=== PATIENT | female | born 1955 | race Caucasian/White ===

== ENCOUNTER 2017-12-19 13:09 | Inpatient (IN) | payer MEDICAID, SELFPAY ==
[2017-12-19] VITALS (10 sets, daily range): BP systolic 107–135; BP diastolic 71–94; PULSE 86–112; RESP 15–18; TEMP 36.2–37; O2SAT 95–100; BMI 20.5; BMI 22.3
[2017-12-19 14:51] LABS: Absolute Lymphocyte Count 0.51 X10^3/ul (0.83-4.51); Absolute Neutrophil Count 7.6 X10^3/uL (2.0-7.7); Hematocrit 42.3 % (37-47); Hemoglobin 14.3 g/dl (12.0-15.0); Lymphocyte # 0.51 X10^3/ul (4.0); Lymphocyte % 5.9 % (19-41); Mean Corp Hgb Conc 33.8 g/gl (32-36); Mean Corpuscular Hgb 33.7 pg (27.0-32.0); Mean Corpuscular Volume 99.8 fL (81-99); Mean Platelet Vol. 10.1 fl (6.2-12.0); Monocyte# 0.47 X10^3/uL; Monocyte% 5.5 % (0-10); Neutrophil # 7.61 X10^3/uL (2.7-7.7); Neutrophil % 88.5 % (47-70); Platelet Count 115 K/mm3 (150-450); RBC Distribution Width CV 12.4 % (11.6-14.6); RBC Distribution Width SD 45.3 fl (35.1-43.9); Red Blood Count 4.24 M/mm3 (4.2-5.4); White Blood Count 8.6 K/mm3 (4.4-11.0)
[2017-12-19 14:54] LABS: Differential Indicated SCAN CRITERIA MET; POSITIVE COUNT NO; POSITIVE DIFFERENTIAL YES; POSITIVE MORPHOLOGY NO
[2017-12-19] MEDS: 0.9% Normal Saline 1,000 ML 125 ML IV (14:56)
[2017-12-19 14:58] LABS: Mucous, Urine 0 SEEN /hpf (<or=2+); Red Blood Cells-Urine 0 SEEN /hpf (0-5)
[2017-12-19 15:01] LABS: Color, Urine Yellow (Yellow); Glucose, Dipstick Normal (Normal); Ketone-Dipstick 5 mg/dl (Negative); Leukocyte Esterase-Dipstick 25 /ul (Negative); Nitrite-Dipstick Negative (Negative); Occult Blood-Urine Negative /ul (Negative); Protein-Dipstick 15 mg/dl (Negative); Urine Bilirubin Dipstick Negative (Negative); Urine Clarity Sl. Cloudy (Clear); Urine Urobilinogen 1 mg/dl (Normal)
[2017-12-19 15:03] LABS: Anion Gap 11 (5-15); BUN 15 mg/dL (7-18); BUN/Creat Ratio 17.5 RATIO (10-20); Calcium,Total 9.9 mg/dL (8.5-10.1); Chloride 98 mmol/L (98-107); Creatinine, Serum 0.86 mg/dL (0.55-1.02); EST Glomerular Filtration Rate 71 mL/min (>60); Est Glom Filt Rate - Afr Amer 86 mL/min (>60); Estimated Creatinine Clearance 53.64 ml/min; Glucose 207 mg/dL (74-106); Potassium 4.4 mmol/L (3.5-5.1); Sodium Level 133 mmol/L (136-145)
[2017-12-19 15:07] LABS: Bacteria RARE /hpf (None Seen); Squamous Epithelial Cells - UA 5-10 SEEN /hpf (5-10); White Blood Cells 0-5 SEEN /hpf (0-5)
[2017-12-19 15:09] LABS: Platelet Estimate SLT DEC (ADEQ)
[2017-12-19 15:16] LABS: Lactic Acid 1.4 mmol/L (0.4-2.0)
--- NOTE | 2017-12-19 16:53 | NURSING ---
DR LIV KIM
[2017-12-19] MEDS: Ondansetron 4 MG/2 ML Vial IV (16:55)
[2017-12-19] MEDS: Morphine 4 MG/ML Syringe IV (16:57)
--- NOTE | 2017-12-19 17:06 | ED.DCSUM_ITS ---
- ER Visit Summary Date of Service: 12/19/17 Chief Complaint: [Abdominal pain] History of Present Illness: The patient is a 62 F [presents the emergency department complaint of abdominal pain that started 2 days ago. Patient describes nausea and she vomited 3 or 4 times yesterday. Patient states her last bowel movement was about 3-1/2 days ago. Patient denies any fever. She denies any new medications. She denies any blood in her stool. Patient has had prior hysterectomy but no other abdominal surgeries. Patient does have a history of cirrhosis of the liver with ascites.] Physical Examination: [HEENT-PERRLA, EOMI. Cranial nerves II through XII grossly intact. TMs clear. Mucous membranes moist. No adenopathy. Cardiovascular-regular rate and rhythm without murmur or ectopy Lungs-clear to auscultation, chest wall stable without crepitus or subcu emphysema Abdomen-hypoactive bowel sounds. Patient has diffuse tenderness mostly to the suprapubic area and left lower quadrant. There is no rebound, rigidity, or perineal signs. Extremities-intact ?4, normal range of motion, normal pulses, atraumatic] Test Results: [CBC with differential obtained showed a normal white blood cell count of 8.6, hemoglobin 14, hematocrit 42, platelets 115. Chemistries were unremarkable. Lactate was normal at 1.4. Urinalysis was normal. CT scan of the abdomen and pelvis with IV and p.o. contrast was read as a cecal volvulus with high-grade obstruction.] Emergency Department Course and Treatment: [I discussed case with Dr. Wells who is the surgeon electrical continuity inspector who asked that we place an NG tube to low intermittent suction in order PT and INR. Patient will be seen by the surgeon in the ER and likely taken to the OR] Treatment Plan: [Admit admit] Disposition: [Admit] Impression: [Cecal volvulus with high-grade obstruction This note was generated with Server[employer] dictation software. It may contain incorrect words, spelling, and punctuation that were not noted in review of the chart prior to signing ED Disposition - Plan for ED Patient: Chief Complaint: Abd Pain Referrals: Trevor Morales MD [Primary Care Provider] -
--- NOTE | 2017-12-19 17:14 | NURSING ---
OB CECAL VOLVULUS WITH HIGH GRADE OBSTRUCTION MED SURG [facility]TTA
[2017-12-19 17:37] LABS: International Normalized Ratio 1.1; Prothrombin Time (Protime)PT. 14.5 SECONDS (11.7-14.9)
[2017-12-19 17:38] LABS: Partial Thromboplast Time 33.6 Seconds (24.1-36.2)
--- NOTE | 2017-12-19 17:42 | NURSING ---
DR PECK IN ER
[2017-12-19 17:59] LABS: AST(SGOT) 58 U/L (15-37); Alanine Aminotransfer ALT/SGPT 35 U/L (13-56); Albumin, Serum 3.9 g/dL (3.2-5.0); Alkaline Phosphatase 106 U/L (45-117); Bilirubin, Direct 0.57 mg/dL (0.00-0.30); Globulin 4.1 g/dL (2.2-4.2)
--- NOTE | 2017-12-19 18:32 | PCM.HP.STD ---
Problem List (1) Cecal volvulus Status: Acute History of Present Illness Date of Admission: 12/19/17 The patient is a 62 year old F who presented to the emergency room with abdominal pain and nausea and vomiting of 2 days duration. The patient reports that her abdominal pain is diffuse. She says since receiving morphine in the ER her pain has subsided. She said she has not had any abdominal surgeries except for hysterectomy. She has never had a bowel obstruction in the past or volvulus in the past. She does not have any fever or chills. She says she has not had any bowel movements or gas in the last 48 hours. Past Medical History Past Medical History (Chronic Problems): Chronic Problems Clavicular fracture (Chronic) Left wrist fracture (Chronic) Alcohol abuse (Chronic) Subarachnoid hemorrhage following injury (Chronic) Allergies No Known Allergies Allergy (Verified 12/19/17 13:12) Home Medications: Ambulatory Orders Medication Instructions Recorded Folic Acid 1 mg PO DAILY@0800 08/01/15 Multivitamins,Ther W-Minerals 1 tablet PO DAILYCM tablet 08/04/15 [Multivitamin With Minerals] Levothyroxine [Synthroid] 25 mcg PO DAILY #30 tablet 08/15/15 Lactulose [Chronulac] 30 gm PO BID 09/22/16 Vitamin B Complex 1 each PO DAILY 09/22/16 Surgical History: hysterectomy, tonsillectomy, - - . 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 Smoking Status: Never smoker - *Family History Maternal History Items: No pertinent history Paternal History Items: Heart Disease Review of Systems Constitutional: Denies: Chills, Fever Eyes: Denies: Drainage HEENT: Denies: Difficulty Swallowing Cardiovascular: Denies: Chest Pain Respiratory: Denies: Cough, Shortness of Breath Gastrointestinal: Reports: Abdominal Pain, Nausea, Vomiting Genitourinary: Denies: Incontinence Musculoskeletal: Denies: Joint Tenderness Skin: Denies: Dryness Neurological: Denies: Balance problems Psychiatric: Denies: Anxiety Hematologic/ Lymphatic: Denies: Anemia VTE Information - Inpt Only VTE Present on Admission: No Patient Problems: Active and Suspected Problems Cecal volvulus (Acute) - Physical Exam General: Alert, Oriented x3, Cooperative, No apparent distress HEENT: Atraumatic, PERRLA, EOMI, Normocephalic Oral: Moist Mucosa Neck: No JVD Lungs: Normal air movement Cardiovascular: Regular Rhythm, Tachycardic Abdomen: Soft, Distended, Tender Extremities: No clubbing Skin: No rashes Musculoskeletal: No Muscle Wasting Neurological: Cranial nerves II-XII grossly intact Psych/Mental Status: Normal Affect, Appropriate Vital Signs Temp Pulse Resp BP Pulse Ox 98.6 F 105 H 16 125/92 H 96 12/19/17 18:13 12/19/17 18:13 12/19/17 18:13 12/19/17 18:13 12/19/17 18:13 Oxygen Delivery Method Room Air Weight: 112 lb Body Mass Index (BMI) 20.5 Laboratory Tests Past 24 Hrs 12/19/17 12/19/17 12/19/17 14:40 14:40 14:40 WBC 8.6 RBC 4.24 Hgb 14.3 Hct 42.3 MCV 99.8 H MCH 33.7 H MCHC 33.8 RDW 12.4 RDW Differential 45.3 H Plt Count 115 L MPV 10.1 Immature Gran % (Auto) 0.100 Neut % (Auto) 88.5 H Lymph % (Auto) 5.9 L [place] % (Auto) 5.5 Eos % (Auto) 0.0 Baso % (Auto) 0.0 Absolute Neuts (auto) 7.6 Absolute Lymphs (auto) 0.51 L Total Counted Not Reportable Platelet Estimate SLT DEC PT INR APTT Sodium 133 L Potassium 4.4 Chloride 98 Carbon Dioxide 24.0 Anion Gap 11 BUN 15 Creatinine 0.86 Estim Creat Clear Calc 53.64 Est GFR (MDRD) Af Amer 86 Est GFR (MDRD) Non-Af 71 BUN/Creatinine Ratio 17.5 Glucose 207 H Lactic Acid 1.4 Calcium 9.9 Total Bilirubin Direct Bilirubin AST ALT Alkaline Phosphatase Total Protein Albumin Globulin Urine Color Urine Clarity Urine pH Ur Specific [place] Urine Protein Urine Glucose (UA) Urine Ketones Urine Occult Blood Urine Nitrite Urine Bilirubin Urine Urobilinogen Ur Leukocyte Esterase Urine RBC Urine WBC Ur Squamous Epith Cells Urine Bacteria Urine Mucus 12/19/17 12/19/17 12/19/17 14:40 14:40 14:45 WBC RBC Hgb Hct MCV MCH MCHC RDW RDW Differential Plt Count MPV Immature Gran % (Auto) Neut % (Auto) Lymph % (Auto) [place] % (Auto) Eos % (Auto) Baso % (Auto) Absolute Neuts (auto) Absolute Lymphs (auto) Total Counted Platelet Estimate PT 14.5 INR 1.1 APTT 33.6 Sodium Potassium Chloride Carbon Dioxide Anion Gap BUN Creatinine Estim Creat Clear Calc Est GFR (MDRD) Af Amer Est GFR (MDRD) Non-Af BUN/Creatinine Ratio Glucose Lactic Acid Calcium Total Bilirubin 2.20 H Direct Bilirubin 0.57 H AST 58 H ALT 35 Alkaline Phosphatase 106 Total Protein 8.0 Albumin 3.9 Globulin 4.1 Urine Color Yellow Urine Clarity Sl. Cloudy Urine pH 6.0 Ur Specific [place] 1.020 Urine Protein 15 H Urine Glucose (UA) Normal Urine Ketones 5 H Urine Occult Blood Negative Urine Nitrite Negative Urine Bilirubin Negative Urine Urobilinogen 1 H Ur Leukocyte Esterase 25 H Urine RBC 0 SEEN Urine WBC 0-5 SEEN Ur Squamous Epith Cells 5-10 SEEN Urine Bacteria RARE Urine Mucus 0 SEEN Clinical Impression(s) from Imaging Studies Abdomen/Pelvis CT 12/19/17 14:32 IMPRESSION: 1. Cecal volvulus with high-grade obstruction. No evidence of perforation. 2. Cholelithiasis. No evidence of acute cholecystitis. 3. Heterogeneous posterior segment of the liver without focal lesion. Question perfusion abnormality. Dr. Larsen discussed the critical findings with Dr. Jasso at 4:52 PM. N.B. : The above information has been verbally conveyed by Hazel Larsen MD to Sruthi Medrano, [facility] Physician, on 12/19/2017 16:53:45 (ET). Electronically Signed: Hazel Larsen MD at 16:53 EDT Tel , Service support , KUB X-Ray 12/19/17 17:30 IMPRESSION: 1. Nasogastric tube in the stomach. 2. Cecal volvulus with proximal bowel obstruction. Electronically Signed: Hazel Larsen MD at 18:00 EDT Tel , Service support , Assessment/Plan All Active Problems Cecal volvulus (Acute) Medical management (Acute) 62-year-old female with cecal volvulus and obstruction 1. The patient has obstipation of 48 hours and abdominal pain and distention. The CT scan confirms cecal volvulus with bowel obstruction. 2. I explained the recommendation of laparotomy with cecal resection and anastomosis. I explained the surgery in detail and the risks including but not limited to bleeding, infection, injury to other bowel, injury to other organs, wound infection, anastomotic leak. The patient understands all the risks and is willing to proceed with surgery. 3. The patient has a prior diagnosis of cirrhosis. Her liver enzymes are normal except for an elevated total bilirubin level. Her coagulation panel was normal. The patient has not required paracentesis in the last 2 years and has minimal ascites on CT scan. Rajendra Wells MD Pager: [facility] [address] [place] [address] [address] [place] [address] Office:
--- NOTE | 2017-12-19 19:00 | COL_PTH ---
PATIENT: RADHA FALLON LOC: MS3 U#:[id number] AGE/SX: 62/F ROOM: [facility] RE12/19/[address]: Dr. Rajendra Wells MD : 1955 BED: 1 DIS: 12/28/2017 SPEC #: [id number] RECD: 12/19/17 21:00 STATUS: FLO TAO #: [id number] KELLIE: 12/19/17 19:[address]: Rajendra Wells DEPT: SURGICAL PATHOLOGY RECD BY: Chloe Reis ENTERED: 12/22/17 08:44 SP TYPE: COLON OTHR DR: Dr. Trevor Morales MD Tissues: Colon, NOS Procedures: Surgery Specimen Level V HEADER OPERATION: Exploratory laparotomy, right hemicolectomy PRE-OP DIAGNOSIS: Cecal volvulus TISSUE SUBMITTED: Right colon MICROSCOPIC DIAGNOSIS Right colon, right hemicolectomy: Hemorrhagic infarction with ulceration and transmural acute inflammation and acute serositis. Focal benign lymphoid hyperplasia of small bowel. Margins of excision with no significant pathologic change. Appendix with no significant pathologic change. Eight out of eight lymph nodes with no significant pathologic change. AM:ana 12/24/17 COMMENT The findings are consistent with cecal volvulus and impending perforation. Clinical correlation is suggested. Case has been reviewed in consultation with Dr. Ewing who concurs with the above diagnosis. IDC:RUTH MICROSCOPIC DESCRIPTION Slides are reviewed. GROSS DESCRIPTION Received in fixative is one container labeled with the patient's name and designated right colon. The specimen consists of a right hemicolectomy specimen consisting of dilated cecum, a portion of partially dilated ascending colon and attached small intestine. The appendix measures 4 cm in length and up to 0.6 cm in diameter. Sections of the appendix reveal pinpoint lumen. The dilated cecum measures up to 15 cm in diameter. The cecum with ascending colon measures up to 30 cm in length. The portion of ascending colon measures 5 to 8 cm in diameter. The segment of small intestine measures 5 cm in length. Both resection margins are stapled. The serosal surface appears unremarkable. The attached tissue and mesentery measures up to 4 cm in length. Also present in the container is a segment of small intestine measuring 7.5 cm in length. Both resection margins are stapled. The smaller segment is opened and shows a small amount of fecal material. No mucosal lesion is identified. The segment of right hemicolectomy is open and shows the lumen contains fecal material. The mucosa shows focal area of ulceration and flattened mucosal fold. No mucosal lesion is identified. Sections will be submitted after overnight fixation. / RUTH:ana 12/22/17 Sections of pericolonic adipose tissue reveal multiple lymph nodes. The largest lymph node measures 1 cm in greatest dimension. Cooker Casing sections are submitted as follows: 1 ? detached segment of bowel, 2 ? appendix, 3 ? proximal and distal resection margin, 4 ? congested and hemorrhagic and ulcerated area, 5 ? tour sales representative sections of small and large intestine, 6 ? ileocecal valve, 7 ? multiple lymph nodes, 8 ? one bisected lymph node. / RUHT:ana 12/23/17 TC:2 CPT: 12079
--- NOTE | 2017-12-19 20:56 | PCM.OPRPT ---
Problem List (1) Cecal volvulus Status: Acute Report of Operation Date of Procedure: 12/19/17 Pre-Operative Diagnosis: Cecal volvulus Post-Operative Diagnosis: Same Surgery/Procedure Performed:: Exploratory laparoscopy with right hemicolectomy Specimen's removed: Cecum Description of Procedure: The patient was brought back to the operating room and general anesthesia was induced. A Dey catheter was placed and clear yellow urine was returned. The abdomen was prepped and draped in usual sterile fashion. Next an incision was made in the midline from the xiphoid to the umbilicus. It was sharply deepened to the fascia and the fascia was elevated and incised. The peritoneum was then elevated and incised and a finger was inserted into the abdomen and used to guard the colon as electrocautery was used to open the fascia and peritoneum inferiorly and superiorly. The incision had to be extended inferior to the umbilicus by a few centimeters. Next the very distended right colon was delivered from the abdomen. The colon was viable with very distended and there was a cecal volvulus. It appeared to involve the colon up until the distal ascending colon and the terminal ileum. An extra large wound protector was placed into the wound. An area just distal to the volvulus was elevated and a right angle clamp was used to make a small window in the mesentery just deep to the right colon. A 75 mm stapler was then placed across the colon and used to divide the ascending colon. Next the other side of the volvulus was located and the terminal ileum was taken down in the same fashion. Next the impact LigaSure was used to take the mesentery of the cecum just below the colon. The ileocecal vessel was located and tied off with an 0 silk stick tie. The specimen was then transferred to the back table and the mesentery was inspected for bleeding and was hemostatic. Next the small bowel was run proximally and appeared normal all the way to the ligament of Treitz. The colon was inspected and appeared normal as well. An area of the distal ascending colon was selected for anastomosis. The white line of Toldt was taken down this was mobilized. Next the staple line at the tenia was resected and one end of the stapler was placed into the colon. Next the staple line was taken down at the antimesenteric segment of the terminal small bowel and the other stapler segment was placed into the small bowel. The bowel segments were aligned so that the antimesenteric side of the small bowel met the tenia and was aligned. The distal segment of the stapler did not include any other bowel. The mesentery appeared smooth with no twisting of the bowel. The stapler was fired and removed. The inside of the bowel was inspected and the staple line appeared hemostatic with no bleeding. Next Matthieu clamps were placed across the enterotomy and a TL 60 stapler was used to close the enterotomy. There was some bleeding at the staple line and this was controlled with interrupted 3-0 silk sutures. There appeared to be good viability to the staple line with bleeding and no necrosis of tissue. The anastomosis was palpated with index and thumb and was widely patent. Next the mesenteric defect was closed with a running 3-0 Vicryl suture. Next the wound protector was removed from the abdomen and the abdomen was irrigated copiously with saline. The abdomen appeared hemostatic. The omentum was draped over the bowel. Next the staff all changed gloves and gowns and the abdomen was redraped over the old drape. The fascia was then grasped with Debora clamps and a large malleable was placed into the abdomen over the bowel. The fascia was reapproximated with 2 #1 PDS sutures starting at either end and meeting in the middle. Next the subcutaneous tissue was irrigated copiously. The skin was then closed with tigre. The incision was dressed with 4 x 4's and tape and the Dey will be left in to monitor urine output as well the NG tube. The specimen was removed intact without any perforation during the procedure. There was minimal spillage of any stool or bowel contents. - Admit VTE Documentation VTE Mechan Device Prophylaxis: SCD's
[2017-12-19] MEDS: 0.9% Normal Saline 1,000 ML 100 ML IV (23:22)
[2017-12-19] MEDS: Morphine 2 MG/ML Syringe IV (23:26)
[2017-12-19] MEDS: 0.9% NaCl Peripheral Flush Adult/Peds IV (23:26)
[2017-12-20] VITALS (9 sets, daily range): BP systolic 91–107; BP diastolic 53–74; PULSE 91–114; RESP 16–18; TEMP 36.7–37.2; O2SAT 88–97; BMI 22.3
[2017-12-20] MEDS: Morphine 2 MG/ML Syringe IV ×7 (03:22→22:19)
[2017-12-20 06:10] LABS: Absolute Lymphocyte Count 0.67 X10^3/ul (0.83-4.51); Absolute Neutrophil Count 5.3 X10^3/uL (2.0-7.7); Basophil# 0.01 X10^3/uL; Basophil% 0.2 % (0-1); Hematocrit 34.8 % (37-47); Lymphocyte # 0.67 X10^3/ul (4.0); Lymphocyte % 10.2 % (19-41); Mean Corp Hgb Conc 34.5 g/gl (32-36); Mean Corpuscular Hgb 35.2 pg (27.0-32.0); Mean Corpuscular Volume 102.1 fL (81-99); Mean Platelet Vol. 10.7 fl (6.2-12.0); Monocyte# 0.57 X10^3/uL; Monocyte% 8.6 % (0-10); Neutrophil # 5.34 X10^3/uL (2.7-7.7); Platelet Count 88 K/mm3 (150-450); RBC Distribution Width CV 12.4 % (11.6-14.6); RBC Distribution Width SD 45.1 fl (35.1-43.9); Red Blood Count 3.41 M/mm3 (4.2-5.4); White Blood Count 6.6 K/mm3 (4.4-11.0)
[2017-12-20 06:23] LABS: POSITIVE COUNT NO; POSITIVE DIFFERENTIAL NO; POSITIVE MORPHOLOGY NO
[2017-12-20] MEDS: 0.9% NaCl Peripheral Flush Adult/Peds IV ×5 (06:24→22:18)
[2017-12-20 06:37] LABS: Anion Gap 9 (5-15); BUN 7 mg/dL (7-18); BUN/Creat Ratio 11.3 RATIO (10-20); Calcium,Total 7.4 mg/dL (8.5-10.1); Chloride 106 mmol/L (98-107); Creatinine, Serum 0.62 mg/dL (0.55-1.02); EST Glomerular Filtration Rate 103 mL/min (>60); Est Glom Filt Rate - Afr Amer 125 mL/min (>60); Estimated Creatinine Clearance 74.41 ml/min; Glucose 126 mg/dL (74-106); Magnesium 1.7 mg/dL (1.6-2.6); Phosphorus 2.9 mg/dL (2.5-4.9); Potassium 3.7 mmol/L (3.5-5.1); Sodium Level 139 mmol/L (136-145)
--- NOTE | 2017-12-20 06:43 | NURSING ---
Attempted to mobilize pt. Assisted to edge of bed to dangle and pt c/o pain and dizziness. Morphine given recently. Assisted back to bed and positioned for comfort. No further needs voiced at this time. Call light in reach.
--- NOTE | 2017-12-20 07:21 | PCM.PN.SRG ---
Patient Problems: Active and Suspected Problems Cecal volvulus (Acute) Subjective: Patient doing well this morning and pain is well controlled. - Physical Exam General: Alert, Oriented x3, Cooperative, No apparent distress HEENT: Atraumatic, PERRLA, EOMI, Normocephalic Lungs: Normal air movement, No rhonchi Cardiovascular: Regular rate, Regular Rhythm Abdomen: Soft, Non-Distended, Tender - Appropriate mild tenderness, - - Dressings are dry Vital Signs Temp Pulse Resp BP Pulse Ox 98.3 F 98 16 101/61 94 12/20/17 06:18 12/20/17 06:18 12/20/17 06:18 12/20/17 06:18 12/20/17 06:18 Oxygen Flow Rate (L/min) 3 Oxygen Delivery Method Room Air Weight: 121 lb 14.65 oz Body Mass Index (BMI) 22.3 Intake and Output for Last 24 Hours 12/18/17 12/19/17 12/20/17 23:59 23:59 23:59 Intake Total 2600 / 2600 979 / 979 Output Total 150 / 250 400 / 400 Balance 2450 / 2350 579 / 579 Laboratory Tests Past 24 Hrs 12/20/17 12/20/17 05:30 05:30 WBC 6.6 RBC 3.41 L Hgb 12.0 Hct 34.8 L MCV 102.1 H MCH 35.2 H MCHC 34.5 RDW 12.4 RDW Differential 45.1 H Plt Count 88 L MPV 10.7 Immature Gran % (Auto) 0.000 Neut % (Auto) 81.0 H Lymph % (Auto) 10.2 L [place] % (Auto) 8.6 Eos % (Auto) 0.0 Baso % (Auto) 0.2 Absolute Neuts (auto) 5.3 Absolute Lymphs (auto) 0.67 L Total Counted Not Reportable Sodium 139 Potassium 3.7 Chloride 106 Carbon Dioxide 24.0 Anion Gap 9 BUN 7 Creatinine 0.62 Estim Creat Clear Calc 74.41 Est GFR (MDRD) Af Amer 125 Est GFR (MDRD) Non-Af 103 BUN/Creatinine Ratio 11.3 Glucose 126 H Calcium 7.4 L Phosphorus 2.9 Magnesium 1.7 Medical Necessity - Tobacco Use Smoking Status: Never smoker Assessment/Plan All Active Problems Cecal volvulus (Acute) Medical management (Acute) 62-year-old female status post right patel-colectomy for cecal volvulus 1. Patient's pain is well controlled. Her NG has had no output and is clear the tubing. I will remove her NG. Her blood pressure was in the 90s and she was a little tachycardic early this morning. I will order a fluid bolus. Urine is clear and the Dey tubing. I will remove her Dey and monitor strict I's and O's. Creatinine was normal. 2. Once patient begins to pass flatus she may start a clear liquid diet and advance as tolerated. When she is tolerating a diet she may be discharged home. 3. Hemoglobin stable. Lovenox starting tomorrow. 4. PPI/SCDs. Encourage ambulation and incentive spirometer. Rajendra Wells MD Pager: [facility] [address] [place] [address], [address] [place] [address] Office:
[2017-12-20] MEDS: 0.9% Normal Saline 1,000 ML 100 ML IV ×2 (09:01→17:49)
--- NOTE | 2017-12-20 09:10 | NURSING ---
Sat up at edge of bed for one minute. ASsisted pt walking to doorway and back to bed. Encouraged pt to sit up in chair but unable to. Medicated for pain. Dey out. Pt will call for assistance when has urge to void. She also is aware of need of strict I&O.
--- NOTE | 2017-12-20 11:08 | NURSING ---
Walked to bathroom and back to bed. Is willing to walk in smith in another hour.
[2017-12-21] VITALS (8 sets, daily range): BP systolic 98–125; BP diastolic 64–75; PULSE 99–112; RESP 16–18; TEMP 37.2–37.7; O2SAT 90–94
[2017-12-21] MEDS: Morphine 2 MG/ML Syringe IV ×7 (03:33→23:59)
[2017-12-21] MEDS: 0.9% Normal Saline 1,000 ML 100 ML IV ×3 (03:34→23:57)
--- NOTE | 2017-12-21 07:30 | PCM.PN.SRG ---
Patient Problems: Active and Suspected Problems Cecal volvulus (Acute) Subjective: Patient is doing well this morning. Pain is well-controlled on IV medication. She is not passing any flatus yet but she does feel rumbling. No nausea or vomiting. - Physical Exam General: Alert, Oriented x3, Cooperative Lungs: Normal air movement Cardiovascular: Regular rate, Regular Rhythm Abdomen: Soft, Non-Distended, Tender - Mild appropriate tenderness to palpation, - - Incision is clean dry and intact Vital Signs Temp Pulse Resp BP Pulse Ox 98.9 F 99 16 113/70 93 12/21/17 01:40 12/21/17 01:40 12/21/17 01:40 12/21/17 01:40 12/21/17 01:40 Oxygen Flow Rate (L/min) 2 Oxygen Delivery Method Room Air Weight: 121 lb 14.65 oz Body Mass Index (BMI) 22.3 Intake and Output for Last 24 Hours 12/19/17 12/20/17 12/21/17 23:59 23:59 23:59 Intake Total 2600 / 2600 2756 / 2756 1179 / 1179 Output Total 150 / 250 1050 / 1050 450 / 450 Balance 2450 / 2350 1706 / 1706 729 / 729 Medical Necessity - Tobacco Use Smoking Status: Never smoker Assessment/Plan All Active Problems Cecal volvulus (Acute) Medical management (Acute) 62-year-old female status post right hemicolectomy for cecal volvulus. POD 2 1. Awaiting bowel function. Will start clear liquids and advance as tolerated once patient is passing flatus. 2. IV fluids, n.p.o., SCDs, PPI, Lovenox. Rajendra Wells MD Pager: [facility] [address] [place] [address], [address] [place] [address] Office:
[2017-12-21] MEDS: 0.9% NaCl Peripheral Flush Adult/Peds IV ×4 (10:29→21:08)
[2017-12-21] MEDS: Enoxaparin 40 MG/0.4 ML Syringe SC (10:29)
[2017-12-22 00:02] VITALS: TEMP 37.1
[2017-12-22 03:20] VITALS: BP 125/85; PULSE 107; RESP 18; TEMP 36.8; O2SAT 93
[2017-12-22] MEDS: Morphine 2 MG/ML Syringe IV (03:21)
[2017-12-22] MEDS: 0.9% NaCl Peripheral Flush Adult/Peds IV ×5 (03:22→15:34)
[2017-12-22 06:52] LABS: Absolute Lymphocyte Count 0.83 X10^3/ul (0.83-4.51); Absolute Neutrophil Count 4.5 X10^3/uL (2.0-7.7); Basophil# 0.01 X10^3/uL; Basophil% 0.2 % (0-1); Eosinophil# 0.02 X10^3/uL; Eosinophils% 0.3 % (0-5); Hematocrit 35.5 % (37-47); Lymphocyte # 0.83 X10^3/ul (4.0); Lymphocyte % 13.9 % (19-41); Mean Corp Hgb Conc 33.8 g/gl (32-36); Mean Corpuscular Volume 103.5 fL (81-99); Mean Platelet Vol. 10.5 fl (6.2-12.0); Monocyte# 0.63 X10^3/uL; Monocyte% 10.5 % (0-10); Neutrophil # 4.49 X10^3/uL (2.7-7.7); Neutrophil % 74.9 % (47-70); Platelet Count 96 K/mm3 (150-450); RBC Distribution Width CV 12.7 % (11.6-14.6); RBC Distribution Width SD 46.7 fl (35.1-43.9); Red Blood Count 3.43 M/mm3 (4.2-5.4)
[2017-12-22 07:03] LABS: POSITIVE COUNT NO; POSITIVE DIFFERENTIAL NO; POSITIVE MORPHOLOGY NO
[2017-12-22 07:12] LABS: Anion Gap 16 (5-15); BUN 6 mg/dL (7-18); BUN/Creat Ratio 13.6 RATIO (10-20); Chloride 103 mmol/L (98-107); Creatinine, Serum 0.44 mg/dL (0.55-1.02); EST Glomerular Filtration Rate 154 mL/min (>60); Est Glom Filt Rate - Afr Amer 186 mL/min (>60); Estimated Creatinine Clearance 104.85 ml/min; Glucose 63 mg/dL (74-106); Potassium 3.1 mmol/L (3.5-5.1); Sodium Level 138 mmol/L (136-145)
--- NOTE | 2017-12-22 07:24 | PCM.WORK.EX ---
Work/School Excuse Work/School Excuse for:: Patient Please excuse this person from:: Work From: 12/19/17 through: 01/08/18
[2017-12-22] MEDS: Ketorolac 15 MG/ML Vial IV ×3 (07:48→21:30)
--- NOTE | 2017-12-22 08:08 | PCM.PN.SRG ---
Patient Problems: Active and Suspected Problems Cecal volvulus (Acute) Subjective: Patient is not having any nausea or vomiting. No flatus yet. - Physical Exam General: Alert HEENT: Atraumatic Lungs: Normal air movement Cardiovascular: Regular rate, Regular Rhythm Abdomen: Soft, Non-Distended, Tender - Appropriately tender to palpation, - - Incision clean dry and intact Vital Signs Temp Pulse Resp BP Pulse Ox 98.2 F 107 H 18 125/85 H 93 12/22/17 03:20 12/22/17 03:20 12/22/17 03:20 12/22/17 03:20 12/22/17 03:20 Oxygen Flow Rate (L/min) 2 Oxygen Delivery Method Room Air Weight: 121 lb 14.65 oz Body Mass Index (BMI) 22.3 Intake and Output for Last 24 Hours 12/20/17 12/21/17 12/22/17 23:59 23:59 23:59 Intake Total 2756 / 2756 2369 / 2369 1200 / 1200 Output Total 1050 / 1050 1205 / 1205 300 / 300 Balance 1706 / 1706 1164 / 1164 900 / 900 Laboratory Tests Past 24 Hrs 12/22/17 12/22/17 05:40 05:40 WBC 6.0 RBC 3.43 L Hgb 12.0 Hct 35.5 L MCV 103.5 H MCH 35.0 H MCHC 33.8 RDW 12.7 RDW Differential 46.7 H Plt Count 96 L MPV 10.5 Immature Gran % (Auto) 0.200 Neut % (Auto) 74.9 H Lymph % (Auto) 13.9 L [place] % (Auto) 10.5 H Eos % (Auto) 0.3 Baso % (Auto) 0.2 Absolute Neuts (auto) 4.5 Absolute Lymphs (auto) 0.83 Total Counted Not Reportable Sodium 138 Potassium 3.1 L Chloride 103 Carbon Dioxide 19.0 L Anion Gap 16 H BUN 6 L Creatinine 0.44 L Estim Creat Clear Calc 104.85 Est GFR (MDRD) Af Amer 186 Est GFR (MDRD) Non-Af 154 BUN/Creatinine Ratio 13.6 Glucose 63 L Calcium 8.0 L Medical Necessity - Tobacco Use Smoking Status: Never smoker Assessment/Plan All Active Problems Cecal volvulus (Acute) Medical management (Acute) 62-year-old female status post ileocecectomy for cecal volvulus, POD 3 1. Patient is not passing gas but she feels like she is close. She is not having any nausea or vomiting. I will try a clear liquid diet. 2. Hypokalemia-replaced 3. Add Toradol for pain control. Also add Colace. Rajendra Wells MD Pager: [facility] [address] [place] [address], [address] [place] [address] Office:
[2017-12-22] MEDS: Enoxaparin 40 MG/0.4 ML Syringe SC (09:06)
[2017-12-22] MEDS: Docusate Sodium 100 MG Capsule PO ×2 (09:06→21:30)
[2017-12-22 09:16] VITALS: BP 134/82; PULSE 106; RESP 18; TEMP 37.3; O2SAT 93
--- NOTE | 2017-12-22 10:25 | CASEMGMT ---
ANSELMO HAZEL Face to Face with patient for initial transition planning/care coordination assessment. RN CM introduced self and role at [facility]. Patient sitting up in bed, alert and oriented. Patient willing to participate in assessment and is able to answer all questions appropriately. Care providers, pharmacy, and demographics verified. See link attached. Patient wishes to discharge home, denies need for home health at this time. Patient states she has no further needs or concerns at this time. CM to follow for discharge planning needs that may arise. Disposition Plan: Patient to discharge home with family support and follow-up plans in place. Angelina TAYLOR, RN, CM
[2017-12-22 14:34] VITALS: BP 122/66; PULSE 107; RESP 18; TEMP 37.9; O2SAT 97
[2017-12-22 20:00] VITALS: BP 138/88; PULSE 104; RESP 16; TEMP 37.4; O2SAT 97
[2017-12-22] MEDS: oxyCODONE 5 MG Tablet PO (20:13)
[2017-12-23 02:00] VITALS: BP 136/89; PULSE 89; RESP 18; TEMP 37.3; O2SAT 96
[2017-12-23] MEDS: Ketorolac 15 MG/ML Vial IV ×2 (05:20→14:16)
[2017-12-23] MEDS: Levothyroxine 25 MCG TABLET PO (05:20)
[2017-12-23] MEDS: oxyCODONE 5 MG Tablet PO ×2 (05:20→20:39)
--- NOTE | 2017-12-23 06:50 | NURSING ---
Bladder scanned for >650. Dr. Wells notified. Order for straight cath obtained. Pt straight cath for 50cc of dark katarina urine. Dr. Wells notified, Give 500cc fluid bolus at this time.
[2017-12-23 07:46] VITALS: BP 134/82; PULSE 88; RESP 16; TEMP 36.8; O2SAT 98
--- NOTE | 2017-12-23 09:28 | PCM.PN.SRG ---
Patient Problems: Active and Suspected Problems Cecal volvulus (Acute) Subjective: Patient has low urine output overnight. Bladder scan showed 600 cc of fluid but on straight catheter only had 30 cc of concentrated urine. She did not tolerate much diet as she was not hungry. She is passing gas and had a small bowel movement. No nausea or vomiting. - Physical Exam General: Alert, Oriented x3, Cooperative Lungs: Normal air movement Cardiovascular: Regular rate, Regular Rhythm Abdomen: Soft, - - Incision is clean dry and intact with no drainage. Vital Signs Temp Pulse Resp BP Pulse Ox 98.2 F 88 16 134/82 H 98 12/23/17 07:46 12/23/17 07:46 12/23/17 07:46 12/23/17 07:46 12/23/17 07:46 Oxygen Flow Rate (L/min) 2 Oxygen Delivery Method Room Air Weight: 121 lb 14.65 oz Body Mass Index (BMI) 22.3 Intake and Output for Last 24 Hours 12/21/17 12/22/17 12/23/17 23:59 23:59 23:59 Intake Total 2369 / 2369 2369 / 2369 500 / 500 Output Total 1205 / 1205 700 / 700 210 / 210 Balance 1164 / 1164 1669 / 1669 290 / 290 Medical Necessity - Tobacco Use Smoking Status: Never smoker Assessment/Plan All Active Problems Cecal volvulus (Acute) Medical management (Acute) 62-year-old female status post right patel-colectomy for cecal volvulus, POD 4 1. Patient had a large amount of fluid on bladder scan but nothing on straight cath. This is suspicious for ascites. I will order an ultrasound of the abdomen. The patient is on Aldactone at home. Her vitals have been stable and she was making good urine so I will start this back up. 2. If the patient does have ascites I may ask for paracentesis by IR. Hold Lovenox today. 3. Diet as tolerated. I will add Ensure in case she is having ascites due to malnutrition. Rajendra Wells MD Pager: [facility] [address] [place] [address], [address] [place] [address] Office:
--- NOTE | 2017-12-23 11:13 | NURSING ---
Patient off until to U/S.
[2017-12-23] MEDS: Pantoprazole Sodium 40 MG Tablet PO (11:59)
[2017-12-23] MEDS: Spironolactone 50 MG Tablet 100 MG PO (11:59)
[2017-12-23 14:12] VITALS: BP 133/88; PULSE 88; RESP 18; TEMP 36.9; O2SAT 98
[2017-12-23] MEDS: Enoxaparin 40 MG/0.4 ML Syringe SC (15:26)
[2017-12-23] MEDS: Lactulose 20 GM/30 ML UDC 30 GM PO (17:05)
[2017-12-23 20:10] VITALS: BP 136/92; PULSE 87; RESP 16; TEMP 37.3; O2SAT 99
[2017-12-23] MEDS: Docusate Sodium 100 MG Capsule PO (20:39)
[2017-12-24] MEDS: Ondansetron 4 MG/2 ML Vial IV ×2 (00:29→08:45)
[2017-12-24 02:10] VITALS: BP 135/88; PULSE 86; RESP 16; TEMP 37.1; O2SAT 97
[2017-12-24] MEDS: oxyCODONE 5 MG Tablet PO ×2 (04:38→21:07)
[2017-12-24] MEDS: Levothyroxine 25 MCG TABLET PO (04:38)
--- NOTE | 2017-12-24 04:50 | NURSING ---
Midline incision dressing changed d/t moderate amount of serosanguineous drainage at the distal end.
[2017-12-24 06:20] LABS: Absolute Lymphocyte Count 0.69 X10^3/ul (0.83-4.51); Absolute Neutrophil Count 1.7 X10^3/uL (2.0-7.7); Basophil# 0.01 X10^3/uL; Basophil% 0.3 % (0-1); Eosinophil# 0.03 X10^3/uL; Eosinophils% 0.9 % (0-5); Hematocrit 33.6 % (37-47); Hemoglobin 11.6 g/dl (12.0-15.0); Lymphocyte # 0.69 X10^3/ul (4.0); Lymphocyte % 21.5 % (19-41); Mean Corp Hgb Conc 34.5 g/gl (32-36); Mean Corpuscular Hgb 34.1 pg (27.0-32.0); Mean Corpuscular Volume 98.8 fL (81-99); Mean Platelet Vol. 10.4 fl (6.2-12.0); Monocyte# 0.74 X10^3/uL; Monocyte% 23.1 % (0-10); Neutrophil # 1.73 X10^3/uL (2.7-7.7); Neutrophil % 53.9 % (47-70); Platelet Count 150 K/mm3 (150-450); RBC Distribution Width CV 12.3 % (11.6-14.6); RBC Distribution Width SD 42.7 fl (35.1-43.9); White Blood Count 3.2 K/mm3 (4.4-11.0)
[2017-12-24 06:29] LABS: POSITIVE COUNT NO; POSITIVE DIFFERENTIAL NO; POSITIVE MORPHOLOGY NO
[2017-12-24 06:39] LABS: ALB/GLOB Ratio 0.6 RATIO (0.9-2.4); AST(SGOT) 59 U/L (15-37); Alanine Aminotransfer ALT/SGPT 33 U/L (13-56); Albumin, Serum 2.3 g/dL (3.2-5.0); Alkaline Phosphatase 51 U/L (45-117); Anion Gap 11 (5-15); BUN 8 mg/dL (7-18); BUN/Creat Ratio 20.9 RATIO (10-20); Calcium,Total 8.4 mg/dL (8.5-10.1); Chloride 102 mmol/L (98-107); Creatinine, Serum 0.38 mg/dL (0.55-1.02); EST Glomerular Filtration Rate 181 mL/min (>60); Est Glom Filt Rate - Afr Amer 219 mL/min (>60); Globulin 3.6 g/dL (2.2-4.2); Glucose 105 mg/dL (74-106); Potassium 3.1 mmol/L (3.5-5.1); Protein, Total 5.9 g/dL (6.4-8.2); Sodium Level 136 mmol/L (136-145)
[2017-12-24] MEDS: 0.9% NaCl Peripheral Flush Adult/Peds IV ×3 (08:45→12:37)
[2017-12-24] MEDS: 0.9% Normal Saline 1,000 ML 75 ML IV (08:45)
--- NOTE | 2017-12-24 08:56 | PCM.PN.SRG ---
Patient Problems: Active and Suspected Problems Cecal volvulus (Acute) Subjective: Patient reports she is still passing flatus but she did have some vomiting overnight. She also had some fluid draining from her abdominal wound. - Physical Exam General: Alert, Oriented x3, Cooperative HEENT: LUIS EOMI Oral: Moist Mucosa Lungs: Normal air movement Cardiovascular: Regular rate, Regular Rhythm Abdomen: Soft, - - Patient is serous drainage from her inferior wound Vital Signs Temp Pulse Resp BP Pulse Ox 98.8 F 86 16 135/88 H 97 12/24/17 02:10 12/24/17 02:10 12/24/17 02:10 12/24/17 02:10 12/24/17 02:10 Oxygen Flow Rate (L/min) 2 Oxygen Delivery Method Room Air Weight: 121 lb 14.65 oz Body Mass Index (BMI) 22.3 Intake and Output for Last 24 Hours 12/22/17 12/23/17 12/24/17 23:59 23:59 23:59 Intake Total 2369 / 2369 2061 / 2061 450 / 450 Output Total 700 / 700 410 / 410 625 / 625 Balance 1669 / 1669 1651 / 1651 -175 / -175 Laboratory Tests Past 24 Hrs 12/24/17 12/24/17 05:10 05:10 WBC 3.2 L RBC 3.40 L Hgb 11.6 L Hct 33.6 L MCV 98.8 MCH 34.1 H MCHC 34.5 RDW 12.3 RDW Differential 42.7 Plt Count 150 MPV 10.4 Immature Gran % (Auto) 0.300 Neut % (Auto) 53.9 Lymph % (Auto) 21.5 [place] % (Auto) 23.1 H Eos % (Auto) 0.9 Baso % (Auto) 0.3 Absolute Neuts (auto) 1.7 L Absolute Lymphs (auto) 0.69 L Total Counted Not Reportable Sodium 136 Potassium 3.1 L Chloride 102 Carbon Dioxide 23.0 Anion Gap 11 BUN 8 Creatinine 0.38 L Estim Creat Clear Calc 121.40 Est GFR (MDRD) Af Amer 219 Est GFR (MDRD) Non-Af 181 BUN/Creatinine Ratio 20.9 H Glucose 105 Calcium 8.4 L Total Bilirubin 2.80 H AST 59 H ALT 33 Alkaline Phosphatase 51 Total Protein 5.9 L Albumin 2.3 L Globulin 3.6 Albumin/Globulin Ratio 0.6 L Medical Necessity - Tobacco Use Smoking Status: Never smoker Assessment/Plan All Active Problems Cecal volvulus (Acute) Medical management (Acute) 62-year-old female status post cecal resection 1. Patient had borderline urine output overnight. I will start her back on IV fluids. 2. Patient had vomiting overnight. I am getting a CT scan with oral and IV contrast. 3. Patient had some serous drainage from her wound which has been dry since surgery. I took the tigre out of the bottom 3 cm of her incision and opened the skin incision. There was a paredes of serous fluid that I palpated the lower fascia and it appeared intact. I will see in the CT scan if there is any dehiscence. 4. Hypokalemia-replace 5. If CT scan shows dehiscence I will take her back to the operating room for fascial closure and drain placement to control ascites. Patient has history of cirrhosis and I have started her back on her Spironolactone. Rajendra Wells MD Pager: [facility] [address] [place] [address], [address] [place] [address] Office:
[2017-12-24 09:17] VITALS: BP 141/91; PULSE 99; RESP 18; TEMP 37; O2SAT 98
[2017-12-24] MEDS: Spironolactone 50 MG Tablet 100 MG PO (09:19)
[2017-12-24] MEDS: Enoxaparin 40 MG/0.4 ML Syringe SC (11:44)
[2017-12-24] MEDS: Furosemide 40 MG/4 ML Vial IV (12:37)
[2017-12-24] MEDS: Pantoprazole Sodium 40 MG Tablet PO (12:46)
[2017-12-24 13:16] LABS: International Normalized Ratio 1.3; Prothrombin Time (Protime)PT. 15.9 SECONDS (11.7-14.9)
[2017-12-24 13:17] LABS: Partial Thromboplast Time 33.2 Seconds (24.1-36.2)
--- NOTE | 2017-12-24 13:24 | PCM.PN.BLA ---
Progress Note After opening the patient's abdominal wound I ordered a CT scan. The CT scan revealed ascites but no sign of evisceration or dehiscence. The CT also revealed a very distended small bowel and stomach. There was contrast in the ascending transverse and rectum along with gas. I believe the anastomosis is patent but the patient has developed an ileus. I will stop her IV fluid and give her a dose of diuretic and have a paracentesis performed. I will make the patient n.p.o. and if she develops any nausea she will have an NG tube placed for decompression. The patient vomited shortly after CT scan and emptied most of her stomach. She is having no nausea at this time. Rajendra Wells MD Pager: [facility] [address] [place] [address] [address] [place] [address] Office:
[2017-12-24 16:45] VITALS: BP 124/79; PULSE 99; RESP 16; TEMP 37.1; O2SAT 97
[2017-12-24 18:00] LABS: Anion Gap 14 (5-15); BUN 6 mg/dL (7-18); BUN/Creat Ratio 14.2 RATIO (10-20); Chloride 97 mmol/L (98-107); Creatinine, Serum 0.42 mg/dL (0.55-1.02); EST Glomerular Filtration Rate 160 mL/min (>60); Est Glom Filt Rate - Afr Amer 194 mL/min (>60); Estimated Creatinine Clearance 109.84 ml/min; Glucose 94 mg/dL (74-106); Potassium 3.1 mmol/L (3.5-5.1); Sodium Level 132 mmol/L (136-145)
[2017-12-24 20:32] VITALS: BP 129/84; PULSE 88; RESP 16; TEMP 36.7; O2SAT 98
[2017-12-24] MEDS: Lactulose 20 GM/30 ML UDC 30 GM PO (21:06)
[2017-12-24] MEDS: Furosemide 20 MG/2 ML VIAL IV (21:08)
[2017-12-25 02:54] VITALS: BP 110/75; PULSE 92; RESP 16; TEMP 36.7; O2SAT 95
[2017-12-25] MEDS: Levothyroxine 25 MCG TABLET PO (06:08)
[2017-12-25 06:20] LABS: Absolute Lymphocyte Count 1.12 X10^3/ul (0.83-4.51); Absolute Neutrophil Count 2.2 X10^3/uL (2.0-7.7); Basophil# 0.01 X10^3/uL; Basophil% 0.2 % (0-1); Eosinophil# 0.06 X10^3/uL; Eosinophils% 1.4 % (0-5); Hematocrit 34.1 % (37-47); Hemoglobin 11.7 g/dl (12.0-15.0); Lymphocyte # 1.12 X10^3/ul (4.0); Mean Corp Hgb Conc 34.3 g/gl (32-36); Mean Corpuscular Hgb 33.9 pg (27.0-32.0); Mean Corpuscular Volume 98.8 fL (81-99); Mean Platelet Vol. 10.6 fl (6.2-12.0); Monocyte# 0.92 X10^3/uL; Monocyte% 21.3 % (0-10); Neutrophil % 51.1 % (47-70); Platelet Count 165 K/mm3 (150-450); RBC Distribution Width CV 12.3 % (11.6-14.6); Red Blood Count 3.45 M/mm3 (4.2-5.4); White Blood Count 4.3 K/mm3 (4.4-11.0)
[2017-12-25 06:24] LABS: POSITIVE COUNT NO; POSITIVE DIFFERENTIAL NO; POSITIVE MORPHOLOGY NO
[2017-12-25 06:48] LABS: ALB/GLOB Ratio 0.7 RATIO (0.9-2.4); AST(SGOT) 55 U/L (15-37); Alanine Aminotransfer ALT/SGPT 33 U/L (13-56); Albumin, Serum 2.4 g/dL (3.2-5.0); Alkaline Phosphatase 65 U/L (45-117); Anion Gap 12 (5-15); BUN 8 mg/dL (7-18); BUN/Creat Ratio 19.8 RATIO (10-20); Calcium,Total 8.7 mg/dL (8.5-10.1); Chloride 98 mmol/L (98-107); EST Glomerular Filtration Rate 170 mL/min (>60); Est Glom Filt Rate - Afr Amer 205 mL/min (>60); Estimated Creatinine Clearance 115.33 ml/min; Globulin 3.6 g/dL (2.2-4.2); Glucose 94 mg/dL (74-106); Potassium 3.3 mmol/L (3.5-5.1); Sodium Level 135 mmol/L (136-145)
[2017-12-25 08:20] VITALS: BP 116/81; PULSE 94; RESP 16; TEMP 36.4; O2SAT 96
[2017-12-25] MEDS: 0.9% NaCl Peripheral Flush Adult/Peds IV ×2 (08:30→18:26)
[2017-12-25] MEDS: Docusate Sodium 100 MG Capsule PO (08:30)
[2017-12-25] MEDS: Lactulose 20 GM/30 ML UDC 30 GM PO (08:30)
[2017-12-25] MEDS: Furosemide 40 MG/4 ML Vial IV ×2 (08:30→18:26)
[2017-12-25] MEDS: Spironolactone 50 MG Tablet 100 MG PO (08:30)
[2017-12-25] MEDS: Pantoprazole Sodium 40 MG Tablet PO (08:32)
--- NOTE | 2017-12-25 09:10 | PCM.PN.SRG ---
Patient Problems: Active and Suspected Problems Cecal volvulus (Acute) Subjective: Patient reports she is still passing flatus. The patient had no nausea or vomiting overnight. - Physical Exam General: Alert, Oriented x3, Cooperative Neck: Supple Lungs: Normal air movement Cardiovascular: Regular rate, Regular Rhythm Abdomen: Soft, Non Tender, Distended Vital Signs Temp Pulse Resp BP Pulse Ox 98.0 F 92 16 110/75 95 12/25/17 02:54 12/25/17 02:54 12/25/17 02:54 12/25/17 02:54 12/25/17 02:54 Oxygen Flow Rate (L/min) 2 Oxygen Delivery Method Room Air Weight: 121 lb 14.65 oz Body Mass Index (BMI) 22.3 Intake and Output for Last 24 Hours 12/23/17 12/24/17 12/25/17 23:59 23:59 23:59 Intake Total 2061 / 2061 2400 / 2400 829 / 829 Output Total 410 / 410 3975 / 3975 1400 / 1400 Balance 1651 / 1651 -1575 / -1575 -571 / -571 Laboratory Tests Past 24 Hrs 12/24/17 12/24/17 12/25/17 12:40 16:47 05:05 WBC 4.3 L RBC 3.45 L Hgb 11.7 L Hct 34.1 L MCV 98.8 MCH 33.9 H MCHC 34.3 RDW 12.3 RDW Differential 43.0 Plt Count 165 MPV 10.6 Immature Gran % (Auto) 0.000 Neut % (Auto) 51.1 Lymph % (Auto) 26.0 [place] % (Auto) 21.3 H Eos % (Auto) 1.4 Baso % (Auto) 0.2 Absolute Neuts (auto) 2.2 Absolute Lymphs (auto) 1.12 Total Counted Not Reportable PT 15.9 H INR 1.3 APTT 33.2 Sodium 132 L Potassium 3.1 L Chloride 97 L Carbon Dioxide 21.0 Anion Gap 14 BUN 6 L Creatinine 0.42 L Estim Creat Clear Calc 109.84 Est GFR (MDRD) Af Amer 194 Est GFR (MDRD) Non-Af 160 BUN/Creatinine Ratio 14.2 Glucose 94 Calcium 9.0 Total Bilirubin AST ALT Alkaline Phosphatase Total Protein Albumin Globulin Albumin/Globulin Ratio 12/25/17 05:05 WBC RBC Hgb Hct MCV MCH MCHC RDW RDW Differential Plt Count MPV Immature Gran % (Auto) Neut % (Auto) Lymph % (Auto) [place] % (Auto) Eos % (Auto) Baso % (Auto) Absolute Neuts (auto) Absolute Lymphs (auto) Total Counted PT INR APTT Sodium 135 L Potassium 3.3 L Chloride 98 Carbon Dioxide 25.0 Anion Gap 12 BUN 8 Creatinine 0.40 L Estim Creat Clear Calc 115.33 Est GFR (MDRD) Af Amer 205 Est GFR (MDRD) Non-Af 170 BUN/Creatinine Ratio 19.8 Glucose 94 Calcium 8.7 Total Bilirubin 2.20 H AST 55 H ALT 33 Alkaline Phosphatase 65 Total Protein 6.0 L Albumin 2.4 L Globulin 3.6 Albumin/Globulin Ratio 0.7 L Medical Necessity - Tobacco Use Smoking Status: Never smoker Assessment/Plan All Active Problems Cecal volvulus (Acute) Medical management (Acute) 62-year-old female status post cecal resection 1. Postoperative ileus--patient has distention of small bowel stomach on CT scan and x-ray today. There is gas in the colon on both studies. I believe the patient is ileus of small bowel partially due to ascites. 2. Cirrhosis-I am diuresing the patient. I have stopped her IV fluids and she has been given Lasix yesterday and I will give another dose of Lasix today. I sent her down for paracentesis but there was not enough fluid to tap according to the radiologist I will try to decrease ascites by giving diuresis. 3. Hypokalemia-likely due to Lasix, replaced 4. Await bowel function. If patient gets nauseous she will have NG tube replaced. Patient's abdominal wound is still draining ascites and the packing is changed every time it is saturated. The hope is that this will decrease once the ascites decreases. 5. SCDs, Lovenox, PPI. Home meds have been resumed. Rajendra Wells MD Pager: [facility] [address] [place] [address], [address] [place] [address] Office:
[2017-12-25] MEDS: Enoxaparin 40 MG/0.4 ML Syringe SC (10:48)
[2017-12-25 15:00] VITALS: BP 120/78; PULSE 84; RESP 16; TEMP 36.8; O2SAT 99
[2017-12-25 20:56] VITALS: BP 117/77; PULSE 94; RESP 16; TEMP 36.9; O2SAT 98
[2017-12-25] MEDS: oxyCODONE 5 MG Tablet PO (21:05)
[2017-12-26 03:24] VITALS: BP 111/67; PULSE 88; RESP 14; TEMP 36.7; O2SAT 95
[2017-12-26] MEDS: Levothyroxine 25 MCG TABLET PO (06:45)
[2017-12-26 07:19] LABS: Absolute Neutrophil Count 2.2 X10^3/uL (2.0-7.7); Basophil# 0.02 X10^3/uL; Basophil% 0.5 % (0-1); Eosinophil# 0.07 X10^3/uL; Eosinophils% 1.6 % (0-5); Hematocrit 33.2 % (37-47); Hemoglobin 11.3 g/dl (12.0-15.0); Lymphocyte % 25.8 % (19-41); Mean Corpuscular Hgb 33.8 pg (27.0-32.0); Mean Corpuscular Volume 99.4 fL (81-99); Monocyte# 0.91 X10^3/uL; Monocyte% 21.4 % (0-10); Neutrophil # 2.15 X10^3/uL (2.7-7.7); Neutrophil % 50.5 % (47-70); Platelet Count 164 K/mm3 (150-450); RBC Distribution Width CV 12.6 % (11.6-14.6); RBC Distribution Width SD 44.2 fl (35.1-43.9); Red Blood Count 3.34 M/mm3 (4.2-5.4); White Blood Count 4.3 K/mm3 (4.4-11.0)
[2017-12-26 07:21] LABS: POSITIVE COUNT NO; POSITIVE DIFFERENTIAL NO; POSITIVE MORPHOLOGY NO
[2017-12-26 07:32] LABS: Anion Gap 13 (5-15); BUN 7 mg/dL (7-18); BUN/Creat Ratio 13.4 RATIO (10-20); Calcium,Total 8.2 mg/dL (8.5-10.1); Chloride 98 mmol/L (98-107); Creatinine, Serum 0.52 mg/dL (0.55-1.02); EST Glomerular Filtration Rate 126 mL/min (>60); Est Glom Filt Rate - Afr Amer 152 mL/min (>60); Estimated Creatinine Clearance 88.72 ml/min; Glucose 76 mg/dL (74-106); Potassium 3.2 mmol/L (3.5-5.1); Sodium Level 133 mmol/L (136-145)
[2017-12-26 08:16] VITALS: BP 104/66; PULSE 96; RESP 16; TEMP 36.4; O2SAT 97
[2017-12-26] MEDS: Spironolactone 50 MG Tablet 100 MG PO (08:21)
[2017-12-26] MEDS: Lactulose 20 GM/30 ML UDC 30 GM PO (08:22)
[2017-12-26] MEDS: 0.9% NaCl Peripheral Flush Adult/Peds IV ×2 (08:23→11:35)
--- NOTE | 2017-12-26 08:40 | PCM.PN.SRG ---
Patient Problems: Active and Suspected Problems Cecal volvulus (Acute) Subjective: Patient has been having flatus and diarrhea, denies nausea, KUB improved but still has dilated small bowel with gas in the colon as well, she is still having her dressing need to be changed twice last night - Physical Exam General: Alert, Oriented x3, Cooperative, No apparent distress Lungs: Normal air movement Cardiovascular: Regular rate Abdomen: Soft, Non Tender, Non-Distended, - - Inferior portion the incision is open- good granulation tissue, minimal drainage on dressing. No guarding rebound Extremities: No clubbing, No cyanosis, No edema Vital Signs Temp Pulse Resp BP Pulse Ox 97.5 F L 96 16 104/66 97 12/26/17 08:16 12/26/17 08:16 12/26/17 08:16 12/26/17 08:16 12/26/17 08:16 Oxygen Flow Rate (L/min) 2 Oxygen Delivery Method Room Air Weight: 121 lb 14.65 oz Body Mass Index (BMI) 22.3 Intake and Output for Last 24 Hours 12/24/17 12/25/17 12/26/17 23:59 23:59 23:59 Intake Total 2400 / 2400 1729 / 1729 200 / 200 Output Total 3975 / 3975 3550 / 3550 2300 / 2300 Balance -1575 / -1575 -1821 / -1821 -2100 / -2100 Laboratory Tests Past 24 Hrs 12/26/17 12/26/17 06:20 06:20 WBC 4.3 L RBC 3.34 L Hgb 11.3 L Hct 33.2 L MCV 99.4 H MCH 33.8 H MCHC 34.0 RDW 12.6 RDW Differential 44.2 H Plt Count 164 MPV 10.0 Immature Gran % (Auto) 0.200 Neut % (Auto) 50.5 Lymph % (Auto) 25.8 [place] % (Auto) 21.4 H Eos % (Auto) 1.6 Baso % (Auto) 0.5 Absolute Neuts (auto) 2.2 Absolute Lymphs (auto) 1.10 Total Counted Not Reportable Sodium 133 L Potassium 3.2 L Chloride 98 Carbon Dioxide 22.0 Anion Gap 13 BUN 7 Creatinine 0.52 L Estim Creat Clear Calc 88.72 Est GFR (MDRD) Af Amer 152 Est GFR (MDRD) Non-Af 126 BUN/Creatinine Ratio 13.4 Glucose 76 Calcium 8.2 L Medical Necessity - Tobacco Use Smoking Status: Never smoker Assessment/Plan All Active Problems Cecal volvulus (Acute) Medical management (Acute) 62-year-old female status post cecal resection 1. Postoperative ileus--KUB is improved this morning however there is still a lot of gas in both the small bowel and colon will continue sips and chips today 2. Cirrhosis-continue to diuresis with Lasix 40 mg IV ?1 this morning after she has gotten a couple doses of her KCl. 3. Hypokalemia-likely due to Lasix, replacing this morning and will recheck 4 hours after 40 mEq has been administered 4. Patient has been having gas and diarrhea however the small bowel: Still have quite a bit of gas will await less distention before starting more of a diet and sips and chips. 5. SCDs, Lovenox, PPI. Home meds have been resumed. Maritza Fontanez M.D. Pager: [phone] [facility] [address] [place] [address], [address] [place] [address] Office: [phone]
[2017-12-26 09:48] LABS: Magnesium 1.7 mg/dL (1.6-2.6)
[2017-12-26] MEDS: Pantoprazole Sodium 40 MG Tablet PO (10:21)
[2017-12-26] MEDS: Enoxaparin 40 MG/0.4 ML Syringe SC (10:21)
[2017-12-26] MEDS: Furosemide 40 MG/4 ML Vial IV (11:35)
--- NOTE | 2017-12-26 14:40 | NURSING ---
1430 spoke with lab regarding krider infusing completion.- due to order already entered
[2017-12-26 15:52] VITALS: BP 113/73; PULSE 101; RESP 18; TEMP 36.8; O2SAT 95
[2017-12-26 19:18] LABS: Potassium 3.3 mmol/L (3.5-5.1)
[2017-12-26 21:00] VITALS: BP 112/74; PULSE 97; RESP 16; TEMP 36.7; O2SAT 98
[2017-12-26] MEDS: Docusate Sodium 100 MG Capsule PO (21:05)
[2017-12-26] MEDS: oxyCODONE 5 MG Tablet PO (21:05)
[2017-12-27 03:00] VITALS: BP 101/65; PULSE 94; RESP 16; TEMP 36.8; O2SAT 100
[2017-12-27] MEDS: Levothyroxine 25 MCG TABLET PO (05:38)
[2017-12-27 06:43] LABS: Anion Gap 8 (5-15); BUN 6 mg/dL (7-18); BUN/Creat Ratio 11.2 RATIO (10-20); Chloride 96 mmol/L (98-107); Creatinine, Serum 0.53 mg/dL (0.55-1.02); EST Glomerular Filtration Rate 123 mL/min (>60); Est Glom Filt Rate - Afr Amer 149 mL/min (>60); Estimated Creatinine Clearance 87.04 ml/min; Glucose 100 mg/dL (74-106); Potassium 3.5 mmol/L (3.5-5.1); Sodium Level 132 mmol/L (136-145)
--- NOTE | 2017-12-27 08:40 | PCM.PN.SRG ---
Patient Problems: Active and Suspected Problems Cecal volvulus (Acute) Subjective: Patient has no complaints states she feels hungry has been passing gas and having small bowel movement last night, dressing was changed at 4 PM and 4 AM and at 8 AM with only mild to moderate amount on the 4 x 4 - Physical Exam General: Alert, Oriented x3, Cooperative, No apparent distress Abdomen: Soft, Non Tender - No peritoneal signs, Non-Distended Extremities: No clubbing, No cyanosis, No edema Vital Signs Temp Pulse Resp BP Pulse Ox 98.2 F 94 16 101/65 100 12/27/17 03:00 12/27/17 03:00 12/27/17 03:00 12/27/17 03:00 12/27/17 03:00 Oxygen Flow Rate (L/min) 2 Oxygen Delivery Method Room Air Weight: 121 lb 14.65 oz Body Mass Index (BMI) 22.3 Intake and Output for Last 24 Hours 12/25/17 12/26/17 12/27/17 23:59 23:59 23:59 Intake Total 1729 / 1729 785 / 785 240 / 240 Output Total 3550 / 3550 2500 / 2500 700 / 700 Balance -1821 / -1821 -1715 / -1715 -460 / -460 Laboratory Tests Past 24 Hrs 12/26/17 12/26/17 12/27/17 06:20 18:35 05:30 Sodium 132 L Potassium 3.3 L 3.5 Chloride 96 L Carbon Dioxide 28.0 Anion Gap 8 BUN 6 L Creatinine 0.53 L Estim Creat Clear Calc 87.04 Est GFR (MDRD) Af Amer 149 Est GFR (MDRD) Non-Af 123 BUN/Creatinine Ratio 11.2 Glucose 100 Calcium 8.0 L Magnesium 1.7 Medical Necessity - Tobacco Use Smoking Status: Never smoker Assessment/Plan All Active Problems Cecal volvulus (Acute) Medical management (Acute) 62-year-old female status post cecal resection 1. Postoperative ileus--KUB still showed some dilated small bowel around along with gas in the colon this morning however there is still a lot of gas in both the small bowel and colon will continue sips and chips today-including sips of the Ensure clear 2. Cirrhosis-continue to diuresis with Lasix 40 mg IV ?1 this morning, days 3.5 but will plan on giving additional due to giving Lasix 3. Hypokalemia-within normal limits 4. Patient has been having gas and diarrhea however the small bowel: Still have quite a bit of gas will await less distention before starting more of a diet and sips and chips. 5. SCDs, Lovenox, PPI. Home meds have been resumed. Maritza Fontanez M.D. Pager: [phone] [facility] [address] [place] [address], [facility], [address] [place] [address] Office: [phone]
[2017-12-27 09:09] VITALS: BP 94/58; PULSE 91; RESP 18; TEMP 36.9; O2SAT 98
[2017-12-27] MEDS: Docusate Sodium 100 MG Capsule PO ×2 (09:20→21:08)
[2017-12-27] MEDS: Furosemide 40 MG/4 ML Vial IV (09:20)
[2017-12-27] MEDS: 0.9% NaCl Peripheral Flush Adult/Peds IV (09:20)
[2017-12-27] MEDS: Spironolactone 50 MG Tablet 100 MG PO (09:20)
[2017-12-27] MEDS: Lactulose 20 GM/30 ML UDC 30 GM PO ×2 (09:20→21:07)
[2017-12-27] MEDS: Pantoprazole Sodium 40 MG Tablet PO (09:20)
[2017-12-27] MEDS: Enoxaparin 40 MG/0.4 ML Syringe SC (09:21)
[2017-12-27] MEDS: 0.9% NaCl IVPB Med Flush (250 mL) 15 ML IV ×2 (09:22→11:32)
[2017-12-27 15:30] VITALS: BP 107/57; PULSE 97; RESP 18; TEMP 37.4; O2SAT 96
[2017-12-27 20:20] VITALS: BP 109/71; PULSE 95; RESP 16; TEMP 37.1; O2SAT 98
[2017-12-27] MEDS: oxyCODONE 5 MG Tablet PO (21:08)
[2017-12-28 06:42] LABS: Anion Gap 11 (5-15); BUN 5 mg/dL (7-18); BUN/Creat Ratio 9.4 RATIO (10-20); Calcium,Total 8.2 mg/dL (8.5-10.1); Chloride 98 mmol/L (98-107); Creatinine, Serum 0.53 mg/dL (0.55-1.02); EST Glomerular Filtration Rate 124 mL/min (>60); Est Glom Filt Rate - Afr Amer 150 mL/min (>60); Estimated Creatinine Clearance 87.04 ml/min; Glucose 97 mg/dL (74-106); Potassium 2.9 mmol/L (3.5-5.1); Sodium Level 134 mmol/L (136-145)
[2017-12-28] MEDS: Levothyroxine 25 MCG TABLET PO (06:56)
[2017-12-28 09:00] VITALS: BP 95/61; PULSE 92; RESP 18; TEMP 36.8; O2SAT 100
[2017-12-28] MEDS: Spironolactone 50 MG Tablet 100 MG PO (09:22)
[2017-12-28] MEDS: Docusate Sodium 100 MG Capsule PO (09:23)
[2017-12-28] MEDS: Pantoprazole Sodium 40 MG Tablet PO (09:24)
[2017-12-28] MEDS: Enoxaparin 40 MG/0.4 ML Syringe SC (09:24)
--- NOTE | 2017-12-28 09:34 | PCM.PN.SRG ---
Patient Problems: Active and Suspected Problems Cecal volvulus (Acute) Subjective: The patient says she was having copious flatus and multiple bowel movements yesterday. She has no abdominal pain and she has been tolerating clear liquid diet with no nausea vomiting. The drainage from her abdominal wound has decreased greatly. - Physical Exam General: Alert, Oriented x3, Cooperative Lungs: Normal air movement Cardiovascular: Regular rate, Regular Rhythm Abdomen: Soft, Non Tender, Non-Distended Vital Signs Temp Pulse Resp BP Pulse Ox 98.7 F 95 16 109/71 98 12/27/17 20:20 12/27/17 20:20 12/27/17 20:20 12/27/17 20:20 12/27/17 20:20 Oxygen Flow Rate (L/min) 2 Oxygen Delivery Method Room Air Weight: 121 lb 14.65 oz Body Mass Index (BMI) 22.3 Intake and Output for Last 24 Hours 12/26/17 12/27/17 12/28/17 23:59 23:59 23:59 Intake Total 785 / 785 1250 / 1250 Output Total 2500 / 2500 1700 / 1700 Balance -1715 / -1715 -450 / -450 Laboratory Tests Past 24 Hrs 12/28/17 05:56 Sodium 134 L Potassium 2.9 L Chloride 98 Carbon Dioxide 25.0 Anion Gap 11 BUN 5 L Creatinine 0.53 L Estim Creat Clear Calc 87.04 Est GFR (MDRD) Af Amer 150 Est GFR (MDRD) Non-Af 124 BUN/Creatinine Ratio 9.4 L Glucose 97 Calcium 8.2 L Medical Necessity - Tobacco Use Smoking Status: Never smoker Assessment/Plan All Active Problems Cecal volvulus (Acute) Medical management (Acute) 62-year-old female status post ileocolic resection 1. The patient's postoperative course has been complicated by ascites from her cirrhosis as well as a postoperative ileus. The patient is having copious flatus as well as bowel movements. I will advance her to a transitional diet and if she tolerates that she can be discharged home. 2. Patient has been aggressively diuresed over the last few days and her wound has stopped draining. I plan to perform delayed closure later this afternoon as long as the drainage stays minimal off Lasix. Continue spironolactone. Patient was hypokalemic and this will be replaced p.o. Rajendra Wells MD Pager: [facility] [address] [place] [address], [address] [place] [address] Office:
--- NOTE | 2017-12-28 09:56 | CASEMGMT ---
Social Work Note Pt is listed as self-pay. SW placed a call to [facility] and spoke with Crystal. Crystal states that pt was seen by [facility] for self-pay status and pt filled out Medicaid application and [facility] submitted application to [employer] and pt filled out [employer] application. Angelina Ocasio SUMMER COUNSELOR, MATTRESS RENOVATOR
--- NOTE | 2017-12-28 15:57 | PN_ITS ---
Progress Note The patient reports she has been doing well all day. She is having multiple episodes of flatus with bowel movement. She is tolerating a normal diet with no nausea or vomiting. I prepped her abdominal wound with Betadine and injected the wound with lidocaine and closed it with 3 interrupted 4-0 nylon sutures. This was loosely closed in order to drain if necessary. I also removed every other staple from her incision. The patient would like to go home and she is having no abdominal pain. I warned her of the possibility of ileus returning. I explained that if any problems occur that she should call or return to the emergency room. I will see her for follow-up in 1 week. Rajendra Wells MD Pager: [facility] [address] [place] [address], [address] [place] [address] Office:
--- NOTE | 2017-12-28 15:59 | DCINST_ITS ---
Discharge Diet: Light diet - advance as tolerated May shower in (days): 1 Lifting Restrictions: 10 pounds for 4 weeks Call your doctor if your incision/area has: Continuous Slow Oozing, Sudden Increased Bleeding, Increased Pain/ Swelling, Increased Redness, Foul Smelling Discharge, Swelling at the incision site Call your doctor if you observe: Fever of 101 or Higher Suture Line Care: Avoid Pulling/Pushing, Avoid Pinching/Bending Change Dressing in (Days):: 1 - change dressing daily and as needed Allergies/Adverse Reactions: Allergies No Known Allergies Allergy (Verified 12/19/17 13:12) Medications to take at Discharge Folic Acid 1 mg PO DAILY@0800 08/01/15 Multivitamins,Ther W-Minerals [Multivitamin With Minerals] 1 tablet PO DAILYCM tablet 08/04/15 Levothyroxine [Synthroid] 25 mcg PO DAILY #30 tablet 08/15/15 Lactulose [Chronulac] 30 gm PO BID 09/22/16 Vitamin B Complex 1 each PO DAILY 09/22/16 Spironolactone [Aldactone] 100 mg PO DAILY 12/19/17 Ensure Enlive 120 ml PO 4X/DAY liquid 12/28/17 Oxycodone [Oxyir] 5 - 10 mg PO Q6H PRN PRN 7 Days #20 tablet 12/28/17 The following prescriptions were given: Oxycodone [Oxyir] 5 - 10 mg PO Q6H PRN PRN 7 Days #20 tablet PRN Reason: Severe Pain (6-01/27) Primary Care Physician: Trevor Morales MD [Primary Care Provider] - Test Results: Test results from this visit will be discussed in further detail at your follow- up appointment, if applicable. Please Follow Up With: Rajendra Wells MD When: Please call to schedule 1 week follow up appointment. [phone]
--- NOTE | 2017-12-29 16:11 | CASEMGMT ---
RN CM Discharge Follow-up Phone Call: CARITO: Anh Strata: 3 Call Date: 12/29/17 Discharge Date: 12/28/17 Time of Call: 1610 Duration: 1 min Admitting Diagnosis: Cecal Volvulus RN ILIR attempted to complete follow-up phone call after recent hospitalization. No answer, voice message left with return contact information.
--- NOTE | 2017-12-31 09:04 | DS.PCM_ITS ---
Discharge Date and Diagnosis Date of Admission: 12/19/17 Date of Discharge: 12/28/17 - Primary Discharge Diagnosis Cecal volvulus Cirrhosis of the liver Postoperative ileus Hypokalemia - Secondary Discharge Diagnosis Chronic Problems Clavicular fracture (Chronic) Left wrist fracture (Chronic) Alcohol abuse (Chronic) Subarachnoid hemorrhage following injury (Chronic) Hospital Course and Treatment Imaging Results: Clinical Impression(s) from Imaging Studies Abdomen/Pelvis CT 12/19/17 14:32 IMPRESSION: 1. Cecal volvulus with high-grade obstruction. No evidence of perforation. 2. Cholelithiasis. No evidence of acute cholecystitis. 3. Heterogeneous posterior segment of the liver without focal lesion. Question perfusion abnormality. Dr. Larsen discussed the critical findings with Dr. Jasso at 4:52 PM. N.B. : The above information has been verbally conveyed by Hazel Larsen MD to Sruthi Medrano, [facility] Physician, on 12/19/2017 16:53:45 (ET). Electronically Signed: Hazel Larsen MD at 16:53 EDT Tel , Service support , KUB X-Ray 12/19/17 17:30 IMPRESSION: 1. Nasogastric tube in the stomach. 2. Cecal volvulus with proximal bowel obstruction. Electronically Signed: Hazel Larsen MD at 18:00 EDT Tel , Service support , Abdomen Ultrasound 12/23/17 09:25 IMPRESSION: Small amount of fluid seen in the lower quadrants. Not enough fluid for paracentesis. Electronically Signed: Irineo Baptiste MD at 13:07 EDT Tel [phone], Service support , Abdomen/Pelvis CT 12/24/17 08:19 IMPRESSION: Dilated stomach. Dilatated small bowel loops down to the anastomotic site of the right hemicolectomy. Ascites. Electronically Signed: Irineo Baptiste MD at 11:31 EDT Tel [phone], Service support , Abdomen Ultrasound 12/24/17 12:18 IMPRESSION: Not enough fluid present for a safe paracentesis. Electronically Signed: Irineo Baptiste MD at 7:53 EDT Tel [phone], Service support , KUB X-Ray 12/25/17 05:15 IMPRESSION: 1. Gas-filled distended stomach. 2. Dilated loops of the small intestine with a nondistended colon again demonstrated consistent with mildly improved small bowel obstruction. Electronically Signed: Bulmaro Mon MD at 15:18 EDT Tel , Service support , KUB X-Ray 12/26/17 06:35 IMPRESSION: Gaseous distention of the bowel with gas in the rectum again demonstrated, minimally increased since the yesterday's exam, suggestive of an adynamic ileus. Electronically Signed: Bulmaro Mon MD at 19:57 EDT Tel , Service support , KUB X-Ray 12/27/17 05:50 IMPRESSION: As above Electronically Signed: Eduardo Vasquez DO at 8:43 EDT Tel , Service support , Operations: colectomy Procedures: None Summary of Care Provided: The patient is a 62 year old F presented to the emergency room and CT scan showed an its of cecal volvulus. The patient was emergently taken for exploratory laparotomy and right hemicolectomy. The patient's postoperative course was complicated by her cirrhosis with development of ascites and postoperative ileus. After several days of diuresis the patient was restarted on a diet and tolerated this diet well. The patient's wound had to be opened at the inferior portion due to draining of ascites. By the end of her hospitalization the wound drainage had decreased and the wound was reclosed. Patient was discharged home in stable condition on a soft diet in order to follow-up in 1 week for staple removal. Discharge Diet: Light diet - advance as tolerated May shower in (days): 1 Call your doctor if your incision/area has: Continuous Slow Oozing, Sudden Increased Bleeding, Increased Pain/ Swelling, Increased Redness, Foul Smelling Discharge, Swelling at the incision site Call your doctor if you observe: Fever of 101 or Higher Suture Line Care: Avoid Pulling/Pushing, Avoid Pinching/Bending Change Dressing in (Days):: 1 - change dressing daily and as needed Home Medications: Medications to take at Discharge Folic Acid 1 mg PO DAILY@0800 08/01/15 Multivitamins,Ther W-Minerals [Multivitamin With Minerals] 1 tablet PO DAILYCM tablet 08/04/15 Levothyroxine [Synthroid] 25 mcg PO DAILY #30 tablet 08/15/15 Lactulose [Chronulac] 30 gm PO BID 09/22/16 Vitamin B Complex 1 each PO DAILY 09/22/16 Spironolactone [Aldactone] 100 mg PO DAILY 12/19/17 Ensure Enlive 120 ml PO 4X/DAY liquid 12/28/17 Oxycodone [Oxyir] 5 - 10 mg PO Q6H PRN PRN 7 Days #20 tablet 12/28/17 Following Prescrptions Were Given to Patient: Oxycodone [Oxyir] 5 - 10 mg PO Q6H PRN PRN 7 Days #20 tablet PRN Reason: Severe Pain (-01/27) Primary Care Physician: Trevor Morales MD [Primary Care Provider] - Please Follow Up With: Rajendra Wells MD When: Please call to schedule 1 week follow up appointment. [phone] Medical Necessity - Tobacco Use Smoking Status: Never smoker Meaningful Use Info Meaningful Use Diagnoses (Choose all that apply): None applicable
== END 2017-12-28 17:25 | disposition home or self-care (01) | DRG 330 ==
LOC: ED 14:48 → SDC 17:46 → AC 17:47 → MS3 21:33 → SDC 21:33
PROVIDERS: Surgery; Admitting Provider Surgery; Emergency Provider Emergency Medicine; Family Provider Family Medicine; PCP Family Medicine; Visit Provider Surgery
PROC: 0DTF0ZZ Resection of Right Large Intestine, Open Approach (ICD-10-PCS; CPT 49000; principal; 2017-12-19 19:00)
DX: K56.2 Volvulus (principal); R18.8 Other ascites; K91.89 Other postprocedural complications and disorders of digestive system; K74.60 Unspecified cirrhosis of liver; K56.7 Ileus, unspecified; E87.6 Hypokalemia
CPT/HCPCS: 36415; 74018; 74177; 76705; 80048; 80053; 80076; 81001; 83605; 83735; 84100; 84132; 85025; 85610; 85730; 88307; 97802; 99284; J7030; J7040; J7050; Q9967; A4216; J1940; J2405

== ENCOUNTER 2018-08-09 17:35 | Observation (INO) | payer MEDICAID, SELFPAY ==
[2018-08-09 17:36] VITALS: BP 139/90; PULSE 104; RESP 16; TEMP 36.7; O2SAT 97; BMI 20.5
--- NOTE | 2018-08-09 18:25 | CT_ITS ---
STUDY: CT ABDOMEN AND PELVIS WITH CONTRAST REASON FOR EXAM: Female, 63 years old. RADIATION DOSAGE (If Supplied By Facility): CTDIvol = ( 8.61 ) mGy, DLP = ( 332.96 ) mGycm TECHNIQUE: Transaxial images were obtained from the dome of the diaphragm to the symphysis pubis without oral contrast. 100 IV/Oral Isovue 300 was administered. Sagittal and coronal images were reconstructed. Individualized dose optimization techniques were used for this CT. COMPARISON: CT abdomen and pelvis 12/24/2017. FINDINGS: The visualized lung bases are unremarkable. The visualized portions of the heart are within normal limits. There is minimal fluid adjacent to the right lobe of the liver significantly improved when compared to prior exam. There is mild nodularity of the surface of the liver. There are multiple gallstones. Normal spleen. There is focal 4 x 8 mm hypodensity within the body of the pancreas. There is stable mild stranding in the mesentery Normal bilateral adrenal glands. Normal right kidney. Normal left kidney. Normal visualized stomach. Normal small intestine. There is surgical staple line adjacent to the cecum. There is mild stranding in the fat likely postsurgical. Normal abdominal aorta. Normal inferior vena cava. Normal retroperitoneum. Normal urinary bladder. Normal abdominal wall. There is mild compression deformity of T11 likely degenerative. There is no change from prior. CT/Abdomen/Pelvis WITH Contrast IMPRESSION: Minimal perihepatic fluid significantly improved when compared to prior exam Mild nodularity to the surface of the right lobe of the liver liver likely hepatic cirrhosis, less likely postsurgical or traumatic Cholelithiasis Previous surgery with surgical staple line adjacent to the cecum 4 x 8 mm focal hypodensity within the body of the pancreas likely focal dilation of the pancreatic duct less likely a cystic lesion. Multiphase MRI abdomen with and without contrast MRCP would be recommended to further evaluate Electronically Signed: Royce Fermin, at 20:50 EDT Tel , Service support ,
--- NOTE | 2018-08-09 18:27 | ED.DCSUM_ITS ---
- ER Visit Summary Date of Service: 08/09/18 Chief Complaint: Abdominal pain History of Present Illness: The patient is a 63 F waxing and waning generalized abdominal pain for 5 days. Nausea without vomiting. History of alcoholic cirrhosis, currently not drinking. History of cecal volvulus back in December reports similar symptoms. Last bowel movement 5 days ago. Does complain of dysuria. Reports does have some flatus however decreased. Pain is currently mild out of 4. No fever, chills, sweats. Physical Examination: General: Alert and oriented ?3, no acute distress HEENT: Normocephalic, atraumatic. Moist mucosa membranes Neck: supple, nontender. Cardiovascular: Regular rate 104 and rhythm, no murmurs Respiratory: Normal breath sounds, symmetric, no distress Abdomen: Soft, nontender, nondistended, no guarding or rebound, positive bowel sounds in all 4 quadrants. Extremities: Nontender, no edema, pulses intact ?4 Neuro: no focal neurological deficits. Test Results: White count 4.3 hemoglobin 13.5. Potassium 3.9. Sodium 129. Creatinine 1.78. Lipase 192. Total bili 2.2. Alk phos 180, ALT 101, AST 211. Urine with leukocytes. CT abdomen pelvis with oral and IV contrast per radiology 4 x 8 mm hypodensity pancreas concerning for dilated focal pancreatic duct, cholelithiasis noted. Emergency Department Course and Treatment:Patient nonsurgical abdomen, bowel sounds were present. History of cecal volvulus in December. Workup initiated. Labs slight transaminitis, CT scan notes focal dilation concerning for pancreatic duct dilatation cholelithiasis. I spoke with Dr. Fontanez, we did e valuate in the ED. She evaluate the imaging, reports could not see clearly herself. Reports surgically there would be no intervention at this time. She requests admission to medicine service for the MRCP. Patient given Zofran and fluids declined any medicines. On reevaluation her symptoms were improved. I with abnormal CT and transaminitis, I do feel she would benefit from the image study as an inpatient. I spoke with Dr. Mcmahon who agrees to admit. Treatment Plan: [] Disposition: Admission Impression: 1. Abdominal pain 2. Transaminitis 3. Abnormal CT This note was generated with Palmap dictation software. It may contain incorrect words, spelling, and punctuation that were not noted in review of the chart hank or to signing ED Disposition - Plan for ED Patient: Disposition: Acute Care Hospital [facility] Diagnosis: Abdominal pain, Transaminitis, Abnormal CT of the abdomen Referrals: Trevor Morales MD [Primary Care Provider] -
[2018-08-09] MEDS: Ondansetron 4 MG/2 ML Vial IV (18:44)
[2018-08-09] MEDS: 0.9% Normal Saline 1,000 ML 125 ML IV (18:44)
[2018-08-09 18:51] LABS: Absolute Lymphocyte Count 1.12 X10^3/ul (0.83-4.51); Absolute Neutrophil Count 2.7 X10^3/uL (2.0-7.7); Basophil# 0.02 X10^3/uL; Basophil% 0.5 % (0-1); Eosinophil# 0.03 X10^3/uL; Eosinophils% 0.7 % (0-5); Hematocrit 38.7 % (37-47); Hemoglobin 13.5 g/dl (12.0-15.0); Lymphocyte # 1.12 X10^3/ul (4.0); Mean Corp Hgb Conc 34.9 g/gl (32-36); Mean Corpuscular Hgb 33.5 pg (27.0-32.0); Monocyte# 0.43 X10^3/uL; Neutrophil % 62.6 % (47-70); POSITIVE COUNT NO; POSITIVE DIFFERENTIAL NO; POSITIVE MORPHOLOGY NO; Platelet Count 91 K/mm3 (150-450); RBC Distribution Width CV 12.6 % (11.6-14.6); RBC Distribution Width SD 43.5 fl (35.1-43.9); Red Blood Count 4.03 M/mm3 (4.2-5.4); White Blood Count 4.3 K/mm3 (4.4-11.0)
[2018-08-09 19:07] LABS: AST(SGOT) 211 U/L (15-37); Alanine Aminotransfer ALT/SGPT 101 U/L (13-56); Albumin, Serum 4.6 g/dL (3.2-5.0); Alkaline Phosphatase 180 U/L (45-117); Anion Gap 10 (5-15); BUN 10 mg/dL (7-18); BUN/Creat Ratio 13.5 RATIO (10-20); Calcium,Total 9.8 mg/dL (8.5-10.1); Chloride 94 mmol/L (98-107); Creatinine, Serum 0.74 mg/dL (0.55-1.02); EST Glomerular Filtration Rate 84 mL/min (>60); Est Glom Filt Rate - Afr Amer 101 mL/min (>60); Estimated Creatinine Clearance 61.54 ml/min; Globulin 4.4 g/dL (2.2-4.2); Glucose 90 mg/dL (74-106); Lipase 192 U/L (73-393); Potassium 3.9 mmol/L (3.5-5.1); Sodium Level 129 mmol/L (136-145)
[2018-08-09 19:41] LABS: Bacteria 0 SEEN /hpf (None Seen); Mucous, Urine 0 SEEN /hpf (<or=2+); Red Blood Cells-Urine 0 SEEN /hpf (0-5)
[2018-08-09 19:44] LABS: Color, Urine Yellow (Yellow); Glucose, Dipstick Normal (Normal); Ketone-Dipstick Negative (Negative); Leukocyte Esterase-Dipstick 100 /ul (Negative); Nitrite-Dipstick Negative (Negative); Occult Blood-Urine Negative /ul (Negative); Protein-Dipstick Negative (Negative); Specific Gravity, Urine 1.005 (1.002-1.030); Urine Bilirubin Dipstick Negative (Negative); Urine Clarity Clear (Clear); Urine Urobilinogen 1 mg/dl (Normal); Urine pH 6.5 (5.0 - 8.0)
[2018-08-09 20:56] LABS: Squamous Epithelial Cells - UA 0-5 SEEN /hpf (5-10); White Blood Cells 5-10 SEEN /hpf (0-5)
[2018-08-09 21:15] VITALS: BP 146/91; PULSE 107; RESP 16; O2SAT 99
--- NOTE | 2018-08-09 22:16 | PCM.CONS.GEN ---
Reason for Consult Date of Consultation: 08/09/18 History of Present Illness: The patient is a 63 year old F presented to the ER due to epigastric or lower abdominal pain for the last for 5 days which would come and go and last for about an hour and be away from an hour. Patient states she has been able to eat normally but she has had some nausea and did try to throw up however only had air. Patient has not had a bowel movement for the last 4-5 days. She normally goes a couple times a day. Patient also has a past medical history of her cirrhosis and is on lactulose and she has been taking this. Patient last followed up with GI Dr. Beard over a year ago as he does not take her insurance any longer she has not seen a GI doctor for her liver recently. Patient has CT abdomen pelvis which questions whether there is focal dilation of the pancreatic duct or a pancreatic cyst. Recommended an MRCP. Patient's liver functions are elevated total bili is 2.2 alk phos and ALT are in the low 100s. Past Medical History Past Medical History (Chronic Problems): Chronic Problems (Last Updated 08/09/18 @ 22:58 by Maye Mcmahon MD) History of partial colectomy (Chronic) 12/19/17 Hx of hysterectomy (Chronic) 2004 Cecal volvulus (Chronic) Clavicular fracture (Chronic) Left wrist fracture (Chronic) Alcohol abuse (Chronic) Subarachnoid hemorrhage following injury (Chronic) Medical History: Medical History (Last Updated 08/09/18 @ 22:58 by Maye Mcmahon MD) Hx of hysterectomy (Chronic) Z90.710 2005 Cecal volvulus (Chronic) K56.2 Clavicular fracture (Chronic) S42.009A Left wrist fracture (Chronic) S62.102A Alcohol abuse (Chronic) F10.10 Subarachnoid hemorrhage following injury (Chronic) Allergies No Known Allergies Allergy (Verified 01/04/18 10:30) Home Medications: Ambulatory Orders Medication Instructions Recorded RX: Folic Acid 1 mg PO DAILY@0800 08/01/15 RX: Lactulose [Chronulac] 30 gm PO BID 09/22/16 RX: Vitamin B Complex 1 ea PO DAILY 09/22/16 RX: Spironolactone [Aldactone] 100 mg PO DAILY 12/19/17 Pantoprazole Sodium [Protonix] 40 mg PO DAILY 08/10/18 RX: Levothyroxine [Synthroid] 25 mcg PO DAILY 08/10/18 RX: Multivitamins,Ther W-Minerals 1 tablet PO DAILYCM 08/10/18 [Multivitamin With Minerals] Surgical History: Surgical History (Last Updated 08/09/18 @ 22:58 by Maye Mcmahon MD) History of partial colectomy (Chronic) Z90.49 12/19/17 Surgical History: hysterectomy, tonsillectomy, - - . Psychiatric History: Depression BEHAVIOR SPECIALIST History: No pertinent BEHAVIOR SPECIALIST history Smoking Status: Never smoker - *Family History Maternal History Items: No pertinent history Paternal History Items: Heart Disease Review of Systems Constitutional: Denies: Anorexia, Fever Eyes: Denies: Blurred vision HEENT: Denies: Difficulty Swallowing Cardiovascular: Denies: Chest Pain Respiratory: Denies: Cough Gastrointestinal: Reports: Abdominal Pain, Constipation. Denies: Vomiting Genitourinary: Denies: Dysuria Musculoskeletal: Denies: Joint Tenderness Skin: Denies: Rash Neurological: Denies: Confusion Psychiatric: Denies: Depression Hematologic/ Lymphatic: Denies: Easy Bleeding Patient Problems: Active and Suspected Problems (Last Updated 08/09/18 @ 22:58 by Maye Mcmahon MD) Abdominal pain (Acute) Transaminitis (Acute) Abnormal CT of the abdomen (Acute) - Physical Exam General: Alert, Oriented x3, Cooperative, No apparent distress HEENT: Atraumatic Lungs: Normal air movement Cardiovascular: Regular rate Abdomen: Soft, Non Tender, Non-Distended, - - Incision well-healed, no peritoneal signs Extremities: No clubbing, No cyanosis, No edema Vital Signs Temp Pulse Resp BP Pulse Ox 98.1 F 107 H 16 146/91 H 99 08/09/18 17:36 08/09/18 21:15 08/09/18 21:15 08/09/18 21:15 08/09/18 21:15 Oxygen Delivery Method Room Air Weight: 112 lb Body Mass Index (BMI) 20.5 Laboratory Tests Past 24 Hrs 08/09/18 08/09/18 08/09/18 18:37 18:37 19:35 WBC 4.3 L RBC 4.03 L Hgb 13.5 Hct 38.7 MCV 96.0 MCH 33.5 H MCHC 34.9 RDW 12.6 RDW Differential 43.5 Plt Count 91 L MPV 10.0 Immature Gran % (Auto) 0.200 Neut % (Auto) 62.6 Lymph % (Auto) 26.0 [place] % (Auto) 10.0 Eos % (Auto) 0.7 Baso % (Auto) 0.5 Absolute Neuts (auto) 2.7 Absolute Lymphs (auto) 1.12 Total Counted Not Reportable Sodium 129 L Potassium 3.9 Chloride 94 L Carbon Dioxide 25.0 Anion Gap 10 BUN 10 Creatinine 0.74 Estim Creat Clear Calc 61.54 Est GFR (MDRD) Af Amer 101 Est GFR (MDRD) Non-Af 84 BUN/Creatinine Ratio 13.5 Glucose 90 Calcium 9.8 Total Bilirubin 2.20 H AST 211 H ALT 101 H Alkaline Phosphatase 180 H Total Protein 9.0 H Albumin 4.6 Globulin 4.4 H Albumin/Globulin Ratio 1.0 Lipase 192 Urine Color Yellow Urine Clarity Clear Urine pH 6.5 Ur Specific [place] 1.005 Urine Protein Negative Urine Glucose (UA) Normal Urine Ketones Negative Urine Occult Blood Negative Urine Nitrite Negative Urine Bilirubin Negative Urine Urobilinogen 1 H Ur Leukocyte Esterase 100 H Urine RBC 0 SEEN Urine WBC 5-10 SEEN Ur Squamous Epith Cells 0-5 SEEN Urine Bacteria 0 SEEN Urine Mucus 0 SEEN Assessment/Plan All Active Problems (Last Updated 08/09/18 @ 22:58 by Maye Mcmahon MD) Abdominal pain (Acute) Transaminitis (Acute) Abnormal CT of the abdomen (Acute) 63-year-old female with intermittent abdominal pain, constipation, history of cirrhosis, CT showing up possible pancreatic duct dilation versus cyst 1. No acute surgical issues. Patient's abdominal pain could be from her cirrhosis or from constipation recommend bowel regimen including lactulose. Discussed with patient that she could get the MRCP to better look at the pancreas; however I doubt this would be the cause of her abdominal pain but if there was dilation of the duct and it were to be from possible gallstone she would need to be transferred for an ERCP however I think her liver functions are likely due to her history of cirrhosis and not gallstones. Patient does need to find a GI doctor for follow-up for her cirrhosis Maritza Fontanez M.D. Pager: [phone] [facility] [address] [place] [address], [facility], [address] [place] [id number] Office: [phone] . Code Visit Inpatient E&M: 26493 Init Hosp L2
--- NOTE | 2018-08-09 22:20 | CON.PCM_ITS ---
Reason for Consult Date of Consultation: 08/09/18 History of Present Illness: The patient is a 63 year old F presented to the ER due to epigastric or lower abdominal pain for the last for 5 days which would come and go and last for about an hour and be away from an hour. Patient states she has been able to eat normally but she has had some nausea and did try to throw up however only had air. Patient has not had a bowel movement for the last 4-5 days. She normally goes a couple times a day. Patient also has a past medical history of her cirrhosis and is on lactulose and she has been taking this. Patient last followed up with GI Dr. Beard over a year ago as he does not take her insurance any longer she has not seen a GI doctor for her liver recently. Patient has CT abdomen pelvis which questions whether there is focal dilation of the pancreatic duct or a pancreatic cyst. Recommended an MRCP. Patient's liver functions are elevated total bili is 2.2 alk phos and ALT are in the low 100s. Past Medical History Past Medical History (Chronic Problems): Chronic Problems (Last Updated 08/09/18 @ 22:58 by Maye Mcmahon MD) History of partial colectomy (Chronic) 12/19/17 Hx of hysterectomy (Chronic) 2004 Cecal volvulus (Chronic) Clavicular fracture (Chronic) Left wrist fracture (Chronic) Alcohol abuse (Chronic) Subarachnoid hemorrhage following injury (Chronic) Medical History: Medical History (Last Updated 08/09/18 @ 22:58 by Maye Mcmahon MD) Hx of hysterectomy (Chronic) Z90.710 2005 Cecal volvulus (Chronic) K56.2 Clavicular fracture (Chronic) S42.009A Left wrist fracture (Chronic) S62.102A Alcohol abuse (Chronic) F10.10 Subarachnoid hemorrhage following injury (Chronic) Allergies No Known Allergies Allergy (Verified 01/04/18 10:30) Home Medications: Ambulatory Orders Medication Instructions Recorded RX: Folic Acid 1 mg PO DAILY@0800 08/01/15 RX: Lactulose [Chronulac] 30 gm PO BID 09/22/16 RX: Vitamin B Complex 1 ea PO DAILY 09/22/16 RX: Spironolactone [Aldactone] 100 mg PO DAILY 12/19/17 Pantoprazole Sodium [Protonix] 40 mg PO DAILY 08/10/18 RX: Levothyroxine [Synthroid] 25 mcg PO DAILY 08/10/18 RX: Multivitamins,Ther W-Minerals 1 tablet PO DAILYCM 08/10/18 [Multivitamin With Minerals] Surgical History: Surgical History (Last Updated 08/09/18 @ 22:58 by Maye Mcmahon MD) History of partial colectomy (Chronic) Z90.49 12/19/17 Surgical History: hysterectomy, tonsillectomy, - - . Psychiatric History: Depression HORSE SHOW JUDGE History: No pertinent HORSE SHOW JUDGE history Smoking Status: Never smoker - *Family History Maternal History Items: No pertinent history Paternal History Items: Heart Disease Review of Systems Constitutional: Denies: Anorexia, Fever Eyes: Denies: Blurred vision HEENT: Denies: Difficulty Swallowing Cardiovascular: Denies: Chest Pain Respiratory: Denies: Cough Gastrointestinal: Reports: Abdominal Pain, Constipation. Denies: Vomiting Genitourinary: Denies: Dysuria Musculoskeletal: Denies: Joint Tenderness Skin: Denies: Rash Neurological: Denies: Confusion Psychiatric: Denies: Depression Hematologic/ Lymphatic: Denies: Easy Bleeding Patient Problems: Active and Suspected Problems (Last Updated 08/09/18 @ 22:58 by Maye Mcmahon MD) Abdominal pain (Acute) Transaminitis (Acute) Abnormal CT of the abdomen (Acute) - Physical Exam General: Alert, Oriented x3, Cooperative, No apparent distress HEENT: Atraumatic Lungs: Normal air movement Cardiovascular: Regular rate Abdomen: Soft, Non Tender, Non-Distended, - - Incision well-healed, no peritoneal signs Extremities: No clubbing, No cyanosis, No edema Vital Signs Temp Pulse Resp BP Pulse Ox 98.1 F 107 H 16 146/91 H 99 08/09/18 17:36 08/09/18 21:15 08/09/18 21:15 08/09/18 21:15 08/09/18 21:15 Oxygen Delivery Method Room Air Weight: 112 lb Body Mass Index (BMI) 20.5 Laboratory Tests Past 24 Hrs 08/09/18 08/09/18 08/09/18 18:37 18:37 19:35 WBC 4.3 L RBC 4.03 L Hgb 13.5 Hct 38.7 MCV 96.0 MCH 33.5 H MCHC 34.9 RDW 12.6 RDW Differential 43.5 Plt Count 91 L MPV 10.0 Immature Gran % (Auto) 0.200 Neut % (Auto) 62.6 Lymph % (Auto) 26.0 [place] % (Auto) 10.0 Eos % (Auto) 0.7 Baso % (Auto) 0.5 Absolute Neuts (auto) 2.7 Absolute Lymphs (auto) 1.12 Total Counted Not Reportable Sodium 129 L Potassium 3.9 Chloride 94 L Carbon Dioxide 25.0 Anion Gap 10 BUN 10 Creatinine 0.74 Estim Creat Clear Calc 61.54 Est GFR (MDRD) Af Amer 101 Est GFR (MDRD) Non-Af 84 BUN/Creatinine Ratio 13.5 Glucose 90 Calcium 9.8 Total Bilirubin 2.20 H AST 211 H ALT 101 H Alkaline Phosphatase 180 H Total Protein 9.0 H Albumin 4.6 Globulin 4.4 H Albumin/Globulin Ratio 1.0 Lipase 192 Urine Color Yellow Urine Clarity Clear Urine pH 6.5 Ur Specific [place] 1.005 Urine Protein Negative Urine Glucose (UA) Normal Urine Ketones Negative Urine Occult Blood Negative Urine Nitrite Negative Urine Bilirubin Negative Urine Urobilinogen 1 H Ur Leukocyte Esterase 100 H Urine RBC 0 SEEN Urine WBC 5-10 SEEN Ur Squamous Epith Cells 0-5 SEEN Urine Bacteria 0 SEEN Urine Mucus 0 SEEN Assessment/Plan All Active Problems (Last Updated 08/09/18 @ 22:58 by Maye Mcmahon MD) Abdominal pain (Acute) Transaminitis (Acute) Abnormal CT of the abdomen (Acute) 63-year-old female with intermittent abdominal pain, constipation, history of cirrhosis, CT showing up possible pancreatic duct dilation versus cyst 1. No acute surgical issues. Patient's abdominal pain could be from her cirrhosis or from constipation recommend bowel regimen including lactulose. Discussed with patient that she could get the MRCP to better look at the pancreas; however I doubt this would be the cause of her abdominal pain but if there was dilation of the duct and it were to be from possible gallstone she would need to be transferred for an ERCP however I think her liver functions are likely due to her history of cirrhosis and not gallstones. Patient does need to find a GI doctor for follow-up for her cirrhosis Maritza Fontanez M.D. Pager: [phone] [facility] [address] [place] [address], [facility], [address] [place] [id number] Office: [phone] . Code Visit Inpatient E&M: 65006 Init Hosp L2
--- NOTE | 2018-08-09 23:04 | PCM.HP.STD ---
Problem List (1) History of partial colectomy Status: Chronic Comment: 12/19/17 (2) Cecal volvulus Status: Chronic (3) Alcohol abuse Status: Chronic (4) Subarachnoid hemorrhage following injury Status: Chronic Qualifiers: Encounter type: sequela Loss of consciousness presence/duration: without LOC Qualified Code(s): S06.6X0S - Traumatic subarachnoid hemorrhage without loss of consciousness, sequela History of Present Illness Date of Admission: 08/09/18 Chief Complaint: Abdominal pain. The patient is a 63 year old F with past medical history as mentioned above presented to the emergency room because of abdominal pain. Her symptoms started on 5 days ago with abdominal pain, just above the umbilicus as well as epigastric in location, dull aching pain, 8 out of 10 in severity, nonradiating, intermittent, associated with mild nausea without vomiting and without aggravating or relieving factors. She denied fever or chills. She denied constipation or diarrhea. She denies urinary symptoms. In the emergency department, she was afebrile, blood pressure and heart rate were stable and she was maintaining pulse ox on room air. Routine blood work was remarkable for mild leukopenia, thrombocytopenia, sodium of 129. LFT revealed total bilirubin of 2.2, AST of 211 and ALT of 101, alk phos was 180. Serum lipase was normal. She had a CT scan abdomen and pelvis with contrast revealed cirrhotic liver, focal hypodensity within the body of the pancreas likely focal dilatation of the pancreatic duct and less likely a cystic lesion. She is being admitted for abdominal pain with questionable focal hypodensity of the body of the pancreas could be due to stone or mass. Past Medical History Past Medical History (Chronic Problems): Chronic Problems (Last Updated 08/09/18 @ 22:58 by Maye Mcmahon MD) History of partial colectomy (Chronic) 12/19/17 Hx of hysterectomy (Chronic) 2005 Cecal volvulus (Chronic) Clavicular fracture (Chronic) Left wrist fracture (Chronic) Alcohol abuse (Chronic) Subarachnoid hemorrhage following injury (Chronic) Medical History: Medical History (Last Updated 08/09/18 @ 22:58 by Maye Mcmaohn MD) Hx of hysterectomy (Chronic) Z90.710 2005 Cecal volvulus (Chronic) K56.2 Clavicular fracture (Chronic) S42.009A Left wrist fracture (Chronic) S62.102A Alcohol abuse (Chronic) F10.10 Subarachnoid hemorrhage following injury (Chronic) Allergies No Known Allergies Allergy (Verified 01/04/18 10:30) Home Medications: Ambulatory Orders Medication Instructions Recorded Folic Acid 1 mg PO DAILY@0800 08/01/15 Multivitamins,Ther W-Minerals 1 tab PO DAILYCM tab 08/04/15 [Multivitamin With Minerals] Levothyroxine [Synthroid] 25 mcg PO DAILY #30 tab 08/15/15 Lactulose [Chronulac] 30 gm PO BID 09/22/16 Vitamin B Complex 1 ea PO DAILY 09/22/16 Spironolactone [Aldactone] 100 mg PO DAILY 12/19/17 Surgical History: Surgical History (Last Updated 08/09/18 @ 22:58 by Maye Mcmahon MD) History of partial colectomy (Chronic) Z90.49 12/19/17 Surgical History: hysterectomy, tonsillectomy, - - . 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 Lives: With Family Smoking Status: Never smoker Alcohol: None Drugs: None - *Family History Maternal History Items: No pertinent history Paternal History Items: Heart Disease Review of Systems Constitutional: Denies: Anorexia, Chills, Fever, Weakness Eyes: Denies: Blurred vision, Double vision, Drainage, Redness HEENT: Denies: Difficulty Hearing, Ear Pain, Eye Pain, Nasal bleeding, Sore Throat Cardiovascular: Denies: Chest Pain, Chest Tightness, Heaviness, Light Headedness, Palpitations, Syncope Respiratory: Denies: Cough, Pleuritic Pain, Shortness of Breath, Sputum production, Wheezing Gastrointestinal: Reports: Abdominal Pain, Nausea. Denies: Constipation, Diarrhea, Vomiting Genitourinary: Denies: Dysuria, Frequency, Hematuria Musculoskeletal: Denies: Arm Pain, Back Pain, Foot Pain Skin: Denies: Dryness, Rash Neurological: Denies: Balance problems, Double vision, Change in Speech, Slurred speech, Confusion, Focal weakness, Headaches, Incoordination Psychiatric: Denies: Anxiety, Depression VTE Information - Inpt Only VTE Present on Admission: No VTE Mechan Device Prophylaxis: None VTE Pharm Prophylaxis ordered?: No Patient Problems: Active and Suspected Problems (Last Updated 08/09/18 @ 22:58 by Maye Mcmahon MD) Abdominal pain (Acute) Transaminitis (Acute) Abnormal CT of the abdomen (Acute) - Physical Exam General: Alert, Oriented x3, Cooperative, No apparent distress HEENT: Atraumatic, PERRLA, EOMI, Normocephalic Oral: Moist Mucosa, No Gingival or Mucosal Lesions/ Ulcerations Neck: Supple, No JVD, Negative Carotid Bruits, Trachea Midline, Thyroid Normal Size and Texture Lungs: Clear to auscultation, No rhonchi, No wheeze, No rales, Diminished Cardiovascular: Regular rate, Regular Rhythm, Normal S1, Normal S2, PMI Normal Abdomen: Bowel Sounds Present, Soft, Non Tender, Non-Distended, No Hepato-splenomegaly Extremities: No clubbing, No cyanosis, No edema Skin: No rashes, No breakdown Lymphatic: No Cervical, Supraclavicular, or Inguinal Adenopathy Neurological: Cranial nerves II-XII grossly intact, Motor Exam 5/5 strength throughout Psych/Mental Status: Normal Affect, Appropriate, Alert and oriented to time, place, person, mood and affect Vital Signs Temp Pulse Resp BP Pulse Ox 98.1 F 107 H 16 146/91 H 99 08/09/18 17:36 08/09/18 21:15 08/09/18 21:15 08/09/18 21:15 08/09/18 21:15 Oxygen Delivery Method Room Air Weight: 112 lb Body Mass Index (BMI) 20.5 Laboratory Tests Past 24 Hrs 08/09/18 08/09/18 08/09/18 18:37 18:37 19:35 WBC 4.3 L RBC 4.03 L Hgb 13.5 Hct 38.7 MCV 96.0 MCH 33.5 H MCHC 34.9 RDW 12.6 RDW Differential 43.5 Plt Count 91 L MPV 10.0 Immature Gran % (Auto) 0.200 Neut % (Auto) 62.6 Lymph % (Auto) 26.0 [place] % (Auto) 10.0 Eos % (Auto) 0.7 Baso % (Auto) 0.5 Absolute Neuts (auto) 2.7 Absolute Lymphs (auto) 1.12 Total Counted Not Reportable Sodium 129 L Potassium 3.9 Chloride 94 L Carbon Dioxide 25.0 Anion Gap 10 BUN 10 Creatinine 0.74 Estim Creat Clear Calc 61.54 Est GFR (MDRD) Af Amer 101 Est GFR (MDRD) Non-Af 84 BUN/Creatinine Ratio 13.5 Glucose 90 Calcium 9.8 Total Bilirubin 2.20 H AST 211 H ALT 101 H Alkaline Phosphatase 180 H Total Protein 9.0 H Albumin 4.6 Globulin 4.4 H Albumin/Globulin Ratio 1.0 Lipase 192 Urine Color Yellow Urine Clarity Clear Urine pH 6.5 Ur Specific [place] 1.005 Urine Protein Negative Urine Glucose (UA) Normal Urine Ketones Negative Urine Occult Blood Negative Urine Nitrite Negative Urine Bilirubin Negative Urine Urobilinogen 1 H Ur Leukocyte Esterase 100 H Urine RBC 0 SEEN Urine WBC 5-10 SEEN Ur Squamous Epith Cells 0-5 SEEN Urine Bacteria 0 SEEN Urine Mucus 0 SEEN Clinical Impression(s) from Imaging Studies Abdomen/Pelvis CT 08/09/18 18:25 IMPRESSION: Minimal perihepatic fluid significantly improved when compared to prior exam Mild nodularity to the surface of the right lobe of the liver liver likely hepatic cirrhosis, less likely postsurgical or traumatic Cholelithiasis Previous surgery with surgical staple line adjacent to the cecum 4 x 8 mm focal hypodensity within the body of the pancreas likely focal dilation of the pancreatic duct less likely a cystic lesion. Multiphase MRI abdomen with and without contrast MRCP would be recommended to further evaluate Electronically Signed: Royce Zander, at 20:50 EDT Tel , Service support , Assessment/Plan All Active Problems (Last Updated 08/09/18 @ 22:58 by Maye Mcmahon MD) Abdominal pain (Acute) Transaminitis (Acute) Abnormal CT of the abdomen (Acute) This is a 63 years old female patient presented to the emergency room because of abdominal pain, found to have focal hypodensity within the body of the pancreas likely due to focal dilatation of the pancreatic duct, pancreatic mass cannot be ruled out and she is being admitted for evaluation. #1 abdominal pain/focal hypodensity of the body of the pancreas: CT scan abdomen revealed gallstones and focal hypodensity of the body of the pancreas, could be focal dilatation versus pancreatic mass. LFT is currently elevated because of history of alcoholic liver cirrhosis. Her vital signs are stable. Lipase was normal. Plan: Admit to [facility] for observation, cardiac monitoring, keep on clear liquids, IV fluids, IV morphine as needed, IV antiemetics as needed, repeat CBC and CMP tomorrow morning, MRCP tomorrow morning. If the MRCP came back positive for choledocholithiasis, patient may need to be transferred to tertiary care center for ERCP. #2 alcoholic liver cirrhosis: Clinically stable, she has chronic leukopenia and thrombocytopenia as well as mild hyponatremia which is attributed to chronic liver disease. Total bilirubin and transaminases are chronically elevated. Both ALT and AST are slightly elevated more than baseline. Plan for MRCP, continue folic acid, continue lactulose and Aldactone. #3 hypothyroidism: Stable, continue levothyroxine. #4 history of cecal volvulus: Status post right hemicolectomy back in December,. Stable, no evidence of bowel obstruction or virus on the CAT scan. #5 history of subarachnoid hemorrhage: Stable, no acute issues. #6 DVT prophylaxis: No chemical prophylaxis because of thrombocytopenia. This note was generated with [employer] dictation software. It may contain incorrect words, spelling, and punctuation that were not noted in checking the note before signing. Code Visit OBSV E&M: 25165 Initial observation care L3
--- NOTE | 2018-08-09 23:08 | HP.PCM_ITS ---
Problem List (1) History of partial colectomy Status: Chronic Comment: 12/19/17 (2) Cecal volvulus Status: Chronic (3) Alcohol abuse Status: Chronic (4) Subarachnoid hemorrhage following injury Status: Chronic Qualifiers: Encounter type: sequela Loss of consciousness presence/duration: without LOC Qualified Code(s): S06.6X0S - Traumatic subarachnoid hemorrhage without loss of consciousness, sequela History of Present Illness Date of Admission: 08/09/18 Chief Complaint: Abdominal pain. The patient is a 63 year old F with past medical history as mentioned above presented to the emergency room because of abdominal pain. Her symptoms started on 5 days ago with abdominal pain, just above the umbilicus as well as epigastric in location, dull aching pain, 8 out of 10 in severity, nonradiating, intermittent, associated with mild nausea without vomiting and without aggravating or relieving factors. She denied fever or chills. She denied constipation or diarrhea. She denies urinary symptoms. In the emergency department, she was afebrile, blood pressure and heart rate were stable and she was maintaining pulse ox on room air. Routine blood work was remarkable for mild leukopenia, thrombocytopenia, sodium of 129. LFT revealed total bilirubin of 2.2, AST of 211 and ALT of 101, alk phos was 180. Serum lipase was normal. She had a CT scan abdomen and pelvis with contrast revealed cirrhotic liver, foc al hypodensity within the body of the pancreas likely focal dilatation of the pancreatic duct and less likely a cystic lesion. She is being admitted for abdominal pain with questionable focal hypodensity of the body of the pancreas could be due to stone or mass. Past Medical History Past Medical History (Chronic Problems): Chronic Problems (Last Updated 08/09/18 @ 22:58 by Maye Mcmahon MD) History of partial colectomy (Chronic) 12/19/17 Hx of hysterectomy (Chronic) 2005 Cecal volvulus (Chronic) Clavicular fracture (Chronic) Left wrist fracture (Chronic) Alcohol abuse (Chronic) Subarachnoid hemorrhage following injury (Chronic) Medical History: Medical History (Last Updated 08/09/18 @ 22:58 by Maye Mcmahon MD) Hx of hysterectomy (Chronic) Z90.710 2005 Cecal volvulus (Chronic) K56.2 Clavicular fracture (Chronic) S42.009A Left wrist fracture (Chronic) S62.102A Alcohol abuse (Chronic) F10.10 Subarachnoid hemorrhage following injury (Chronic) Allergies No Known Allergies Allergy (Verified 01/04/18 10:30) Home Medications: Ambulatory Orders Medication Instructions Recorded Folic Acid 1 mg PO DAILY@0800 08/01/15 Multivitamins,Ther W-Minerals 1 tab PO DAILYCM tab 08/04/15 [Multivitamin With Minerals] Levothyroxine [Synthroid] 25 mcg PO DAILY #30 tab 08/15/15 Lactulose [Chronulac] 30 gm PO BID 09/22/16 Vitamin B Complex 1 ea PO DAILY 09/22/16 Spironolactone [Aldactone] 100 mg PO DAILY 12/19/17 Surgical History: Surgical History (Last Updated 08/09/18 @ 22:58 by Maye Mcmahon MD) History of partial colectomy (Chronic) Z90.49 12/19/17 Surgical History: hysterectomy, tonsillectomy, - - . 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 Lives: With Family Smoking Status: Never smoker Alcohol: None Drugs: None - *Family History Maternal History Items: No pertinent history Paternal History Items: Heart Disease Review of Systems Constitutional: Denies: Anorexia, Chills, Fever, Weakness Eyes: Denies: Blurred vision, Double vision, Drainage, Redness HEENT: Denies: Difficulty Hearing, Ear Pain, Eye Pain, Nasal bleeding, Sore Throat Cardiovascular: Denies: Chest Pain, Chest Tightness, Heaviness, Light Headedness, Palpitations, Syncope Respiratory: Denies: Cough, Pleuritic Pain, Shortness of Breath, Sputum production, Wheezing Gastrointestinal: Reports: Abdominal Pain, Nausea. Denies: Constipation, Diarrhea, Vomiting Genitourinary: Denies: Dysuria, Frequency, Hematuria Musculoskeletal: Denies: Arm Pain, Back Pain, Foot Pain Skin: Denies: Dryness, Rash Neurological: Denies: Balance problems, Double vision, Change in Speech, Slurred speech, Confusion, Focal weakness, Headaches, Incoordination Psychiatric: Denies: Anxiety, Depression VTE Information - Inpt Only VTE Present on Admission: No VTE Mechan Device Prophylaxis: None VTE Pharm Prophylaxis ordered?: No Patient Problems: Active and Suspected Problems (Last Updated 08/09/18 @ 22:58 by Maye Mcmahon MD) Abdominal pain (Acute) Transaminitis (Acute) Abnormal CT of the abdomen (Acute) - Physical Exam General: Alert, Oriented x3, Cooperative, No apparent distress HEENT: Atraumatic, PERRLA, EOMI, Normocephalic Oral: Moist Mucosa, No Gingival or Mucosal Lesions/ Ulcerations Neck: Supple, No JVD, Negative Carotid Bruits, Trachea Midline, Thyroid Normal Size and Texture Lungs: Clear to auscultation, No rhonchi, No wheeze, No rales, Diminished Cardiovascular: Regular rate, Regular Rhythm, Normal S1, Normal S2, PMI Normal Abdomen: Bowel Sounds Present, Soft, Non Tender, Non-Distended, No Hepato- splenomegaly Extremities: No clubbing, No cyanosis, No edema Skin: No rashes, No breakdown Lymphatic: No Cervical, Supraclavicular, or Inguinal Adenopathy Neurological: Cranial nerves II-XII grossly intact, Motor Exam 5/5 strength throughout Psych/Mental Status: Normal Affect, Appropriate, Alert and oriented to time, place, person, mood and affect Vital Signs Temp Pulse Resp BP Pulse Ox 98.1 F 107 H 16 146/91 H 99 08/09/18 17:36 08/09/18 21:15 08/09/18 21:15 08/09/18 21:15 08/09/18 21:15 Oxygen Delivery Method Room Air Weight: 112 lb Body Mass Index (BMI) 20.5 Laboratory Tests Past 24 Hrs 08/09/18 08/09/18 08/09/18 18:37 18:37 19:35 WBC 4.3 L RBC 4.03 L Hgb 13.5 Hct 38.7 MCV 96.0 MCH 33.5 H MCHC 34.9 RDW 12.6 RDW Differential 43.5 Plt Count 91 L MPV 10.0 Immature Gran % (Auto) 0.200 Neut % (Auto) 62.6 Lymph % (Auto) 26.0 [place] % (Auto) 10.0 Eos % (Auto) 0.7 Baso % (Auto) 0.5 Absolute Neuts (auto) 2.7 Absolute Lymphs (auto) 1.12 Total Counted Not Reportable Sodium 129 L Potassium 3.9 Chloride 94 L Carbon Dioxide 25.0 Anion Gap 10 BUN 10 Creatinine 0.74 Estim Creat Clear Calc 61.54 Est GFR (MDRD) Af Amer 101 Est GFR (MDRD) Non-Af 84 BUN/Creatinine Ratio 13.5 Glucose 90 Calcium 9.8 Total Bilirubin 2.20 H AST 211 H ALT 101 H Alkaline Phosphatase 180 H Total Protein 9.0 H Albumin 4.6 Globulin 4.4 H Albumin/Globulin Ratio 1.0 Lipase 192 Urine Color Yellow Urine Clarity Clear Urine pH 6.5 Ur Specific [place] 1.005 Urine Protein Negative Urine Glucose (UA) Normal Urine Ketones Negative Urine Occult Blood Negative Urine Nitrite Negative Urine Bilirubin Negative Urine Urobilinogen 1 H Ur Leukocyte Esterase 100 H Urine RBC 0 SEEN Urine WBC 5-10 SEEN Ur Squamous Epith Cells 0-5 SEEN Urine Bacteria 0 SEEN Urine Mucus 0 SEEN Clinical Impression(s) from Imaging Studies Abdomen/Pelvis CT 08/09/18 18:25 IMPRESSION: Minimal perihepatic fluid significantly improved when compared to prior exam Mild nodularity to the surface of the right lobe of the liver liver likely hepatic cirrhosis, less likely postsurgical or traumatic Cholelithiasis Previous surgery with surgical staple line adjacent to the cecum 4 x 8 mm focal hypodensity within the body of the pancreas likely focal dilation of the pancreatic duct less likely a cystic lesion. Multiphase MRI abdomen with and without contrast MRCP would be recommended to further evaluate Electronically Signed: Royce Zander, at 20:50 EDT Tel , Service support , Assessment/Plan All Active Problems (Last Updated 08/09/18 @ 22:58 by Maye Mcmahon MD) Abdominal pain (Acute) Transaminitis (Acute) Abnormal CT of the abdomen (Acute) This is a 63 years old female patient presented to the emergency room because of abdominal pain, found to have focal hypodensity within the body of the pancreas likely due to focal dilatation of the pancreatic duct, pancreatic mass cannot be ruled out and she is being admitted for evaluation. #1 abdominal pain/focal hypodensity of the body of the pancreas: CT scan abdomen revealed gallstones and focal hypodensity of the body of the pancreas, could be focal dilatation versus pancreatic mass. LFT is currently elevated because of history of alcoholic liver cirrhosis. Her vital signs are stable. Lipase was normal. Plan: Admit to [facility] for observation, cardiac monitoring, keep on clear liquids, IV fluids, IV morphine as needed, IV antiemetics as needed, repeat CBC and CMP tomorrow morning, MRCP tomorrow morning. If the MRCP came back positive for choledocholithiasis, patient may need to be transferred to tertiary care center for ERCP. #2 alcoholic liver cirrhosis: Clinically stable, she has chronic leukopenia and thrombocytopenia as well as mild hyponatremia which is attributed to chronic liver disease. Total bilirubin and transaminases are chronically elevated. Both ALT and AST are slightly elevated more than baseline. Plan for MRCP, continue folic acid, continue lactulose and Aldactone. #3 hypothyroidism: Stable, continue levothyroxine. #4 history of cecal volvulus: Status post right hemicolectomy back in December,. Stable, no evidence of bowel obstruction or virus on the CAT scan. #5 history of subarachnoid hemorrhage: Stable, no acute issues. #6 DVT prophylaxis: No chemical prophylaxis because of thrombocytopenia. This note was generated with [employer] dictation software. It may contain incorrect words, spelling, and punctuation that were not noted in checking the note before signing. Code Visit OBSV E&M: 78543 Initial observation care L3
[2018-08-10] VITALS (8 sets, daily range): BP systolic 109–133; BP diastolic 65–82; PULSE 72–95; RESP 15–18; TEMP 36.8–37.1; O2SAT 97–100; BMI 20.5; BMI 20.6
--- NOTE | 2018-08-10 01:20 | MRI_ITS ---
STUDY: MR CHOLANGIOPANCREATOGRAPHY (MRCP) REASON FOR EXAM: Female, 63 years old. Abdominal pain and cirrhosis TECHNIQUE: Standard MRCP technique was utilized. COMPARISON: None. FINDINGS: Liver: The liver contour is nodular and the liver is enlarged measuring 17.3 cm sagittal dimension. The right hepatic lobe, segment 7 is particularly heterogeneous demonstrating at least one focal lesion measuring 1.2 x 0.9 cm which is only mildly hyperintense on T2 sequences, this is indeterminate. No intrahepatic biliary ductal dilatation. There is mild perihepatic and perisplenic ascites. Gall Bladder: There are multiple layering stones in the gallbladder. Cystic duct: Normal with no demonstrated fixed filling defect. Intrahepatic ducts: Normal visualized intrahepatic ducts with no demonstrated fixed filling defect, dilation or stricture. Common hepatic duct: Normal with no demonstrated fixed filling defect, dilation or stricture. Common bile duct: Normal with no demonstrated fixed filling defect, dilation or stricture. Pancreatic duct: Normal with no demonstrated fixed filling defect, dilation or stricture. A previously described subcentimeter focal lesion in the body of the pancreas is nonvisualized on this noncontrast study. Other: The spleen is mildly enlarged measuring 12.9 cm in maximum dimension. MRI/MRCP Abdomen without Contrast IMPRESSION: 1. No intrahepatic or extrahepatic biliary ductal dilatation. Multiple layering stones in the gallbladder. 2. Hepatosplenomegaly. Liver contour is nodular in keeping with known cirrhosis and there is marked parenchymal heterogeneity in the right hepatic lobe segment 7 with at least one focal, indeterminate lesion. MRI abdomen with and without IV contrast is recommended for further characterization. 3. A previously described subcentimeter focal lesion in the body of the pancreas is nonvisualized on this noncontrast study. This can also be evaluated on MRI abdomen with IV contrast. 4. Mild ascites. Electronically Signed: Marilyn Thurston, at 11:01 EDT Tel , Service support ,
[2018-08-10] MEDS: 0.9% Normal Saline 1,000 ML 75 ML IV (01:41)
[2018-08-10] MEDS: Levothyroxine 25 MCG TABLET PO (05:53)
[2018-08-10 06:38] LABS: Absolute Lymphocyte Count 1.23 X10^3/ul (0.83-4.51); Basophil# 0.03 X10^3/uL; Basophil% 0.8 % (0-1); Eosinophil# 0.06 X10^3/uL; Eosinophils% 1.6 % (0-5); Hematocrit 34.8 % (37-47); Lymphocyte # 1.23 X10^3/ul (4.0); Lymphocyte % 32.2 % (19-41); Mean Corp Hgb Conc 34.5 g/gl (32-36); Mean Corpuscular Hgb 33.3 pg (27.0-32.0); Mean Corpuscular Volume 96.7 fL (81-99); Mean Platelet Vol. 10.4 fl (6.2-12.0); Monocyte# 0.54 X10^3/uL; Monocyte% 14.1 % (0-10); Neutrophil # 1.95 X10^3/uL (2.7-7.7); Platelet Count 71 K/mm3 (150-450); RBC Distribution Width CV 12.5 % (11.6-14.6); RBC Distribution Width SD 44.2 fl (35.1-43.9); White Blood Count 3.8 K/mm3 (4.4-11.0)
[2018-08-10 06:39] LABS: POSITIVE COUNT NO; POSITIVE DIFFERENTIAL NO; POSITIVE MORPHOLOGY NO
[2018-08-10 06:57] LABS: AST(SGOT) 148 U/L (15-37); Alanine Aminotransfer ALT/SGPT 78 U/L (13-56); Albumin, Serum 3.6 g/dL (3.2-5.0); Alkaline Phosphatase 141 U/L (45-117); Anion Gap 9 (5-15); BUN 10 mg/dL (7-18); BUN/Creat Ratio 15.4 RATIO (10-20); Calcium,Total 8.8 mg/dL (8.5-10.1); Chloride 100 mmol/L (98-107); Creatinine, Serum 0.65 mg/dL (0.55-1.02); EST Glomerular Filtration Rate 98 mL/min (>60); Est Glom Filt Rate - Afr Amer 119 mL/min (>60); Estimated Creatinine Clearance 70.07 ml/min; Globulin 3.5 g/dL (2.2-4.2); Glucose 73 mg/dL (74-106); Potassium 3.5 mmol/L (3.5-5.1); Protein, Total 7.1 g/dL (6.4-8.2); Sodium Level 133 mmol/L (136-145)
--- NOTE | 2018-08-10 07:31 | NURSING ---
message left on MRI voicemail, inquiring about time of MRCP for today, requested call back for time.
[2018-08-10] MEDS: 0.9% NaCl Peripheral Flush Adult/Peds IV ×2 (07:45→11:37)
--- NOTE | 2018-08-10 11:11 | MRI_ITS ---
STUDY: MRI ABDOMEN WITH AND WITHOUT CONTRAST REASON FOR EXAM: Female, 63 years old. Evaluate hepatic lesion. TECHNIQUE: Standardized fat and water weighted pulse sequences were obtained in all 3 orthogonal planes post contrast administration. 10 IV Dotarem was administered for the contrast portion of the examination. COMPARISON: MRCP and recent CT abdomen and pelvis. FINDINGS: The visualized lung bases are unremarkable. The visualized portions of the heart are within normal limits. The liver contour is nodular and the liver is enlarged measuring 17.3 cm sagittal dimension. The right hepatic lobe, segment 7 is particularly heterogeneous and contains a 1.2 x 0.9 cm lesion which is mildly hyperintense on T2 and demonstrates peripheral, centripetal filling on postcontrast imaging. There is a small, nonenhancing hepatic cyst adjacent to the portal vein. No intrahepatic biliary ductal dilatation. There is mild perihepatic and perisplenic ascites. Multiple layering stones in the gallbladder. Normal extrahepatic biliary system. There is mild splenomegaly. Normal pancreas. No enhancing pancreatic mass. Normal bilateral adrenal glands. Normal right kidney. Normal left kidney. Normal visualized stomach. Normal visualized small intestine. Normal visualized colon. Normal abdominal aorta. Normal inferior vena cava. Normal retroperitoneum. Normal abdominal wall. Normal osseous structures. MRI/MRI Abd WITH and W/O Contrast IMPRESSION: 1.2 x 0.9 cm right hepatic lobe lesion demonstrates centripetal filling on postcontrast imaging, most consistent with hemangioma. Short-term follow-up is recommended due to known cirrhosis. No enhancing pancreatic mass. No pancreatic duct dilatation. Mild splenomegaly. Cholelithiasis. Electronically Signed: Marilyn Thurston, at 15:25 EDT Tel , Service support ,
[2018-08-10] MEDS: Ensure Clear 120 ML Liquid PO (13:48)
[2018-08-10] MEDS: Spironolactone 50 MG Tablet 100 MG PO (13:48)
[2018-08-10] MEDS: Lactulose 20 GM/30 ML UDC 30 GM PO (13:49)
[2018-08-10] MEDS: Folic Acid 1 MG Tablet PO (13:49)
--- NOTE | 2018-08-10 16:06 | DCINST_ITS ---
- Discharge Diagnoses Current Active Problems: Current Active and Chronic Problems (Last Updated 08/09/18 @ 22:58 by Maye Mcmahon MD) Abdominal pain (Acute) Transaminitis (Acute) Abnormal CT of the abdomen (Acute) You will use the following diet at home:: Regular Discharge Activity: Return to Normal Activity Allergies/Adverse Reactions: Allergies No Known Allergies Allergy (Verified 01/04/18 10:30) Medications to take at Discharge Folic Acid 1 mg PO DAILY@0800 08/01/15 Lactulose [Chronulac] 30 gm PO BID 09/22/16 Vitamin B Complex 1 ea PO DAILY 09/22/16 Spironolactone [Aldactone] 100 mg PO DAILY 12/19/17 Levothyroxine [Synthroid] 25 mcg PO DAILY 08/10/18 Multivitamins,Ther W-Minerals [Multivitamin With Minerals] 1 tablet PO DAILYCM 08/10/18 Pantoprazole Sodium [Protonix] 40 mg PO DAILY 08/10/18 Primary Care Physician: Trevor Morales MD [Primary Care Provider] - Please follow up with your Primary Care Physician in: in 5-7 days Test Results: Test results from this visit will be discussed in further detail at your follow- up appointment, if applicable. Please Follow Up With: Rajendra Wells MD When: call for appointment
--- NOTE | 2018-08-10 16:07 | PCM.DC.SUM ---
Discharge Date and Diagnosis - Problem List Patient Problems: Active and Suspected Problems (Last Updated 08/09/18 @ 22:58 by Maye Mcmahon MD) Abdominal pain (Acute) Transaminitis (Acute) Abnormal CT of the abdomen (Acute) Date of Admission: 08/09/18 Date of Discharge: 08/10/18 - Primary Discharge Diagnosis Active and Suspected Problems (Last Updated 08/09/18 @ 22:58 by Maye Mcmahon MD) Abdominal pain (Acute) Transaminitis (Acute) Abnormal CT of the abdomen (Acute) - Secondary Discharge Diagnosis Chronic Problems (Last Updated 08/09/18 @ 22:58 by Maye Mcmahon MD) History of partial colectomy (Chronic) 12/19/17 Hx of hysterectomy (Chronic) 2004 Cecal volvulus (Chronic) Clavicular fracture (Chronic) Left wrist fracture (Chronic) Alcohol abuse (Chronic) Subarachnoid hemorrhage following injury (Chronic) Hospital Course and Treatment Imaging Results: Clinical Impression(s) from Imaging Studies Abdomen/Pelvis CT 08/09/18 18:25 IMPRESSION: Minimal perihepatic fluid significantly improved when compared to prior exam Mild nodularity to the surface of the right lobe of the liver liver likely hepatic cirrhosis, less likely postsurgical or traumatic Cholelithiasis Previous surgery with surgical staple line adjacent to the cecum 4 x 8 mm focal hypodensity within the body of the pancreas likely focal dilation of the pancreatic duct less likely a cystic lesion. Multiphase MRI abdomen with and without contrast MRCP would be recommended to further evaluate Electronically Signed: Royce Zander, at 20:50 EDT Tel , Service support , MRCP 08/10/18 01:20 IMPRESSION: 1. No intrahepatic or extrahepatic biliary ductal dilatation. Multiple layering stones in the gallbladder. 2. Hepatosplenomegaly. Liver contour is nodular in keeping with known cirrhosis and there is marked parenchymal heterogeneity in the right hepatic lobe segment 7 with at least one focal, indeterminate lesion. MRI abdomen with and without IV contrast is recommended for further characterization. 3. A previously described subcentimeter focal lesion in the body of the pancreas is nonvisualized on this noncontrast study. This can also be evaluated on MRI abdomen with IV contrast. 4. Mild ascites. Electronically Signed: Marilyn Thurston, at 11:01 EDT Tel , Service support , Abdomen MRI 08/10/18 11:11 IMPRESSION: 1.2 x 0.9 cm right hepatic lobe lesion demonstrates centripetal filling on postcontrast imaging, most consistent with hemangioma. Short-term follow-up is recommended due to known cirrhosis. No enhancing pancreatic mass. No pancreatic duct dilatation. Mild splenomegaly. Cholelithiasis. Electronically Signed: Marilyn Thurston, at 15:25 EDT Tel , Service support , Operations: None Summary of Care Provided: The patient is a 63 year old F admitted with abdominal pain 1. Abdominal pain suspected to be secondary to suspected biliary colic. Patient was admitted to a monitored bed. Initial CT of the abdomen revealed gallstones. Patient underwent subsequent evaluation with MRCP as well as MRI of the abdomen. Result demonstrated no intrahepatic or extrahepatic biliary ductal dilatation. Multiple layering stones in the gallbladder. MRI of the abdomen did not demonstrate any pancreatic lesion. With patient symptoms having resolved patient was discharged home instructed to follow-up with primary care physician for subsequent care. Patient was also instructed to follow-up with Dr. Wells his surgeon regarding her gallstones. Patient was informed about the questionable hemangioma found in the liver and instructed to follow-up with PCP for repeat imaging studies in 6-month 2. 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 Leukopenia secondary to #2 4. Thrombocytopenia secondary to #2 5. Hypothyroidism-patient is on levothyroxine home dose continued 6. History of cecal volvulus: Status post right hemicolectomy back in December,. 7. History of subarachnoid hemorrhage Patient Problems: Active and Suspected Problems (Last Updated 08/09/18 @ 22:58 by Maye Mcmahon MD) Abdominal pain (Acute) Transaminitis (Acute) Abnormal CT of the abdomen (Acute) - Physical Exam General: Alert HEENT: Atraumatic Neck: Supple Lungs: Clear to auscultation Neurological: Neuro grossly intact Psych/Mental Status: Normal Affect Vital Signs Temp Pulse Resp BP Pulse Ox 98.8 F 89 18 109/65 99 08/10/18 15:25 08/10/18 15:25 08/10/18 15:25 08/10/18 15:25 08/10/18 15:25 Oxygen Delivery Method Room Air Weight: 51 kg Body Mass Index (BMI) 20.5 Intake and Output for Last 24 Hours 08/08/18 08/09/18 08/10/18 23:59 23:59 23:59 Intake Total 961 / 961 Balance 961 / 961 Laboratory Tests Past 24 Hrs 08/09/18 08/09/18 08/09/18 18:37 18:37 19:35 WBC 4.3 L RBC 4.03 L Hgb 13.5 Hct 38.7 MCV 96.0 MCH 33.5 H MCHC 34.9 RDW 12.6 RDW Differential 43.5 Plt Count 91 L MPV 10.0 Immature Gran % (Auto) 0.200 Neut % (Auto) 62.6 Lymph % (Auto) 26.0 [place] % (Auto) 10.0 Eos % (Auto) 0.7 Baso % (Auto) 0.5 Absolute Neuts (auto) 2.7 Absolute Lymphs (auto) 1.12 Total Counted Not Reportable Sodium 129 L Potassium 3.9 Chloride 94 L Carbon Dioxide 25.0 Anion Gap 10 BUN 10 Creatinine 0.74 Estim Creat Clear Calc 61.54 Est GFR (MDRD) Af Amer 101 Est GFR (MDRD) Non-Af 84 BUN/Creatinine Ratio 13.5 Glucose 90 Calcium 9.8 Total Bilirubin 2.20 H AST 211 H ALT 101 H Alkaline Phosphatase 180 H Total Protein 9.0 H Albumin 4.6 Globulin 4.4 H Albumin/Globulin Ratio 1.0 Lipase 192 Urine Color Yellow Urine Clarity Clear Urine pH 6.5 Ur Specific [place] 1.005 Urine Protein Negative Urine Glucose (UA) Normal Urine Ketones Negative Urine Occult Blood Negative Urine Nitrite Negative Urine Bilirubin Negative Urine Urobilinogen 1 H Ur Leukocyte Esterase 100 H Urine RBC 0 SEEN Urine WBC 5-10 SEEN Ur Squamous Epith Cells 0-5 SEEN Urine Bacteria 0 SEEN Urine Mucus 0 SEEN 08/10/18 08/10/18 05:20 05:20 WBC 3.8 L RBC 3.60 L Hgb 12.0 Hct 34.8 L MCV 96.7 MCH 33.3 H MCHC 34.5 RDW 12.5 RDW Differential 44.2 H Plt Count 71 L MPV 10.4 Immature Gran % (Auto) 0.300 Neut % (Auto) 51.0 Lymph % (Auto) 32.2 [place] % (Auto) 14.1 H Eos % (Auto) 1.6 Baso % (Auto) 0.8 Absolute Neuts (auto) 2.0 Absolute Lymphs (auto) 1.23 Total Counted Not Reportable Sodium 133 L Potassium 3.5 Chloride 100 Carbon Dioxide 24.0 Anion Gap 9 BUN 10 Creatinine 0.65 Estim Creat Clear Calc 70.07 Est GFR (MDRD) Af Amer 119 Est GFR (MDRD) Non-Af 98 BUN/Creatinine Ratio 15.4 Glucose 73 L Calcium 8.8 Total Bilirubin 2.70 H AST 148 H ALT 78 H Alkaline Phosphatase 141 H Total Protein 7.1 Albumin 3.6 Globulin 3.5 Albumin/Globulin Ratio 1.0 Lipase Urine Color Urine Clarity Urine pH Ur Specific [place] Urine Protein Urine Glucose (UA) Urine Ketones Urine Occult Blood Urine Nitrite Urine Bilirubin Urine Urobilinogen Ur Leukocyte Esterase Urine RBC Urine WBC Ur Squamous Epith Cells Urine Bacteria Urine Mucus Discharge Activity: Return to Normal Activity Home Medications: Medications to take at Discharge Folic Acid 1 mg PO DAILY@0800 08/01/15 Lactulose [Chronulac] 30 gm PO BID 09/22/16 Vitamin B Complex 1 ea PO DAILY 09/22/16 Spironolactone [Aldactone] 100 mg PO DAILY 12/19/17 Levothyroxine [Synthroid] 25 mcg PO DAILY 08/10/18 Multivitamins,Ther W-Minerals [Multivitamin With Minerals] 1 tablet PO DAILYCM 08/10/18 Pantoprazole Sodium [Protonix] 40 mg PO DAILY 08/10/18 Primary Care Physician: Trevor Morales MD [Primary Care Provider] - Please follow up with your Primary Care Physician in: in 5-7 days Please Follow Up With: Rajendra Wells MD When: call for appointment Disposition: Home Minutes spent on discharge:: 35 Patient Condition:: Stable Medical Necessity - Tobacco Use Smoking Status: Never smoker Meaningful Use Info Meaningful Use Diagnoses (Choose all that apply): None applicable Code Visit OBSV E&M: 12790 Observation care discharge
== END 2018-08-10 16:45 | disposition home or self-care (01) ==
LOC: ED 23:02 → MS3 23:40
PROVIDERS: Admitting Provider Hospitalist; Emergency Provider Emergency Medicine; Family Provider Family Medicine; PCP Family Medicine; Visit Provider Internal Medicine
DX: R10.84 Generalized abdominal pain (principal); R74.0 Nonspecific elevation of levels of transaminase and lactic acid dehydrogenase [LDH]; R30.0 Dysuria; K56.2 Volvulus; F32.9 Major depressive disorder, single episode, unspecified; Z79.899 Other long term (current) drug therapy; K70.30 Alcoholic cirrhosis of liver without ascites; E03.9 Hypothyroidism, unspecified; E87.1 Hypo-osmolality and hyponatremia; D69.6 Thrombocytopenia, unspecified; D72.819 Decreased white blood cell count, unspecified
CPT/HCPCS: 36415; 74177; 74181; 74183; 80053; 81001; 83690; 85025; 87077; 87086; 87088; 87186; 96361; 96374; 97802; 99218; 99282; 99284; A9575; J7030; Q9967; A4216; G0378; J2405

== ENCOUNTER → 2018-08-19 15:08 | Outpatient (CLI) | payer MEDICAID, SELFPAY ==
[2018-08-19 14:47] VITALS: BMI 20.5
[2018-08-19 15:32] LABS: Absolute Lymphocyte Count 2.28 X10^3/ul (0.83-4.51); Absolute Neutrophil Count 3.7 X10^3/uL (2.0-7.7); Basophil# 0.06 X10^3/uL; Basophil% 0.9 % (0-1); Eosinophil# 0.07 X10^3/uL; Hematocrit 39.3 % (37-47); Hemoglobin 13.6 g/dl (12.0-15.0); Lymphocyte # 2.28 X10^3/ul (4.0); Mean Corp Hgb Conc 34.6 g/gl (32-36); Mean Corpuscular Hgb 33.4 pg (27.0-32.0); Mean Corpuscular Volume 96.6 fL (81-99); Monocyte# 0.61 X10^3/uL; Monocyte% 9.1 % (0-10); Neutrophil # 3.67 X10^3/uL (2.7-7.7); Neutrophil % 54.7 % (47-70); Platelet Count 158 K/mm3 (150-450); RBC Distribution Width CV 12.8 % (11.6-14.6); RBC Distribution Width SD 43.7 fl (35.1-43.9); Red Blood Count 4.07 M/mm3 (4.2-5.4); White Blood Count 6.7 K/mm3 (4.4-11.0)
[2018-08-19 15:35] LABS: POSITIVE COUNT NO; POSITIVE DIFFERENTIAL NO; POSITIVE MORPHOLOGY NO
[2018-08-19 15:46] LABS: International Normalized Ratio 1.1; Prothrombin Time (Protime)PT. 13.8 SECONDS (11.7-14.9)
[2018-08-19 15:50] LABS: AST(SGOT) 130 U/L (15-37); Alanine Aminotransfer ALT/SGPT 75 U/L (13-56); Albumin, Serum 4.2 g/dL (3.2-5.0); Alkaline Phosphatase 163 U/L (45-117); Anion Gap 9 (5-15); BUN 5 mg/dL (7-18); BUN/Creat Ratio 6.8 RATIO (10-20); Calcium,Total 9.3 mg/dL (8.5-10.1); Chloride 101 mmol/L (98-107); Creatinine, Serum 0.74 mg/dL (0.55-1.02); EST Glomerular Filtration Rate 84 mL/min (>60); Est Glom Filt Rate - Afr Amer 102 mL/min (>60); Glucose 110 mg/dL (74-106); Potassium 3.9 mmol/L (3.5-5.1); Protein, Total 8.2 g/dL (6.4-8.2); Sodium Level 133 mmol/L (136-145)
== END ==
PROVIDERS: Family Provider Family Medicine; PCP Family Medicine; Visit Provider Surgery
DX: K74.60 Unspecified cirrhosis of liver (principal)
CPT/HCPCS: 36415; 80053; 85025; 85610

== ENCOUNTER 2019-04-24 09:05 | Inpatient (IN) | payer SELFPAY ==
[2018-08-19 14:47] VITALS: BMI 20.5
[2019-04-24] VITALS (7 sets, daily range): BP systolic 88–121; BP diastolic 60–87; PULSE 88–112; RESP 15–18; TEMP 36.6–37.4; O2SAT 96–100; BMI 20.1; BMI 20.4
[2019-04-24] MEDS: 0.9% Normal Saline 1,000 ML 999 ML IV (09:20)
--- NOTE | 2019-04-24 09:21 | US_ITS ---
STUDY: ABDOMINAL ULTRASOUND - RIGHT UPPER QUADRANT REASON FOR VISIT: Female, 63 years old pain , nausea TECHNIQUE: Ultrasound evaluation of the right upper quadrant was performed with real-time and static pitt-scale imaging. TECHNICAL QUALITY: Limited. Examination limited by bowel gas. COMPARISON: None. FINDINGS: Liver: The liver measures 17.8 cm. There is increased echogenicity consistent with fatty infiltration. The bile ducts are within normal limits. There is hepatic color flow. The direction of portal flow is hepatopetal. There is no demonstrated mass lesion. Gallbladder: Normal distended gallbladder. The gallbladder wall measures 3.5 mm. There is a positive sonographic Cobb''s sign. There is pericholecystic fluid. There are multiple echogenic structures within the gallbladder, consistent with multiple gallstones. Common Bile Duct (C.B.D.): The common bile duct measures 5.5 mm. Pancreas: There is nonvisualization of the pancreas. Right Kidney: Normal size of the right kidney. The right kidney measures 11.7 x 4.2 x 4.4 cm. Normal renal cortex. The right cortex measures 1.3 cm. There is no demonstrated renal mass or cyst. There is no right hydronephrosis. US/Gallbladder IMPRESSION: Cholelithiasis with gallbladder wall thickening, positive Cobb sign and pericholecystic fluid. Findings are suspicious for cholecystitis. Surgical consultation recommended Electronically Signed: Keo Thibodeaux MD at 10:53 EST , Service support ,
[2019-04-24 09:32] LABS: Absolute Lymphocyte Count 0.99 X10^3/uL (0.83-4.51); Absolute Neutrophil Count 11.9 X10^3/uL (2.0-7.7); Basophil# 0.05 X10^3/uL; Basophil% 0.4 % (0-1); Eosinophil# 0.14 X10^3/uL; Hematocrit 43.6 % (37-47); Hemoglobin 14.7 g/dL (12.0-15.0); Lymphocyte # 0.99 X10^3/ul (4.0); Lymphocyte % 7.2 % (19-41); Mean Corp Hgb Conc 33.7 g/dL (32-36); Mean Corpuscular Hgb 34.2 pg (27.0-32.0); Mean Corpuscular Volume 101.4 fL (81-99); Mean Platelet Vol. 10.1 fl (6.2-12.0); Monocyte# 0.61 X10^3/uL; Monocyte% 4.4 % (0-10); NRBC Flagged by Analyzer 0 % (0-5); Neutrophil # 11.92 X10^3/uL (2.7-7.7); Neutrophil % 86.3 % (47-70); Platelet Count 177 K/mm3 (150-450); RBC Distribution Width CV 13.7 % (11.6-14.6); RBC Distribution Width SD 50.4 fl (35.1-43.9); White Blood Count 13.8 K/mm3 (4.4-11.0)
[2019-04-24] MEDS: Ondansetron 4 MG/2 ML Vial IV (09:33)
[2019-04-24] MEDS: Morphine 4 MG/ML Syringe IV (09:33)
--- NOTE | 2019-04-24 09:44 | ED.VISSUMM ---
- ER Visit Summary Date of Service: 04/24/19 Chief Complaint: Abdominal pain History of Present Illness: The patient is a 63 F who presents with abdominal pain. Started last night and got worse this morning. She describes an aching in her right upper quadrant. Nothing makes it better or worse. She does have some nausea without vomiting. No diarrhea. No urinary symptoms. She states the pain radiates to the right shoulder. She denies fevers. He does have a history of cirrhosis and gallstones. She was seen here in 2019 when they found the gallstones but they did not feel her pain at that time was due to the gallstones. She has also had a surgery for cecal volvulus about a year ago. Physical Examination: Vital signs reviewed. HEENT exam unremarkable. Heart is regular rate and rhythm without murmurs. Lungs are clear to auscultation. Abdomen is soft with tenderness in the right upper quadrant. There is a positive Cobb sign. Extremities reveal no edema. Skin exam normal. Neurologic exam normal. Test Results: White count 13.8. Sodium 129 chloride 96. Her total bilirubin is 2.8, direct bilirubin 0.35. Alkaline phosphatase 180, AST 106, ALT 48. Lipase 221. Right upper quadrant ultrasound reveals gallstones with a thickened wall and pericholecystic fluid. Emergency Department Course and Treatment: Patient was given morphine and Zofran for pain control. Her labs and ultrasound are consistent with cholecystitis. She will be given a dose of Zosyn. I discussed with Dr. Fontanez and the patient will be admitted to the hospital for surgical care Treatment Plan: [] Disposition: Admit Impression: Cholecystitis This note was generated with Med[employer] dictation software. It may contain incorrect words, spelling, and punctuation that were not noted in review of the chart prior to signing ED Disposition - Plan for ED Patient: Referrals: Trevor Guerra MD [Primary Care Provider] -
[2019-04-24 10:12] LABS: AST(SGOT) 106 U/L (15-37); Alanine Aminotransfer ALT/SGPT 48 U/L (13-56); Albumin, Serum 3.8 g/dL (3.2-5.0); Alkaline Phosphatase 180 U/L (45-117); Anion Gap 8 (5-15); BUN 9 mg/dL (7-18); Bilirubin, Direct 0.35 mg/dL (0.00-0.30); Calcium,Total 9.1 mg/dL (8.5-10.1); Chloride 96 mmol/L (98-107); Creatinine, Serum 0.82 mg/dL (0.55-1.02); EST Glomerular Filtration Rate 75 mL/min (>60); Est Glom Filt Rate - Afr Amer 91 mL/min (>60); Estimated Creatinine Clearance 55.31 ml/min; Globulin 4.9 g/dL (2.2-4.2); Glucose 119 mg/dL (74-106); Lipase 221 U/L (73-393); Protein, Total 8.7 g/dL (6.4-8.2); Sodium Level 129 mmol/L (136-145)
[2019-04-24 11:52] LABS: International Normalized Ratio 1.4; Prothrombin Time (Protime)PT. 16.7 SECONDS (11.7-14.9)
[2019-04-24 11:53] LABS: Partial Thromboplast Time 30.9 Seconds (24.1-36.2)
--- NOTE | 2019-04-24 13:02 | EKG12_ITS ---
Test Reason : Blood Pressure : / mmHG Vent. Rate : 091 BPM Atrial Rate : 091 BPM P-R Int : 144 ms QRS Dur : 064 ms QT Int : 342 ms P-R-T Axes : 045 052 051 degrees QTc Int : 420 ms Normal sinus rhythm Normal ECG Confirmed by VERONICA RODRIGUES, MALINDA ([id number]), editor at large KIYA DELGADO ([id number]) on 04/27/2019 11:56:52 AM Referred By: Maritza Fontanez Confirmed By:MALINDA MARTIN MD
[2019-04-24] MEDS: 0.9% Normal Saline 1,000 ML 130 ML IV ×2 (13:54→21:39)
[2019-04-24] MEDS: HYDROmorphone 0.5 MG/0.5 ML SYRINGE IV ×3 (13:55→19:46)
--- NOTE | 2019-04-24 15:36 | PCM.HP.STD ---
History of Present Illness Date of Admission: 04/24/19 The patient is a 63 year old F with a past medical history of alcoholic cirrhosis presented to the ER due to right upper quadrant pain which started last night about 11 PM. Patient states last time she ate was for breakfast and did not eat throughout the day because she was busy. Patient did have some nausea last night. Patient continues to have right upper quadrant pain. Patient had an ultrasound showed thickened gallbladder wall 3.5 mm pericholecystic fluid a common bile duct of 5.5 mm and cholelithiasis. Patient previously had an MRI and MRCP and CAT scan of her abdomen back in July 2018 which did show that she had small gallstones but she did not have any thickening of her gallbladder wall. Patient's ALT is normal AST is 106 patient's total bilirubin is 2.8 which is similar to previous bilirubins in the past. Patient child's class appears to be class A with 6 points; total bili between 2 and 3, albumin greater than 3.5, INR less than 1.7, ascites absent (per CT in July 2018), encephalopathy absent. Patient has continued on her spironolactone and lactulose per PCP she has not been able to get another GI specialist for her cirrhosis. Patient also has midline incision due to a cecal volvulus 12/2017. Past Medical History Past Medical History (Chronic Problems): Chronic Problems (Last Reviewed 08/19/18 @ 14:45 by Dawn Barron) History of partial colectomy (Chronic) 12/19/17 Hx of hysterectomy (Chronic) 2004 Cecal volvulus (Chronic) Clavicular fracture (Chronic) Left wrist fracture (Chronic) Alcohol abuse (Chronic) Subarachnoid hemorrhage following injury (Chronic) Medical History: Medical History (Last Reviewed 08/19/18 @ 14:45 by Dawn Barron) Hx of hysterectomy (Chronic) Z90.710 2004 Cecal volvulus (Chronic) K56.2 Clavicular fracture (Chronic) S42.009A Left wrist fracture (Chronic) S62.102A Alcohol abuse (Chronic) F10.10 Subarachnoid hemorrhage following injury (Chronic) Allergies No Known Allergies Allergy (Verified 04/24/19 09:07) Home Medications: Ambulatory Orders Medication Instructions Recorded Folic Acid 1 mg PO DAILY@0800 08/01/15 Lactulose [Chronulac] 30 gm PO BID 09/22/16 Spironolactone [Aldactone] 100 mg PO DAILY 12/19/17 Levothyroxine [Synthroid] 25 mcg PO DAILY 08/10/18 Multivitamins,Ther W-Minerals 1 tab PO DAILYCM 08/10/18 [Multivitamin With Minerals] Pantoprazole Sodium [Protonix] 40 mg PO DAILY 08/10/18 Surgical History: Surgical History (Last Reviewed 08/19/18 @ 14:45 by Dawn Barron) History of partial colectomy (Chronic) Z90.49 12/19/17 Surgical History: hysterectomy, tonsillectomy, - - . 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 Smoking Status: Never smoker - *Family History Maternal History Items: No pertinent history Paternal History Items: Heart Disease Review of Systems Constitutional: Reports: Anorexia Cardiovascular: Denies: Chest Pain Respiratory: Reports: Shortness of Breath - Due to abdominal pain Gastrointestinal: Reports: Abdominal Pain, Nausea VTE Information - Inpt Only VTE Present on Admission: Yes VTE Mechan Device Prophylaxis: SCD's VTE Pharm Prophylaxis ordered?: No Reason prophylaxis not ordered:: Treatment Not Indicated - Physical Exam Vitals/I&O's: Vital Signs Temp Pulse Resp BP Pulse Ox 99.3 F H 92 16 97/64 98 04/24/19 13:57 04/24/19 13:57 04/24/19 13:57 04/24/19 13:57 04/24/19 13:57 Oxygen Delivery Method Room Air Weight: 111 lb 11.2 oz Body Mass Index (BMI) 20.4 Intake and Output for Last 24 Hours 04/22/19 04/23/19 04/24/19 23:59 23:59 23:59 Intake Total 1050 / 1050 Balance 1050 / 1050 General: Alert, Oriented x3, Cooperative, No apparent distress HEENT: Atraumatic Lungs: Normal air movement Cardiovascular: Regular rate Abdomen: Soft, Non-Distended, Hernia - Right upper quadrant, equivocal rebound, voluntary guarding Extremities: No clubbing, No cyanosis, No edema Neurological: Cranial nerves II-XII grossly intact Psych/Mental Status: Normal Affect Laboratory Results 04/24/19 09:20: WBC 13.8 H, RBC 4.30, Hgb 14.7, Hct 43.6, MCV 101.4 H, MCH 34.2 H, MCHC 33.7, RDW Std Deviation 50.4 H, RDW Coeff of [place] 13.7, Plt Count 177, MPV 10.1, Immature Gran % (Auto) 0.700, Neut % (Auto) 86.3 H, Lymph % (Auto) 7.2 L, [place] % (Auto) 4.4, Eos % (Auto) 1.0, Baso % (Auto) 0.4, Absolute Neuts (auto) 11.9 H, Absolute Lymphs (auto) 0.99, Nucleated RBC % 0 04/24/19 09:20: Sodium 129 L, Potassium 5.0, Chloride 96 L, Carbon Dioxide 25.0, Anion Gap 8, BUN 9, Creatinine 0.82, Estim Creat Clear Calc 55.31, Est GFR (MDRD) Af Amer 91, Est GFR (MDRD) Non-Af 75, BUN/Creatinine Ratio 11.0, Glucose 119 H, Calcium 9.1, Total Bilirubin 2.80 H, Direct Bilirubin 0.35 H, AST 106 H, ALT 48, Alkaline Phosphatase 180 H, Total Protein 8.7 H, Albumin 3.8, Globulin 4.9 H, Lipase 221 04/24/19 11:30: PT 16.7 H, INR 1.4, APTT 30.9 Current Medications Hydromorphone HCl (Dilaudid Inj) 0.5 - 1 mg IV Q2H PRN PRN PRN Reason: Pain Score 1-10/10 Last Admin: 04/24/19 13:55 Dose: 0.5 mg Documented by: Sodium Chloride () 250 mls @ 15 mls/hr IV .[id number] PRN PRN Reason: Saline Flush Sodium Chloride () 1,000 mls @ 130 mls/hr IV .[id number] NIRAJ Last Admin: 04/24/19 13:54 Dose: 130 mls/hr Documented by: Piperacillin Sod/Tazobactam (Sod 3.375 gm/ Sodium Chloride) 50 mls @ 12.5 mls/hr IV Q8 NIRAJ Levothyroxine Sodium (Synthroid) 25 mcg PO DAILY@0600 [facility] Ondansetron HCl (Zofran) 4 mg IV Q8H PRN PRN PRN Reason: NAUSEA Pantoprazole Sodium (Protonix) 40 mg PO DAILY INRAJ Sodium Chloride () 10 - 40 ml IV UD PRN PRN Reason: SALINE FLUSH Spironolactone (Aldactone) 100 mg PO DAILYCM NIRAJ Assessment/Plan All Active Problems (Last Reviewed 08/19/18 @ 14:45 by Dawn Barron) Abdominal pain (Acute) Transaminitis (Acute) Abnormal CT of the abdomen (Acute) 63-year-old female with acute cholecystitis, history of cirrhosis child's class A Reviewed the anatomy with the patient and discussed the procedure: laparoscopic cholecystectomy with cholangiograms, possible open. Review risks including but not limited to bleeding which is well higher than normal due to the cirrhosis, infection, hernia, bile leak, retained gallstones requiring another procedure ERCP- Endoscopic Retrograde Cholangiopancreatography, injury to another organ (bile ducts, common bile duct, small bowel, etc.) which may require transfer to tertiary care facility and conversion to an open procedure. Also discussed with patient that due to her previous midline incision she is at high risk for having an open surgery will attempt to use Visiport technique. All questions were answered. We will plan for OR tomorrow early afternoon Hyponatremia giving patient normal saline Leukocytosis patient is on Zosyn 3.375 g IV every 8 for acute cholecystitis Type and screen due to patient's history of cirrhosis, did asked nurse to place 2 IVs Maritza Fontanez M.D. Pager: [phone] [facility] [address] [place] [address], [facility], [address] [place] [id number] Office: [phone] Code Visit Inpatient E&M: 76934 Init Hosp L2
--- NOTE | 2019-04-24 16:17 | PCM.CONS.GEN ---
Problem List (1) Abdominal pain Status: Acute Qualifiers: Abdominal location: lower abdomen, unspecified Qualified Code(s): R10.30 - Lower abdominal pain, unspecified (2) Transaminitis Status: Acute (3) Abnormal CT of the abdomen Status: Acute (4) History of partial colectomy Status: Chronic Comment: 12/19/17 (5) Hx of hysterectomy Status: Chronic Comment: 2004 (6) Cecal volvulus Status: Chronic (7) Clavicular fracture Status: Chronic Qualifiers: Encounter type: subsequent encounter Clavicle location: lateral end Laterality: unspecified laterality Fracture healing: with routine healing (8) Left wrist fracture Status: Chronic (9) Alcohol abuse Status: Chronic (10) Subarachnoid hemorrhage following injury Status: Chronic Qualifiers: Encounter type: sequela Loss of consciousness presence/duration: without LOC Qualified Code(s): S06.6X0S - Traumatic subarachnoid hemorrhage without loss of consciousness, sequela Reason for Consult History of Present Illness: The patient is a 63 year old F [] Past Medical History Past Medical History (Chronic Problems): Chronic Problems (Last Reviewed 08/19/18 @ 14:45 by Dawn Barron) History of partial colectomy (Chronic) 12/19/17 Hx of hysterectomy (Chronic) 2005 Cecal volvulus (Chronic) Clavicular fracture (Chronic) Left wrist fracture (Chronic) Alcohol abuse (Chronic) Subarachnoid hemorrhage following injury (Chronic) Medical History: Medical History (Last Reviewed 08/19/18 @ 14:45 by Dawn Barron) Hx of hysterectomy (Chronic) Z90.710 2005 Cecal volvulus (Chronic) K56.2 Clavicular fracture (Chronic) S42.009A Left wrist fracture (Chronic) S62.102A Alcohol abuse (Chronic) F10.10 Subarachnoid hemorrhage following injury (Chronic) Allergies No Known Allergies Allergy (Verified 04/24/19 09:07) Home Medications: Ambulatory Orders Medication Instructions Recorded Folic Acid 1 mg PO DAILY@0800 08/01/15 Lactulose [Chronulac] 30 gm PO BID 09/22/16 Spironolactone [Aldactone] 100 mg PO DAILY 12/19/17 Levothyroxine [Synthroid] 25 mcg PO DAILY 08/10/18 Multivitamins,Ther W-Minerals 1 tab PO DAILYCM 08/10/18 [Multivitamin With Minerals] Pantoprazole Sodium [Protonix] 40 mg PO DAILY 08/10/18 Surgical History: Surgical History (Last Reviewed 08/19/18 @ 14:45 by Dawn Barron) History of partial colectomy (Chronic) Z90.49 12/19/17 Surgical History: hysterectomy, tonsillectomy, - - . Psychiatric History: Depression [employer] History: No pertinent [employer] history Smoking Status: Never smoker - *Family History Maternal History Items: No pertinent history Paternal History Items: Heart Disease - Physical Exam Vitals/I&O's: Vital Signs Temp Pulse Resp BP Pulse Ox 99.3 F H 92 16 97/64 98 04/24/19 13:57 04/24/19 13:57 04/24/19 13:57 04/24/19 13:57 04/24/19 13:57 Oxygen Delivery Method Room Air Weight: 111 lb 11.2 oz Body Mass Index (BMI) 20.4 Intake and Output for Last 24 Hours 04/22/19 04/23/19 04/24/19 23:59 23:59 23:59 Intake Total 1050 / 1050 Balance 1050 / 1050 Laboratory Results 04/24/19 09:20: WBC 13.8 H, RBC 4.30, Hgb 14.7, Hct 43.6, MCV 101.4 H, MCH 34.2 H, MCHC 33.7, RDW Std Deviation 50.4 H, RDW Coeff of Maira 13.7, Plt Count 177, MPV 10.1, Immature Gran % (Auto) 0.700, Neut % (Auto) 86.3 H, Lymph % (Auto) 7.2 L, [place] % (Auto) 4.4, Eos % (Auto) 1.0, Baso % (Auto) 0.4, Absolute Neuts (auto) 11.9 H, Absolute Lymphs (auto) 0.99, Nucleated RBC % 0 04/24/19 09:20: Sodium 129 L, Potassium 5.0, Chloride 96 L, Carbon Dioxide 25.0, Anion Gap 8, BUN 9, Creatinine 0.82, Estim Creat Clear Calc 55.31, Est GFR (MDRD) Af Amer 91, Est GFR (MDRD) Non-Af 75, BUN/Creatinine Ratio 11.0, Glucose 119 H, Calcium 9.1, Total Bilirubin 2.80 H, Direct Bilirubin 0.35 H, AST 106 H, ALT 48, Alkaline Phosphatase 180 H, Total Protein 8.7 H, Albumin 3.8, Globulin 4.9 H, Lipase 221 04/24/19 11:30: PT 16.7 H, INR 1.4, APTT 30.9 Current Medications Hydromorphone HCl (Dilaudid Inj) 0.5 - 1 mg IV Q2H PRN PRN PRN Reason: Pain Score 1-10/10 Last Admin: 04/24/19 13:55 Dose: 0.5 mg Documented by: Sodium Chloride () 250 mls @ 15 mls/hr IV .[id number] PRN PRN Reason: Saline Flush Sodium Chloride () 1,000 mls @ 130 mls/hr IV .[id number] NIRAJ Last Admin: 04/24/19 13:54 Dose: 130 mls/hr Documented by: Piperacillin Sod/Tazobactam (Sod 3.375 gm/ Sodium Chloride) 50 mls @ 12.5 mls/hr IV Q8 NIRAJ Levothyroxine Sodium (Synthroid) 25 mcg PO DAILY@0600 [facility] Ondansetron HCl (Zofran) 4 mg IV Q8H PRN PRN PRN Reason: NAUSEA Pantoprazole Sodium (Protonix) 40 mg PO DAILY [facility] Sodium Chloride () 10 - 40 ml IV UD PRN PRN Reason: SALINE FLUSH Spironolactone (Aldactone) 100 mg PO DAILYCM NIRAJ Assessment/Plan All Active Problems (Last Reviewed 08/19/18 @ 14:45 by Dawn Barron) Abdominal pain (Acute) Transaminitis (Acute) Abnormal CT of the abdomen (Acute) 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
--- NOTE | 2019-04-24 16:28 | CON.PCM_ITS ---
Problem List (1) Acute cholecystitis Status: Acute (2) Alcoholic cirrhosis of liver Status: Chronic Qualifiers: Ascites presence: without ascites Qualified Code(s): K70.30 - Alcoholic cirrhosis of liver without ascites (3) History of alcohol abuse Status: Chronic (4) HTN (hypertension) Status: Chronic Qualifiers: Hypertension type: essential hypertension Qualified Code(s): I10 - Essential (primary) hypertension (5) GERD (gastroesophageal reflux disease) Status: Chronic Qualifiers: Esophagitis presence: esophagitis presence not specified Qualified Code(s): K21.9 - Gastro-esophageal reflux disease without esophagitis (6) Anxiety and depression Status: Chronic Reason for Consult Date of Consultation: 04/24/19 Reason for Consultation: Medical consultation History of Present Illness: The patient is a 63 y/o F w/ PMHx: GERD, HTN, Hypothyroidism, EtOH Cirrhosis w/ chronically elevated Bilirubin, LFTs noted to be sober (Michael Class A) who presents to the [facility] on 04/24/19 with history onset of severe 8-9 out of 10, dull in description, right upper quadrant pain doubt radiation with nausea starting approximately 11 PM the evening prior with last intake breakfast day prior with ongoing worsening right upper quadrant pain prompting eventual ED presentation. Patient denied any associated fevers and chills. She notes she has been having 3-4 bowel movements a day and these tend to be more firm. In the ED work-up included a gallbladder ultrasound with pericholecystic fluid as well as common bile duct measuring 5.5 mm with Colelithiasis evident, CBC with WBC 13.8, hemoglobin 14.7, platelet 177 with left shift, coags with INR 1.4, PTT 30.9, PT 16.7, CMP with sodium 129, chloride 96, glucose 119, total bilirubin 2.80, direct bilirubin 0.35, AST/ALT 106/48, alk phos 180, stable appearing LFTs and bilirubin elevation from prior, lipase 221, gallbladder ultrasound concurrently with no market evidence of ascites which has been noted in the past. In the ED patient ministered Zosyn, normal saline, Zofran and morphine. Hospitalist service consulted for medical consultation with planned operative intervention per discussion with surgeon in AM. Past Medical History Past Medical History (Chronic Problems): Chronic Problems (Last Reviewed 08/19/18 @ 14:45 by Dawn Barron) Alcoholic cirrhosis of liver (Chronic) History of alcohol abuse (Chronic) HTN (hypertension) (Chronic) GERD (gastroesophageal reflux disease) (Chronic) Anxiety and depression (Chronic) History of partial colectomy (Chronic) 12/19/17 Hx of hysterectomy (Chronic) 2004 Cecal volvulus (Chronic) Clavicular fracture (Chronic) Left wrist fracture (Chronic) Alcohol abuse (Chronic) Subarachnoid hemorrhage following injury (Chronic) Medical History: Medical History (Last Reviewed 08/19/18 @ 14:45 by Dawn Barron) Hx of hysterectomy (Chronic) Z90.710 2004 Cecal volvulus (Chronic) K56.2 Clavicular fracture (Chronic) S42.009A Left wrist fracture (Chronic) S62.102A Alcohol abuse (Chronic) F10.10 Subarachnoid hemorrhage following injury (Chronic) Allergies No Known Allergies Allergy (Verified 04/24/19 09:07) Home Medications: Ambulatory Orders Medication Instructions Recorded Folic Acid 1 mg PO DAILY@0800 08/01/15 Lactulose [Chronulac] 30 gm PO BID 09/22/16 Spironolactone [Aldactone] 100 mg PO DAILY 12/19/17 Levothyroxine [Synthroid] 25 mcg PO DAILY 08/10/18 Multivitamins,Ther W-Minerals 1 tab PO DAILYCM 08/10/18 [Multivitamin With Minerals] Pantoprazole Sodium [Protonix] 40 mg PO DAILY 08/10/18 Surgical History: Surgical History (Last Reviewed 08/19/18 @ 14:45 by Dawn Barron) History of partial colectomy (Chronic) Z90.49 12/19/17 Surgical History: hysterectomy, tonsillectomy, - - , colectomy status post cecal volvulus, hysterectomy, tonsillectomy. 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 Drugs: None - *Family History Maternal History Items: Heart Disease, Renal Disease - End-stage renal disease on peritoneal dialysis. Paternal History Items: Cancer - Throat cancer., Heart Disease - History of heart disease with IN status post PCI from description., Hypertension Review of Systems Constitutional: Reports: Anorexia, Malaise, Weakness, Fatigue. Denies: Chills, Fever, Weight Change HEENT: Denies: Head Aches, Sinus Congestion, Sinus Drainage Cardiovascular: Denies: Chest Pain, Palpitations Respiratory: Denies: Cough, Shortness of breath at rest, Sputum production Gastrointestinal: Reports: Abdominal Pain, Nausea. Denies: Vomiting Genitourinary: Denies: Dysuria Musculoskeletal: Reports: Joint Pain. Denies: Joint Tenderness Skin: Denies: Rash, Wounds Neurological: Denies: Numbness, Tingling, Focal weakness Psychiatric: Reports: Anxiety, Depression. Denies: Homicidal Ideations, Suicidal Ideations Hematologic/ Lymphatic: Reports: Easy Bruising, Easy Bleeding Patient Problems: Active and Suspected Problems (Last Reviewed 08/19/18 @ 14:45 by Dawn Barron) Acute cholecystitis (Acute) Subjective: Seated upright in the medical surgical bed, no acute distress, notes pain is improved with medications but still voluntary guarding and severe discomfort with any palpation or movements. Objective: Physical Examination: General: awake, alert, oriented x 3 and cooperative, seated upright in the medical surgical bed in no apparent distress but extreme discomfort still with movement and with abdominal palpation attempts. Skin: normal color, turgor, no icterus, cyanosis. HEENT: AT/NC, EOMI, PERRLA, moderately dry MM, no carotid bruits or JVD noted. Lungs: CTA bilaterally, moderate effort, moderate decrease BL bases, no rales, ronchi or wheezing. Heart: Regular rate and rhythm; no gallop, rub audible. Abdomen: soft, severe discomfort with any palpation of the right upper quadrant, voluntary guarding noted, some discomfort also with right lower quadrant palpation, decreased bowel sounds, difficult to assess HSM secondary to severity of pain but suggestive of positive HM. Extremities: no cyanosis, clubbing, or edema. Neurological: patient awake, alert, oriented x 3; cognitive function intact; pupils equally reactive to light and accomodation; cranial nerves II-XII grossly normal, moving all 4 extremities, no focal deficits, strength severely globally decrease secondary to acute complaints. Psychiatric: affect appears fatigued, uncomfortable with examination, no acute evidence of depressive or anxiety feelings. - Physical Exam Vitals/I&O's: Vital Signs Temp Pulse Resp BP Pulse Ox 99.3 F H 92 16 97/64 98 04/24/19 13:57 04/24/19 13:57 04/24/19 13:57 04/24/19 13:57 04/24/19 13:57 Oxygen Delivery Method Room Air Weight: 111 lb 11.2 oz Body Mass Index (BMI) 20.4 Intake and Output for Last 24 Hours 04/22/19 04/23/19 04/24/19 23:59 23:59 23:59 Intake Total 1050 / 1050 Balance 1050 / 1050 Laboratory Results 04/24/19 09:20: WBC 13.8 H, RBC 4.30, Hgb 14.7, Hct 43.6, MCV 101.4 H, MCH 34.2 H, MCHC 33.7, RDW Std Deviation 50.4 H, RDW Coeff of Maira 13.7, Plt Count 177, MPV 10.1, Immature Gran % (Auto) 0.700, Neut % (Auto) 86.3 H, Lymph % (Auto) 7.2 L, [place] % (Auto) 4.4, Eos % (Auto) 1.0, Baso % (Auto) 0.4, Absolute Neuts (auto) 11.9 H, Absolute Lymphs (auto) 0.99, Nucleated RBC % 0 04/24/19 09:20: Sodium 129 L, Potassium 5.0, Chloride 96 L, Carbon Dioxide 25.0, Anion Gap 8, BUN 9, Creatinine 0.82, Estim Creat Clear Calc 55.31, Est GFR (MDRD) Af Amer 91, Est GFR (MDRD) Non-Af 75, BUN/Creatinine Ratio 11.0, Glucose 119 H, Calcium 9.1, Total Bilirubin 2.80 H, Direct Bilirubin 0.35 H, AST 106 H, ALT 48, Alkaline Phosphatase 180 H, Total Protein 8.7 H, Albumin 3.8, Globulin 4.9 H, Lipase 221 04/24/19 11:30: PT 16.7 H, INR 1.4, APTT 30.9 Current Medications Hydromorphone HCl (Dilaudid Inj) 0.5 - 1 mg IV Q2H PRN PRN PRN Reason: Pain Score 1-10/10 Last Admin: 04/24/19 13:55 Dose: 0.5 mg Documented by: Sodium Chloride () 250 mls @ 15 mls/hr IV .[id number] PRN PRN Reason: Saline Flush Sodium Chloride () 1,000 mls @ 130 mls/hr IV .[id number] NIRAJ Last Admin: 04/24/19 13:54 Dose: 130 mls/hr Documented by: Piperacillin Sod/Tazobactam (Sod 3.375 gm/ Sodium Chloride) 50 mls @ 12.5 mls/hr IV Q8 NIRAJ Levothyroxine Sodium (Synthroid) 25 mcg PO DAILY@0600 [facility] Ondansetron HCl (Zofran) 4 mg IV Q8H PRN PRN PRN Reason: NAUSEA Pantoprazole Sodium (Protonix) 40 mg PO DAILY NIRAJ Sodium Chloride () 10 - 40 ml IV UD PRN PRN Reason: SALINE FLUSH Spironolactone (Aldactone) 100 mg PO DAILYCM [facility] Assessment/Plan All Active Problems (Last Reviewed 08/19/18 @ 14:45 by Dawn Barron) Abdominal pain (Acute) Transaminitis (Acute) Abnormal CT of the abdomen (Acute) Acute cholecystitis (Acute) The patient is a 63 y/o F w/ PMHx: GERD, HTN, Hypothyroidism, EtOH Cirrhosis w/ chronically elevated Bilirubin, LFTs noted to be sober (Michael Class A) who presents to the [facility] on 04/24/19 with history onset of right upper quadrant pain with nausea starting approximately 11 PM the evening prior with last intake breakfast day prior with ongoing worsening right upper quadrant pain prompting eventual ED presentation. 1. Acute cholecystitis: Patient mid to medical surgical service per general surgery, continued on IV Zosyn as well as maintenance IV fluids, n.p.o. status, planned operative intervention in a.m., LFTs and bilirubin similar to prior, plan repeat CMP and CBC in a.m., pain regimen, antiemetic regimen per surgery discretion. Surgical risk calculator given patient presentation with normal vital signs, normal renal function, age less than 65, high blood pressure on medication but controlled, alcoholic cirrhosis but no ascites within the last 30 days patient with an average serious complication risk compared to the population therefore agree with proceeding to operative intervention especially given patient benefit to risk and need for emergent surgery. 2. History of alcohol abuse, sober currently with alcoholic cirrhosis: We will need to assist patient upon discharge for more stable follow-up with gastroenterology, continued currently on spironolactone as well as lactulose, labs including bilirubin and LFTs appear similar to prior, repeat CMP in AM. Magnesium and phosphorus requested per anesthesiology, pending. 3. Hypertension: Per surgery continued on patient spironolactone, may consider holding if concern for further dehydration, currently on supplemental maintenance IV fluids, adding PRN IV hydralazine. 4. History of mechanical fall with subarachnoid hemorrhage: Resolved, stable. 5. History of cecal volvulus: Status post partial colectomy in 2018, stable. 6. Hypothyroidism: New patient home levothyroxine regimen. 7. GERD: Continue PPI. 8. DVT prophylaxis: Per surgery discretion but encourage SCDs, defer chemoprophylaxis given planned operative intervention. Code Visit Office Visits / Consults: [id number] IP Consult L4
[2019-04-24] MEDS: 0.9% Saline Lock 10 ML Syringe IV ×2 (16:59→19:46)
[2019-04-25] VITALS (16 sets, daily range): BP systolic 87–101; BP diastolic 52–83; PULSE 78–100; RESP 15–18; TEMP 36.8–37.6; O2SAT 94–98; BMI 20.4
[2019-04-25] MEDS: HYDROmorphone 0.5 MG/0.5 ML SYRINGE IV (01:37)
[2019-04-25 04:56] LABS: Absolute Lymphocyte Count 1.14 X10^3/uL (0.83-4.51); Absolute Neutrophil Count 6.5 X10^3/uL (2.0-7.7); Basophil# 0.02 X10^3/uL; Basophil% 0.2 % (0-1); Eosinophil# 0.09 X10^3/uL; Eosinophils% 1.1 % (0-5); Hematocrit 30.7 % (37-47); Hemoglobin 10.5 g/dL (12.0-15.0); Lymphocyte # 1.14 X10^3/ul (4.0); Lymphocyte % 13.6 % (19-41); Mean Corp Hgb Conc 34.2 g/dL (32-36); Mean Corpuscular Volume 102.3 fL (81-99); Mean Platelet Vol. 10.4 fl (6.2-12.0); Monocyte# 0.57 X10^3/uL; Monocyte% 6.8 % (0-10); NRBC Flagged by Analyzer 0 % (0-5); Neutrophil % 77.8 % (47-70); POSITIVE COUNT YES; Platelet Count 91 K/mm3 (150-450); RBC Distribution Width CV 13.7 % (11.6-14.6); RBC Distribution Width SD 51.3 fl (35.1-43.9); White Blood Count 8.4 K/mm3 (4.4-11.0)
[2019-04-25 05:28] LABS: AST(SGOT) 47 U/L (15-37); Alanine Aminotransfer ALT/SGPT 26 U/L (13-56); Albumin, Serum 2.5 g/dL (3.2-5.0); Alkaline Phosphatase 98 U/L (45-117); Anion Gap 6 (5-15); BUN 7 mg/dL (7-18); BUN/Creat Ratio 13.2 RATIO (10-20); Bilirubin, Direct 1.05 mg/dL (0.00-0.30); Calcium,Total 7.8 mg/dL (8.5-10.1); Chloride 104 mmol/L (98-107); Creatinine, Serum 0.53 mg/dL (0.55-1.02); EST Glomerular Filtration Rate 124 mL/min (>60); Est Glom Filt Rate - Afr Amer 149 mL/min (>60); Estimated Creatinine Clearance 85.93 ml/min; Globulin 3.3 g/dL (2.2-4.2); Glucose 84 mg/dL (74-106); Magnesium 1.8 mg/dL (1.6-2.6); Phosphorus 2.8 mg/dL (2.5-4.9); Potassium 3.6 mmol/L (3.5-5.1); Protein, Total 5.8 g/dL (6.4-8.2); Sodium Level 134 mmol/L (136-145); Thyroid Stim Hormone (TSH) 5.57 uIU/mL (0.358-3.74)
[2019-04-25 05:38] LABS: International Normalized Ratio 1.7; Prothrombin Time (Protime)PT. 19.5 SECONDS (11.7-14.9)
[2019-04-25 05:39] LABS: Partial Thromboplast Time 39.3 Seconds (24.1-36.2)
--- NOTE | 2019-04-25 08:19 | PCM.PN.SRG ---
Patient Problems: Active and Suspected Problems (Last Reviewed 08/19/18 @ 14:45 by Dawn Barron) Acute cholecystitis (Acute) Subjective: Patient still is right upper quadrant pain controlled with medication plan for lap cesia about 1230 today - Physical Exam Vitals/I&O's: Vital Signs Temp Pulse Resp BP Pulse Ox 98.9 F 79 18 101/63 97 04/25/19 07:46 04/25/19 07:46 04/25/19 07:46 04/25/19 07:46 04/25/19 07:46 Oxygen Delivery Method Room Air Weight: 111 lb 11.2 oz Body Mass Index (BMI) 20.4 Intake and Output for Last 24 Hours 04/23/19 04/24/19 04/25/19 23:59 23:59 23:59 Intake Total 2049 / 2049 50 / 50 Output Total 200 / 450 575 / 575 Balance 1850 / 1600 -525 / -525 General: Alert, Oriented x3, Cooperative, No apparent distress Lungs: Normal air movement Cardiovascular: Regular rate Abdomen: Soft, Non-Distended, Tender - Right upper quadrant, no peritoneal signs Laboratory Results 04/24/19 09:20: WBC 13.8 H, RBC 4.30, Hgb 14.7, Hct 43.6, MCV 101.4 H, MCH 34.2 H, MCHC 33.7, RDW Std Deviation 50.4 H, RDW Coeff of Maira 13.7, Plt Count 177, MPV 10.1, Immature Gran % (Auto) 0.700, Neut % (Auto) 86.3 H, Lymph % (Auto) 7.2 L, [place] % (Auto) 4.4, Eos % (Auto) 1.0, Baso % (Auto) 0.4, Absolute Neuts (auto) 11.9 H, Absolute Lymphs (auto) 0.99, Nucleated RBC % 0 04/24/19 09:20: Sodium 129 L, Potassium 5.0, Chloride 96 L, Carbon Dioxide 25.0, Anion Gap 8, BUN 9, Creatinine 0.82, Estim Creat Clear Calc 55.31, Est GFR (MDRD) Af Amer 91, Est GFR (MDRD) Non-Af 75, BUN/Creatinine Ratio 11.0, Glucose 119 H, Calcium 9.1, Total Bilirubin 2.80 H, Direct Bilirubin 0.35 H, AST 106 H, ALT 48, Alkaline Phosphatase 180 H, Total Protein 8.7 H, Albumin 3.8, Globulin 4.9 H, Lipase 221 04/24/19 11:30: PT 16.7 H, INR 1.4, APTT 30.9 04/25/19 04:40: Blood Type A POSITIVE, Antibody Screen NEGATIVE 04/25/19 04:40: WBC 8.4, RBC 3.00 L, Hgb 10.5 L, Hct 30.7 L, MCV 102.3 H, MCH 35.0 H, MCHC 34.2, RDW Std Deviation 51.3 H, RDW Coeff of Maira 13.7, Plt Count 91 L, MPV 10.4, Immature Gran % (Auto) 0.500, Neut % (Auto) 77.8 H, Lymph % (Auto) 13.6 L, [place] % (Auto) 6.8, Eos % (Auto) 1.1, Baso % (Auto) 0.2, Absolute Neuts (auto) 6.5, Absolute Lymphs (auto) 1.14, Nucleated RBC % 0 04/25/19 04:40: Sodium 134 L, Potassium 3.6, Chloride 104, Carbon Dioxide 24.0, Anion Gap 6, BUN 7, Creatinine 0.53 L, Estim Creat Clear Calc 85.93, Est GFR (MDRD) Af Amer 149, Est GFR (MDRD) Non-Af 124, BUN/Creatinine Ratio 13.2, Glucose 84, Calcium 7.8 L, Phosphorus 2.8, Magnesium 1.8, Total Bilirubin 2.50 H, Direct Bilirubin 1.05 H, AST 47 H, ALT 26, Alkaline Phosphatase 98, Total Protein 5.8 L, Albumin 2.5 L, Globulin 3.3, TSH 5.57 H 04/25/19 04:40: PT 19.5 H, INR 1.7, APTT 39.3 H Current Medications Hydromorphone HCl (Dilaudid Inj) 0.5 - 1 mg IV Q2H PRN PRN PRN Reason: Pain Score 1-10/10 Last Admin: 04/25/19 01:37 Dose: 0.5 mg Documented by: Sodium Chloride () 250 mls @ 15 mls/hr IV .[id number] PRN PRN Reason: Saline Flush Sodium Chloride () 1,000 mls @ 130 mls/hr IV .[id number] [facility] Last Admin: 04/24/19 21:39 Dose: 130 mls/hr Documented by: Piperacillin Sod/Tazobactam (Sod 3.375 gm/ Sodium Chloride) 50 mls @ 12.5 mls/hr IV Q8 [facility] Last Admin: 04/25/19 05:38 Dose: 12.5 mls/hr Documented by: Levothyroxine Sodium (Synthroid) 25 mcg PO DAILY@0600 [facility] Last Admin: 04/25/19 06:57 Dose: Not Given Documented by: Ondansetron HCl (Zofran) 4 mg IV Q8H PRN PRN PRN Reason: NAUSEA Pantoprazole Sodium (Protonix) 40 mg PO DAILY [facility] Sodium Chloride () 10 - 40 ml IV UD PRN PRN Reason: SALINE FLUSH Last Admin: 04/24/19 19:46 Dose: 10 ml Documented by: [facility]) [facility] Necessity - Tobacco Use Smoking Status: Never smoker Tobacco Use: Non-smoker Assessment/Plan All Active Problems (Last Reviewed 08/19/18 @ 14:45 by Dawn Barron) Abdominal pain (Acute) Transaminitis (Acute) Abnormal CT of the abdomen (Acute) Acute cholecystitis (Acute) 63-year-old female with acute cholecystitis, history of cirrhosis child's class A/early B Plan for laparoscopic cholecystectomy with cholangiograms possible open for about 1230 today Hyponatremia improved Leukocytosis patient is on Zosyn 3.375 g IV every 8 for acute cholecystitis?white blood cell count within normal limits Type and cross for 1 unit of FFP Maritza Fontanez M.D. Pager: [phone] [facility] [address] [place] [address], [facility], [address] [place] [address] Office: [phone]
--- NOTE | 2019-04-25 09:16 | PCM.PN.HOSP ---
Patient Problems: Active and Suspected Problems (Last Reviewed 08/19/18 @ 14:45 by Dawn Barron) Acute cholecystitis (Acute) Subjective: Feeling okay, has right upper quadrant abdominal pain Vitals/I&O's: Vital Signs Temp Pulse Resp BP Pulse Ox 99.3 F H 87 18 97/66 96 04/25/19 08:44 04/25/19 08:44 04/25/19 08:44 04/25/19 08:44 04/25/19 08:44 Oxygen Delivery Method Room Air Weight: 111 lb 11.2 oz Body Mass Index (BMI) 20.4 Intake and Output for Last 24 Hours 04/23/19 04/24/19 04/25/19 23:59 23:59 23:59 Intake Total 2049 / 2049 50 / 50 Output Total 200 / 450 575 / 575 Balance 1850 / 1600 -525 / -525 General: Alert, Oriented x3, Cooperative, No apparent distress HEENT: Atraumatic, PERRLA, EOMI, Normocephalic Oral: Moist Mucosa Neck: Supple, No JVD Lungs: Clear to auscultation, Normal air movement, No rhonchi, No wheeze, No rales Cardiovascular: Regular rate, Regular Rhythm, Normal S1, Normal S2, No murmurs Abdomen: Soft, Non-Distended, No Hepato-splenomegaly, Tender - Right upper quadrant Extremities: No edema, Capillary Refill Less than 3 Seconds Skin: No rashes, No breakdown Neurological: Neuro grossly intact, Sensory exam intact to light touch and pain Psych/Mental Status: Normal Affect, Appropriate Laboratory Results 04/24/19 09:20: WBC 13.8 H, RBC 4.30, Hgb 14.7, Hct 43.6, MCV 101.4 H, MCH 34.2 H, MCHC 33.7, RDW Std Deviation 50.4 H, RDW Coeff of Maira 13.7, Plt Count 177, MPV 10.1, Immature Gran % (Auto) 0.700, Neut % (Auto) 86.3 H, Lymph % (Auto) 7.2 L, [place] % (Auto) 4.4, Eos % (Auto) 1.0, Baso % (Auto) 0.4, Absolute Neuts (auto) 11.9 H, Absolute Lymphs (auto) 0.99, Nucleated RBC % 0 04/24/19 09:20: Sodium 129 L, Potassium 5.0, Chloride 96 L, Carbon Dioxide 25.0, Anion Gap 8, BUN 9, Creatinine 0.82, Estim Creat Clear Calc 55.31, Est GFR (MDRD) Af Amer 91, Est GFR (MDRD) Non-Af 75, BUN/Creatinine Ratio 11.0, Glucose 119 H, Calcium 9.1, Total Bilirubin 2.80 H, Direct Bilirubin 0.35 H, AST 106 H, ALT 48, Alkaline Phosphatase 180 H, Total Protein 8.7 H, Albumin 3.8, Globulin 4.9 H, Lipase 221 04/24/19 11:30: PT 16.7 H, INR 1.4, APTT 30.9 04/25/19 04:40: Blood Type A POSITIVE, Antibody Screen NEGATIVE 04/25/19 04:40: WBC 8.4, RBC 3.00 L, Hgb 10.5 L, Hct 30.7 L, MCV 102.3 H, MCH 35.0 H, MCHC 34.2, RDW Std Deviation 51.3 H, RDW Coeff of Maira 13.7, Plt Count 91 L, MPV 10.4, Immature Gran % (Auto) 0.500, Neut % (Auto) 77.8 H, Lymph % (Auto) 13.6 L, [place] % (Auto) 6.8, Eos % (Auto) 1.1, Baso % (Auto) 0.2, Absolute Neuts (auto) 6.5, Absolute Lymphs (auto) 1.14, Nucleated RBC % 0 04/25/19 04:40: Sodium 134 L, Potassium 3.6, Chloride 104, Carbon Dioxide 24.0, Anion Gap 6, BUN 7, Creatinine 0.53 L, Estim Creat Clear Calc 85.93, Est GFR (MDRD) Af Amer 149, Est GFR (MDRD) Non-Af 124, BUN/Creatinine Ratio 13.2, Glucose 84, Calcium 7.8 L, Phosphorus 2.8, Magnesium 1.8, Total Bilirubin 2.50 H, Direct Bilirubin 1.05 H, AST 47 H, ALT 26, Alkaline Phosphatase 98, Total Protein 5.8 L, Albumin 2.5 L, Globulin 3.3, TSH 5.57 H 04/25/19 04:40: PT 19.5 H, INR 1.7, APTT 39.3 H Current Medications Hydromorphone HCl (Dilaudid Inj) 0.5 - 1 mg IV Q2H PRN PRN PRN Reason: Pain Score 1-10/10 Last Admin: 04/25/19 01:37 Dose: 0.5 mg Documented by: Sodium Chloride () 250 mls @ 15 mls/hr IV .[id number] PRN PRN Reason: Saline Flush Sodium Chloride () 1,000 mls @ 130 mls/hr IV .[id number] [facility] Last Admin: 04/24/19 21:39 Dose: 130 mls/hr Documented by: Piperacillin Sod/Tazobactam (Sod 3.375 gm/ Sodium Chloride) 50 mls @ 12.5 mls/hr IV Q8 [facility] Last Admin: 04/25/19 05:38 Dose: 12.5 mls/hr Documented by: Levothyroxine Sodium (Synthroid) 25 mcg PO DAILY@0600 [facility] Last Admin: 04/25/19 06:57 Dose: Not Given Documented by: Ondansetron HCl (Zofran) 4 mg IV Q8H PRN PRN PRN Reason: NAUSEA Pantoprazole Sodium (Protonix) 40 mg PO DAILY [facility] Sodium Chloride () 10 - 40 ml IV UD PRN PRN Reason: SALINE FLUSH Last Admin: 04/24/19 19:46 Dose: 10 ml Documented by: [facility] ([facility]) [facility] Vital Signs/Narrative: Vital Signs Temp Pulse Resp BP Pulse Ox 04/25/19 08:44 99.3 F H 87 18 97/66 96 04/25/19 07:46 98.9 F 79 18 101/63 97 04/25/19 07:41 98.9 F 79 18 101/63 97 Medical Necessity - Tobacco Use Smoking Status: Never smoker Tobacco Use: Non-smoker Assessment/Plan All Active Problems (Last Reviewed 08/19/18 @ 14:45 by Dawn Barron) Abdominal pain (Acute) Transaminitis (Acute) Abnormal CT of the abdomen (Acute) Acute cholecystitis (Acute) 1. Acute cholecystitis -Plan for laparoscopic cholecystectomy today by surgery -n.p.o. -Continue with Zosyn 2. History of alcoholic cirrhosis -Continue with her lactulose and her Aldactone -Continue to monitor her LFTs 3. HTN -Blood pressures are stable, continue with IV fluids and her home medications -We will continue to monitor and can use hydralazine as necessary 4. Hypothyroidism -Continue with her home Synthroid, her TSH is elevated above 5 but this could be an acute reaction -She needs to have outpatient follow-up of her TSH and possible increased titration of her Synthroid 5. GERD -Stable -Continue with Protonix DVT: SCDs Code Visit Inpatient E&M: 74540 Subs Hosp L2
--- NOTE | 2019-04-25 10:40 | CASEMGMT ---
RN CM Face to Face with patient for initial transition planning/care coordination assessment. RN CM introduced self and role at [facility]. Patient lying in bed, alert and oriented. Patient willing to participate in assessment and is able to answer all questions appropriately. Care providers, pharmacy, and demographics verified. Patient wishes to discharge home, denies need for home health at this time. Patient states she has no further needs or concerns at this time. CM to follow for discharge planning needs that may arise. PCP: Charlie Specialists: None Preferred Pharmacy: [facility] Insurance: None, patient states she is working on getting it back. Prescription Benefit: none Living Will/HPOA: yes, son Ender Guzmán LNOK: son Living Arrangements: Patient lives in 2 story home with son occasionally staying when home from school. Patient is independent and able to ambulate stairs. Transportation: self/son DME/HHC: Patient denies any DME in the home. Patient has had [facility] in the past. Disposition Plan: Patient to discharge home with family support and follow-up plans in place. Angelina TAYLOR, RN, CM
--- NOTE | 2019-04-25 11:48 | CASEMGMT ---
Social Work Note Pt is listed as self-pay. Per PFS notes, pt was provided information on SPDP and HCAP. PFS also called pt to discuss self-pay and assistance but pt requested to be called later this afternoon. PFS to call pt later today. Angelina Ocasio UNDERCOAT SPRAYER, SUPERVISOR FELTING
[2019-04-25] MEDS: Lactated Ringers 1,000 ML 100 ML IV ×2 (12:00→14:14)
--- NOTE | 2019-04-25 12:00 | GALL_PTH ---
PATIENT: RADHA FALLON LOC: MS3 U#:[id number] AGE/SX: 63/F ROOM: VT322 RE04/24/[address]: Dr. Cody Clifton MD : [id number] BED: 1 DIS: 04/25/2019 SPEC #: [id number] RECD: 04/25/19 14:28 STATUS: FLO DINH #: [id number] KELLIE: 04/25/19 12:[address]: Maritza Fontanez DEPT: SURGICAL PATHOLOGY RECD BY: Star Bolaños ENTERED: 04/26/19 13:10 SP TYPE: GALLBLADDE KAREEN DR: MD Dr. Trevor Juarez MD Dr. Nicholas F Kotsonis, MD Tissues: Gallbladder, NOS Procedures: Surgery Specimen Level III HEADER OPERATION: Laparoscopic cholecystectomy with IOC PRE-OP DIAGNOSIS: Acute cholecystitis TISSUE SUBMITTED: Gallbladder MICROSCOPIC DIAGNOSIS Gallbladder, cholecystectomy: Chronic cholecystitis and cholelithiasis. Benign pericystic lymph node. AM:ana 04/27/19 MICROSCOPIC DESCRIPTION Slides are reviewed. GROSS DESCRIPTION Received is one container labeled with the patient's name and designated gallbladder. The specimen consists of a previously opened gallbladder measuring 7 cm in length and up to 2.5 cm in diameter. The external surface is pink-alvarado, smooth and glistening for the most part. Focally it is granular, hemorrhagic and contains cautery artifact. The gallbladder contains a small amount of hemorrhagic bile and multiple black stones measuring in aggregate 2 x 0.5 x 0.2 cm and 0.1 to 0.3 cm in greatest dimension. The mucosa is bile-stained and without any mass lesions. The gallbladder wall measures up to 0.2 cm in thickness. Director Speech Language sections from the gallbladder and the cystic duct are submitted in one cassette. / SJ:ana 04/26/19 TC:3 CPT: 04026
--- NOTE | 2019-04-25 12:00 | RAD_ITS ---
CLINICAL HISTORY: Female, 63 years old. Laparoscopic cholecystectomy in operating room Cholangiogram in operating room Comparison: Right upper quadrant ultrasound from 04/24/2019 FLUOROSCOPY TIME (if supplied): (59) /seconds Findings/ IMPRESSION: Cine and multiple spot fluoroscopic images demonstrate contrast filling of the gallbladder which demonstrates multiple intraluminal filling defects consistent with cholelithiasis. The cystic and common bile duct demonstrated no apparent filling defects and are nondilated. Electronically Signed: Artur Spears, at 2:30 EST Tel , Service support , RAD/Cholangiogram/ O R,Initial
[2019-04-25] MEDS: Bupivacaine Mpf 0.5% 30 ML VIAL (13:20)
--- NOTE | 2019-04-25 13:31 | OP.PCM_ITS ---
Report of Operation Date of Procedure: 04/25/19 Pre-Operative Diagnosis: Acute cholecystitis, cirrhosis Post-Operative Diagnosis: Same Surgery/Procedure Performed:: Laparoscopic cholecystectomy with cholangiograms bus monitor: Rajendra Wells Type of Anesthesia:: General/Supplemental Anesthesiologist: Bola Shine Special Medications: Zosyn 3.375 g IV every 8 hours given on the floor for acute cholecystitis Specimen's removed: Gallbladder Estimated Blood Loss (mL): 50 cc Fluids Replaced: 800 cc Description of Procedure: Indications this is a 63 year-old female who developed abdominal pain/nausea/vomiting and on workup was found to have acute cholecystitis, cholelithiasis, with a normal common bile duct, past medical history for alcoholic cirrhosis with a normal elevated total bili around 2-3. She was given 1 unit of FFP prior to procedure laparoscopic cholecystectomy was elected. Description procedure: The patient was placed on operating table in supine position. General Anesthesia was induced. A timeout was completed verifying correct patient, procedure, site, position and special equipment prior to beginning procedure. The abdomen was prepped and draped in usual sterile fashion. Visiport technique was used to enter her into the abdomen in the left upper quadrant after incision was made with a 15 blade scalpel. Entry into the peritoneum was confirmed visually and no bowel was noted in the vicinity of the incision. The abdomen was insufflated with carbon dioxide to a pressure of 12-15 mmHg. Patient tolerated insufflation well. The laparoscope was then inserted and abdomen inspected. No injuries from initial trocar placement were noted. Additional trochars were then inserted in the following locations Fragoso trocar in the supraumbilical, and 2 more 5 mm trochars along the right costal margin. There was cloudy yellowish-green fluid in the abdomen which was suctioned and sent for culture. The liver was nodular consistent with cirrhosis. The gallbladder was noted to be more posterior/lateral in the normal position more anteriorly. The table is placed in reverse Trendelenburg position with the right side up. The dome of the gallbladder was grasped with atraumatic grasper passed through the lateral port and retracted over the dome of the liver. Infundibulum was then grasped with atraumatic grasper through the midclavicular port and retracted to the right lower quadrant. Due to the chronic inflammation of the gallbladder the wall did tear with normal use of graspers for traction. Multiple tiny gallstones were retrieved with suction as well as the 10 mm suction. This maneuver exposed Calot's triangle. The peritoneum overlying the gallbladder infundibulum was then incised and cystic duct and artery identified and circumferentially dissected. Jerez catheter was used for cholangiograms. The cholangiogram showed good filling of the common bile duct with no filling defects-due to the more posterior position of the gallbladder is difficult to get all the way across the gallbladder without injuring the liver, so contrast did fill into the gallbladder with a small amount going into the duodenum, good filling of the right and left bile ducts as well. The cystic duct and artery were then doubly clipped and divided close to the gallbladder. The gallbladder then dissected from its peritoneal attachments by electrocautery. The argon beam was used on the gallbladder fossa. The gallbladder fossa was copiously irrigated and suctioned for gallstones. FloSeal was also placed gallbladder fossa. Hemostasis was checked and assured and the gallbladder and was removed using the endoscopic retrieval bag through the umbilical port. The gallbladder is passed off table as specimen. There is no evidence of bleeding from the gallbladder fossa or cystic artery leakage of bile from the cystic duct stump. Secondary trochars removed under direct vision. No bleeding was noted the trocar sites. The laparoscope was withdrawn and umbilical trocar removed. The abdomen was allowed to collapse. The fascia of the 12 mm trocar was closed with a [id number] 0 Vicryl suture. The skin was closed with sutures of 4-0 Monocryl and Steri-Strips. The orogastric tube was removed and the patient was extubated. The patient tolerated procedure well and was taken to the postanesthesia care unit in stable condition. - Complications none - Admit VTE Documentation VTE Present on Admission: Yes VTE Mechan Device Prophylaxis: SCD's
--- NOTE | 2019-04-25 14:52 | PCM.DC.GB ---
Discharge Diet: Light diet - advance as tolerated Discharge Activity: May not drive while taking narcotic pain medications. May shower in (days): 1 Lifting Restrictions: No lifting greater than 20 pounds x 2 weeks Call your doctor if your incision/area has: Continuous Slow Oozing, Sudden Increased Bleeding, Increased Pain/ Swelling, Increased Redness, Foul Smelling Discharge, Swelling at the incision site Call your doctor if you observe: Fever of 101 or Higher Remove Dressing in (days):: 1 - Discharge exam for 7 to 10 days then drop off in 10 days okay to remove Allergies/Adverse Reactions: Allergies No Known Allergies Allergy (Verified 04/24/19 09:07) Medications to take at Discharge Folic Acid 1 mg PO DAILY@0800 08/01/15 Lactulose [Chronulac] 30 gm PO BID 09/22/16 Spironolactone [Aldactone] 100 mg PO DAILY 12/19/17 Levothyroxine [Synthroid] 25 mcg PO DAILY 08/10/18 Multivitamins,Ther W-Minerals [Multivitamin With Minerals] 1 tab PO DAILYCM 08/10/18 Pantoprazole Sodium [Protonix] 40 mg PO DAILY 08/10/18 Oxycodone [Oxyir] 5 - 10 mg PO Q6H PRN PRN 4 Days #20 tab 04/25/19 The following prescriptions were given: Oxycodone [Oxyir] 5 - 10 mg PO Q6H PRN PRN 4 Days #20 tab PRN Reason: Pain Score 6-10/10 Transmission Status: Received by [facility]/pharmacy #[id number] Primary Care Physician: Trevor Guerra MD [Primary Care Provider] - Test Results: Test results from this visit will be discussed in further detail at your follow-up appointment, if applicable. Please Follow Up With: Maritza Fontanez MD - After 5:00 on the weekends call [phone] When: call for f/u in 1-2 weeks Proposed Discharge Date: 04/25/19
[2019-04-25] MEDS: Pantoprazole Sodium 40 MG Tablet PO (18:02)
[2019-04-25] MEDS: Spironolactone 50 MG Tablet 100 MG PO (18:02)
--- NOTE | 2019-04-26 15:53 | CASEMGMT ---
Case Management DC F/u Call: DC Date: 04/25/2019 DC Diagnosis: Pre-Operative Diagnosis: Acute cholecystitis, cirrhosis Post-Operative Diagnosis: Same Surgery/Procedure Performed:: Laparoscopic cholecystectomy with cholangiograms DC Disposition: Home Lace/Strata: 12/21 Called patient cell phone listed on demographics, patient answered, this personal lines underwriter introduced self and role. Patient states is sore and taking it easy. Made a f/u call with surgeon for next week. Has an appointment scheduled with Dr Guerra 05/03/2019 at 1120. Confirmed filled her DC pain medication. Denies any questions, issues or concerns with [facility], medications or f/u. Thanked patient for choosing care here at [facility] and ended conversation. Hazel Solano RNCM
== END 2019-04-25 18:31 | disposition home or self-care (01) | DRG 418 ==
LOC: ED 09:25 → MS3 12:09
PROVIDERS: Anesthesiology; Admitting Provider Surgery; Emergency Provider Emergency Medicine; Family Provider Family Medicine; PCP Family Medicine; Referring Provider Surgery; Visit Provider Family Medicine
PROC: 0FT44ZZ Resection of Gallbladder, Percutaneous Endoscopic Approach (ICD-10-PCS; CPT 47610; principal; 2019-04-25 11:40)
DX: K80.00 Calculus of gallbladder with acute cholecystitis without obstruction (principal); E87.1 Hypo-osmolality and hyponatremia; K70.30 Alcoholic cirrhosis of liver without ascites; I10 Essential (primary) hypertension; E03.9 Hypothyroidism, unspecified; K21.9 Gastro-esophageal reflux disease without esophagitis; Z90.49 Acquired absence of other specified parts of digestive tract; Z87.19 Personal history of other diseases of the digestive system
CPT/HCPCS: 36415; 74300; 76000; 76705; 80048; 80076; 83690; 83735; 84100; 84443; 85025; 85610; 85730; 86850; 86900; 86901; 87070; 87075; 87205; 88304; 93005; 99284; J7030; J7040; J7120; P9017; A4216; J1610; J2405

== ENCOUNTER 2019-08-31 16:34 | Emergency (ER) | payer SELFPAY ==
[2019-04-25 07:46] VITALS: BMI 20.4
[2019-08-31] VITALS (14 sets, daily range): BP systolic 121–147; BP diastolic 64–87; PULSE 106–129; RESP 15–24; TEMP 36.9; O2SAT 86–98; BMI 20.9
--- NOTE | 2019-08-31 16:43 | CT_ITS ---
We are attempting to reach an attending provider to discuss findings. An addendum with communication details will be sent when the communication is complete. STUDY: CT BRAIN WITHOUT CONTRAST REASON FOR EXAM: Female, 64 years old. Unequal pupils/stroke RADIATION DOSAGE (If Supplied By Facility): CTDIvol = ( 44.99 ) mGy, DLP = ( 745.49 ) mGycm TECHNIQUE: Transaxial CT imaging of the brain was performed without administration of intravenous contrast material. Individualized dose optimization techniques were used for this CT. COMPARISON: Head CT dated September 22, 2016 FINDINGS: Moderate soft tissue swelling and subcutaneous hemorrhage is present in the left mid facial region. The left maxillary sinus completely opacified with mixed density mucus material and small amounts of hemorrhage due to a mildly comminuted fracture of the posterior wall of the left maxillary sinus in addition to a small buckle fracture of the floor of the left orbit. Normal calvarium. There is mild cerebral atrophy with widening of the extra-axial spaces and ventricular dilatation. There are areas of decreased attenuation within the white matter tracts of the supratentorial brain, consistent with microvascular disease changes. Normal basal ganglia and thalami. Normal brainstem. Normal cerebellum. There is no intracranial hemorrhage. 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 There are no findings of an acute ischemic infarction. Normal visualized paranasal sinuses. CT/Brain/Head without Contrast IMPRESSION: 1. Chronic ischemic and involutional changes of the brain. 2. Moderate soft tissue swelling and subcutaneous hemorrhage is present in the left mid facial region. The left maxillary sinus completely opacified with mixed density mucus material and small amounts of hemorrhage due to a mildly comminuted fracture of the posterior wall of the left maxillary sinus in addition to a small buckle fracture of the floor of the left orbit Electronically Signed: Chiki Huerta MD at 17:13 EDT , Service support ,
--- NOTE | 2019-08-31 16:43 | EKG12_ITS ---
Test Reason : STROKE Blood Pressure : / mmHG Vent. Rate : 125 BPM Atrial Rate : 127 BPM P-R Int : 154 ms QRS Dur : 078 ms QT Int : 322 ms P-R-T Axes : 064 055 038 degrees QTc Int : 464 ms Sinus tachycardia with Premature atrial complexes Nonspecific ST abnormality Abnormal ECG Confirmed by ELSY OWENS ([id number]), sound editor KIYA DELGADO ([id number]) on 09/05/2019 1:24:04 PM Referred By: RISHABH Confirmed By:ELSY OWENS
--- NOTE | 2019-08-31 16:44 | ED.DCSUM_ITS ---
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 Estimated time of onset was 1600. Unknown if the patient had any preceding symptoms. EMS stated that somebody told them stroke-like symptoms just before hand but they no know details about this, neither did the son, who also did not know if or when she last drank alcohol, or if that was the reason she has cirrhosis. The EMR shows a history of alcohol abuse. Again, it is unknown when or if she had preceding stroke symptoms before the seizure. She has never had a seizure disorder. The son last spoke with her 2 hours prior to the incident, 1400, which so far is the last known well. (This history was obtained a little later.) - Past Medical History (1) Alcohol abuse Status: Chronic (2) Alcoholic cirrhosis of liver Status: Chronic (3) Anxiety and depression Status: Chronic (4) GERD (gastroesophageal reflux disease) Status: Chronic (5) HTN (hypertension) Status: Chronic (6) Subarachnoid hemorrhage following injury Status: Chronic Past Medical History - Allergies and Home Meds Allergies/Adverse Reactions: Allergies No Known Allergies Allergy (Verified 08/31/19 17:01) Primary Care Physician: Trevor Guerra MD [Primary Care Provider] - Surgical History: hysterectomy, tonsillectomy, - - , colectomy status post cecal volvulus, hysterectomy, tonsillectomy. Smoking Status: Never smoker Alcohol: Sober - Later history: Patient has not drank any alcohol in a while. Her last drink was unknown but it was at least more than 1 week ago. Drugs: None - Family History Maternal Family History: Reports: Heart Disease, Renal Disease - End-stage renal disease on peritoneal dialysis. Paternal Family History: Reports: Cancer - Throat cancer., Heart Disease - History of heart disease with AR status post PCI from description., Hypertension Review of Systems ROS: Unable to Obtain STROKE Vital Signs/Narrative: Vital Signs Temp Pulse Resp BP Pulse Ox 08/31/19 16:36 98.5 F 128 H 24 H 121/64 H 92 - NIHSS Initial 1a Level of Consciousness: 3 1b LOC Questions (Score 2 if aphasic/stupor): 2 1c LOC Commands (Only score 1st attempt): 2 2 Best Gaze (If aphasic, use reflexive mvmts.): 0 3 Visual: 3 4 Facial Palsy: 0 5 Motor Arm Right (UN = amputation/fusion): 4 5 Motor Arm Left: 4 6 Motor Leg Right: 4 6 Motor Leg Left: 4 7 Limb ataxia (Only + if out of proportion): UN 8 Sensory (Aphasia/stupor=0 or 1, coma=2): 2 9 Best Language: 3 10 Dysarthria (mute, coma=2, intubated=UN): 2 11 Extinction and Inattention (only scored if +): 0 Total Score: 33 2nd Follow up 1a Level of Consciousness: 2 1b LOC Questions (Score 2 if aphasic/stupor): 1 1c LOC Commands (Only score 1st attempt): 0 2 Best Gaze (If aphasic, use reflexive mvmts.): 0 3 Visual: 2 4 Facial Palsy: 2 5 Motor Arm Right (UN = amputation/fusion): 3 5 Motor Arm Left: 4 6 Motor Leg Right: 3 6 Motor Leg Left: 4 7 Limb ataxia (Only + if out of proportion): 0 8 Sensory (Aphasia/stupor=0 or 1, coma=2): 1 9 Best Language: 2 10 Dysarthria (mute, coma=2, intubated=UN): 1 11 Extinction and Inattention (only scored if +): 0 Total Score: 25 General: Well nourished, Well developed Head: Normocephalic, Trauma - left cheek/midface large firm hematoma Eyes: - - pupils unequal; right 1-2 and reactive, left 3 and sluggish. ENT: Moist mucous membranes, - - bloody anterior teeth and lips; small contusion right lower lip Neck: - - c-collar in place and maintained. no step-offs or obvious trauma. Cardiovascular: Regular rate, Regular rhythm, No murmurs, Tachycardia Respiratory: No distress, CTA bilaterally, Chest nontender, - - +spont breathing Abdomen: Soft, Nontender, Nondistended Back: Nontender, Normal Inspection Extremities: - - flaccid x 4 Skin: Normal color, No rash, Trauma - hematoma left midface; lip abrasion/contusion Neurological: Stupor - initially; after CT, lethargic, - - eyes open to voice; no movement/reflex to painful stim x 4; nonverbal; GCS - 5 Diagnostic/Tx/Re-eval Impressions Brain CT 08/31/19 16:43 IMPRESSION: 1. Chronic ischemic and involutional changes of the brain. 2. Moderate soft tissue swelling and subcutaneous hemorrhage is present in the left mid facial region. The left maxillary sinus completely opacified with mixed density mucus material and small amounts of hemorrhage due to a mildly comminuted fracture of the posterior wall of the left maxillary sinus in addition to a small buckle fracture of the floor of the left orbit Electronically Signed: Chiki Huerta MD at 17:13 EDT , Service support , ADDENDUM: 08/31/19 1721 IMPRESSION: 1. Chronic ischemic and involutional changes of the brain. 2. Moderate soft tissue swelling and subcutaneous hemorrhage is present in the left mid facial region. The left maxillary sinus completely opacified with mixed density mucus material and small amounts of hemorrhage due to a mildly comminuted fracture of the posterior wall of the left maxillary sinus in addition to a small buckle fracture of the floor of the left orbit N.B. : The above information has been verbally conveyed by Chiki Huerta MD to Bharati Zaidi RN, on 08/31/2019 17:14:38 (ET). Electronically Signed: Chiki Huerta MD at 17:13 EDT , Service support , Cervical Spine CT 08/31/19 16:46 IMPRESSION: Multilevel degenerative changes, as described above. Electronically Signed: Chiki Huerta MD at 17:18 EDT , Service support , Facial/Sinus 08/31/19 16:46 IMPRESSION: 1. Moderate soft tissue swelling and subcutaneous hemorrhage is present in the left mid facial region. 2. Mildly comminuted fracture of the posterior wall of the left maxillary sinus with mixed hemorrhage and mucus material filling the left maxillary sinus. 3. Small buckle nondisplaced fracture of the floor of the left orbit. 4. Nondisplaced oblique fracture through the left mid zygomatic arch Electronically Signed: Chiki Huerta MD at 17:26 EDT , Service support , Head/Neck CTA 08/31/19 16:46 IMPRESSION: 1. No hemodynamically significant stenosis or aneurysm or thrombus of the major intracranial arteries. 2. Mild atherosclerotic plaque of the right cavernous ICA. 3. Normal bilateral carotid arteries. Electronically Signed: Chiki Huerta MD at 17:33 EDT , Service support , Chest X-Ray 08/31/19 17:45 IMPRESSION: No demonstrated acute process. Electronically Signed: Chiki Huerta MD at 18:29 EDT , Service support , 08/31/19 16:43 Brain/Head without Contrast [CT] Stat 08/31/19 16:46 CTA Head AND Neck W/ Contrast [CT] Stat Sinus/Facial Bone [CT] Stat Spine Cervical without Contras [CT] Stat 08/31/19 17:45 CXR [Chest 1 View (Portable)] [RAD] Stat Laboratory Results 08/31/19 08/31/19 08/31/19 16:39 16:39 16:39 WBC 12.3 H RBC 3.63 L Hgb 12.5 Hct 40.5 MCV 111.6 H MCH 34.4 H MCHC 30.9 L RDW Std Deviation 54.2 H RDW Coeff of Maira 13.1 Plt Count 144 L MPV 9.9 Immature Gran % (Auto) 0.700 Neut % (Auto) 63.5 Lymph % (Auto) 26.4 [place] % (Auto) 7.6 Eos % (Auto) 0.7 Baso % (Auto) 1.1 H Absolute Neuts (auto) 7.8 H Absolute Lymphs (auto) 3.24 Nucleated RBC % 0 PT 16.2 H INR 1.4 APTT 33.4 Sodium 138 Potassium 3.3 L Chloride 98 Carbon Dioxide 14.0 L Anion Gap 26 H BUN 11 Creatinine 1.03 H Estim Creat Clear Calc 47.65 Est GFR (MDRD) Af Amer 69 Est GFR (MDRD) Non-Af 57 L BUN/Creatinine Ratio 10.7 Glucose 241 H Calcium 9.9 Troponin I < 0.015 - Rhythm Strip Rhythm Strip: Sinus Tach Rate: 125 Ectopy: PAC(s) - EKG Initial EKG Interpretation: No Acute Injury Pattern, Sinus Tachycardia - w/ frequent PACs - Medical Decision Making Stroke Team Activated: Yes - after my initial eval; no prehospital stroke team act. Reviewed Inclusion/Exclusion criteria: Yes Was Patient considered for Endovascular Intervention?: No - neg CTA IV Alteplase (t-PA) Administered: No - facial fractures/head trauma No contraindications for IV Alteplase (t-PA) administration.: No - facial fractures/head trauma, bleeding diathesis Discussed with [facility] stroke neurologist, who advises no IV TPA since the exact time of onset of stroke symptoms is unknown, and patient has relative contraindications including head trauma/fractures, known bleeding diathesis with the natural INR of 1.4 due to her cirrhosis. I agree with this logic. I discussed with the son at the bedside this logic as well and he was in agreement. She has multiple nondisplaced facial fractures including the posterior wall of the left maxilla, the zygomatic arch, and the floor of the left orbit. However, since she has a left hemianopia, I am unable to adequately evaluate for extraocular entrapment, which would be less likely due to the nondisplaced nature of the fracture of her orbit. She did have some further signs of improvement, she was able to move the fingers of her left hand. Luis's paralysis is also in the differential diagnosis, with seizure of unknown etiology. Unknown if she had a seizure causing her to fall and hit her head/face, or if she injured herself beforehand, causing the seizure. Patient will need urgent nonemergent MRI for further work-up in addition to multiple consultations from neurology, ENT, possibly ophthalmology. She was hypoxic even after moving her nasal cannula up to 6 L, and breathing through her nose. Her oxygen saturations are 86% with good waveform. Her lungs are clear. Chest x- ray shows some mild chronic interstitial fibrotic changes but nothing acute, with a Ventimask, her saturations are in the low 90s. She is not dyspneic. I am not able to send her for CT angiography of the chest since we already gave her a contrast bolus for angiography of the head and neck. On reexamination she continued to have improvement. She can move all 4 extremities although weak on the left. She can hold up her right arm and leg. She is more alert and following commands. Her airway is intact and stable. I am able to get a better evaluation of her extraocular movements, which are intact without entrapment or palsy, and without pain or diplopia. 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 She states she will usually wears eyeglasses which she does not have with her right now. I gave her empiric Keppra 750 mg, there is no further seizure activity while in the emergency department. I discussed her case with the hospitalist who asked that I discussed with oral-maxillofacial first. Dr. Bolden recommends transferring the patient to a specialty center. Discussed w/ family, who were OK with transferring her to [facility]. Discussed w/ their tranfer center, accepted to the ED under Dr. Scales. Although I am not able to rule out PE at this time, I do not think that the benefits of anticoagulation necessarily outweigh the risks of bleeding since we do not yet know if this was primarily stroke or not. Her bicarb is probably low due to lactic acidosis which typically will occur from tonic-clonic activity from a seizure. Additionally, it is possible that the hypokalemia is a result of shift, but empiric IV potassium given anyway. Also since she is not neurologically normal, although the C-spine CT was negative, the c-collar was left in place since she will be transferred to a trauma center. Critical care time (excluding procedures): 30-74 minutes - 40 minutes including time spent discussing with family, consultants, arranging transfer, performing direct patient care and reevaluation at the bedside ED Disposition - Plan for ED Patient: Disposition: [facility] Diagnosis: Acute left hemiparesis, Seizure, Multiple closed facial bone fractures, Closed head injury, Hypoxemia, Alcoholic cirrhosis of liver, Hypokalemia Referrals: Trevor Guerra MD [Primary Care Provider] -
--- NOTE | 2019-08-31 16:46 | CT_ITS ---
STUDY: CTA HEAD AND NECK WITH CONTRAST REASON FOR EXAM: Female, 64 years old. An equal pupils and stroke like symptoms. Left facial trauma after fall related to stroke RADIATION DOSAGE (If Supplied By Facility): CTDIvol = ( 7.15 ) mGy, DLP = ( 409.78 ) mGycm TECHNIQUE: CT angiography was performed with a multi-detector CT scanner. Data acquisition was obtained from the skull base through the vertex following intravenous administration of 100 ML ISOVUE 370. MIP images were reconstructed from the axial data set. Post-processing of the angiographic images was performed, with multiplanar reformation and 3D reconstruction. Individualized dose optimization techniques were used for this CT. COMPARISON: Noncontrast head CT dated August 31, 2019 FINDINGS: Normal bilateral petrous carotid arteries. There is calcified plaque formation of the right cavernous carotid artery, with a mild stenosis (less than 50%). There is calcified plaque formation of the left cavernous carotid artery, without a cross-sectional luminal stenosis. There is hypoplastic development of the right A1 segment of the anterior cerebral arteries with an atretic but intact artery. Normal left A1 segments of the anterior cerebral artery. Normal intact anterior communicating artery (ACOM). Normal bilateral A2 segments of the anterior cerebral arteries. Normal right M1 and M2 segments of the middle cerebral arteries, with a normal M1 bifurcation. Normal left M1 and M2 segments of the middle cerebral arteries, with a normal M1 bifurcation. Normal right posterior communicating artery (PCOM). Normal left posterior communicating artery (PCOM). Normal bilateral vertebral arteries. Normal basilar artery with a normal basilar bifurcation. The visualized bilateral superior cerebellar (SCA) arteries are normal. Normal bilateral P1, P2 and visualized P3 segments of the posterior cerebral arteries. There is no demonstrated aneurysm of the [place] of [place]. There is no demonstrated abnormality of the visualized brain. AORTIC ARCH: Normal visualized aortic arch. Normal origins of the brachiocephalic, left common carotid, and left subclavian arteries. RIGHT CAROTID ARTERIES: Normal right common carotid artery (CCA). Normal right common carotid bulb. Normal origin of the right internal carotid (ICA) artery without a hemodynamically significant stenosis. Normal visualized cervical portion of the right internal carotid artery. Normal origin of the right external carotid artery (ECA). LEFT CAROTID ARTERIES: Normal left common carotid artery (CCA). Normal left common carotid bulb. Normal origin of the left internal carotid (ICA) artery without a hemodynamically significant stenosis. Normal visualized cervical portion of the left internal carotid artery. Normal origin of the left external carotid artery (ECA). VERTEBRAL ARTERIES: Normal bilateral vertebral arteries. Major intracranial veins are normally opacified without evidence of thrombosis. CT/CTA Head AND Neck W/ Contrast IMPRESSION: 1. No hemodynamically significant stenosis or aneurysm or thrombus of the major intracranial arteries. 2. Mild atherosclerotic plaque of the right cavernous ICA. 3. Normal bilateral carotid arteries. Electronically Signed: Chiki Huerta MD at 17:33 EDT , Service support ,
--- NOTE | 2019-08-31 16:46 | CT_ITS ---
STUDY: CT CERVICAL SPINE WITHOUT CONTRAST REASON FOR EXAM: Female, 64 years old. stroke/unequal puplis/fall injury with neck pain RADIATION DOSAGE (If Supplied By Facility): CTDIvol = ( 12.89 ) mGy, DLP = ( 274.34 ) mGycm TECHNIQUE: High resolution transaxial imaging was performed without contrast material. Sagittal and coronal images were reconstructed. Individualized dose optimization techniques were used for this CT. COMPARISON: None FINDINGS: Normal craniovertebral junction. Normal anterior atlantoaxial articulation. Normal odontoid process. There is straightening of the normal cervical lordosis. No visualized acute fracture or compression deformity. No jumped facets. Mild to moderate disc space narrowing is present at C5-C6 and C6-C7 in addition to diffuse disc osteophyte complexes contributing to mild central canal stenosis. Additional multilevel degenerative changes are present. Normal visualized soft tissue structures. CT/Spine Cervical without Contras IMPRESSION: Multilevel degenerative changes, as described above. Electronically Signed: Chiki Huerta MD at 17:18 EDT , Service support ,
--- NOTE | 2019-08-31 16:46 | CT_ITS ---
STUDY: CT FACIAL BONES WITHOUT CONTRAST REASON FOR EXAM: Female, 64 years old. Fall injury with facial swelling and pain RADIATION DOSAGE (If Supplied By Facility): CTDIvol = ( 29.38 ) mGy, DLP = ( 562.15 ) mGycm TECHNIQUE: The patient was scanned in a multi detector CT scanner. Sagittal and coronal images were reconstructed. Individualized dose optimization techniques were used for this CT. COMPARISON: Head CT dated August 31, 2019 FINDINGS: Moderate soft tissue swelling and subcutaneous hemorrhage is present in the left mid facial region. The left maxillary sinus completely opacified with mixed density mucus material and small amounts of hemorrhage due to a mildly comminuted fracture of the posterior wall of the left maxillary sinus in addition to a small buckle nondisplaced fracture of the floor of the left orbit. A tiny oblique fracture is present through the mid aspect of the left zygomatic arch without displacement. Normal right zygomatic arch. The remaining paranasal sinuses are clear. Normal right orbit. Normal bilateral orbital soft tissue contents/globes. No visualized fractures of the mandible. CT/Sinus/Facial Bone IMPRESSION: 1. Moderate soft tissue swelling and subcutaneous hemorrhage is present in the left mid facial region. 2. Mildly comminuted fracture of the posterior wall of the left maxillary sinus with mixed hemorrhage and mucus material filling the left maxillary sinus. 3. Small buckle nondisplaced fracture of the floor of the left orbit. 4. Nondisplaced oblique fracture through the left mid zygomatic arch Electronically Signed: Chiki Huerta MD at 17:26 EDT , Service support ,
[2019-08-31 16:48] LABS: Absolute Lymphocyte Count 3.24 X10^3/uL (0.83-4.51); Absolute Neutrophil Count 7.8 X10^3/uL (2.0-7.7); Basophil# 0.13 X10^3/uL; Basophil% 1.1 % (0-1); Eosinophil# 0.09 X10^3/uL; Eosinophils% 0.7 % (0-5); Hematocrit 40.5 % (37-47); Hemoglobin 12.5 g/dL (12.0-15.0); Lymphocyte # 3.24 X10^3/ul (4.0); Lymphocyte % 26.4 % (19-41); Mean Corp Hgb Conc 30.9 g/dL (32-36); Mean Corpuscular Hgb 34.4 pg (27.0-32.0); Mean Corpuscular Volume 111.6 fL (81-99); Mean Platelet Vol. 9.9 fl (6.2-12.0); Monocyte# 0.93 X10^3/uL; Monocyte% 7.6 % (0-10); NRBC Flagged by Analyzer 0 % (0-5); Neutrophil # 7.81 X10^3/uL (2.7-7.7); Neutrophil % 63.5 % (47-70); Platelet Count 144 K/mm3 (150-450); RBC Distribution Width CV 13.1 % (11.6-14.6); RBC Distribution Width SD 54.2 fl (35.1-43.9); Red Blood Count 3.63 M/mm3 (4.2-5.4); White Blood Count 12.3 K/mm3 (4.4-11.0)
--- NOTE | 2019-08-31 16:48 | NURSING ---
unable to perform nih due to pt not responding, ems did give versed for seizure.
[2019-08-31 16:57] LABS: International Normalized Ratio 1.4; Partial Thromboplast Time 33.4 Seconds (24.1-36.2); Prothrombin Time (Protime)PT. 16.2 SECONDS (11.7-14.9)
--- NOTE | 2019-08-31 17:03 | CM.ED ---
Social Work Consult: Stroke Alert Responding to [facility] Alert. Patient Son, Ender present in room. Support provided. Ender currently lives with patient. Will continue to follow as needed. Mai COURTNEY, PORSHA
[2019-08-31 17:12] LABS: Anion Gap 26 (5-15); BUN 11 mg/dL (7-18); BUN/Creat Ratio 10.7 RATIO (10-20); Calcium,Total 9.9 mg/dL (8.5-10.1); Chloride 98 mmol/L (98-107); Creatinine, Serum 1.03 mg/dL (0.55-1.02); EST Glomerular Filtration Rate 57 mL/min (>60); Est Glom Filt Rate - Afr Amer 69 mL/min (>60); Estimated Creatinine Clearance 47.65 ml/min; Glucose 241 mg/dL (74-106); Potassium 3.3 mmol/L (3.5-5.1); Sodium Level 138 mmol/L (136-145)
--- NOTE | 2019-08-31 17:45 | RAD_ITS ---
STUDY: X-RAY CHEST REASON FOR EXAM: Female, 64 years old. pt was at work had a seizure and fell and hit her head. TECHNIQUE: Single AP portable view of the chest. COMPARISON: April 15, 2017 FINDINGS: There are mild and chronic interstitial fibrotic changes of the lungs. There is no demonstrated pleural abnormality. Normal size heart. Stable visualized mediastinal and osseous structures. Old fracture deformity of the distal left clavicle reidentified. RAD/Chest 1 View (Portable) IMPRESSION: No demonstrated acute process. Electronically Signed: Chiki Huerta MD at 18:29 EDT , Service support ,
[2019-08-31] MEDS: Potassium Chloride 10mEq/100mL 10 MEQ/100 ML IV.SOLN. 100 MEQ IV BOLUS (19:25)
== END 2019-08-31 21:19 | disposition short-term general hospital (02) ==
PROVIDERS: Emergency Provider Emergency Medicine; PCP Family Medicine
DX: G81.94 Hemiplegia, unspecified affecting left nondominant side (principal); R56.9 Unspecified convulsions; S02.92XA Unspecified fracture of facial bones, initial encounter for closed fracture; S09.90XA Unspecified injury of head, initial encounter; R09.02 Hypoxemia; K70.30 Alcoholic cirrhosis of liver without ascites; E87.6 Hypokalemia; X58.XXXA Exposure to other specified factors, initial encounter; Y92.512 Supermarket, store or market as the place of occurrence of the external cause; K21.9 Gastro-esophageal reflux disease without esophagitis
CPT/HCPCS: 36415; 70450; 70486; 70496; 70498; 71045; 72125; 80048; 84484; 85025; 85610; 85730; 93005; 96365; 96367; 99285; J7040; A4216

== ENCOUNTER → 2019-10-31 13:53 | Outpatient (CLI) | payer MEDICAID, SELFPAY ==
[2019-08-31 16:36] VITALS: BMI 20.9
[2019-10-31 18:45] LABS: Absolute Lymphocyte Count 0.91 X10^3/uL (0.83-4.51); Absolute Neutrophil Count 2.2 X10^3/uL (2.0-7.7); Basophil# 0.02 X10^3/uL; Basophil% 0.5 % (0-1); Eosinophil# 0.16 X10^3/uL; Eosinophils% 4.2 % (0-5); Hematocrit 28.6 % (37-47); Hemoglobin 8.1 g/dL (12.0-15.0); Lymphocyte # 0.91 X10^3/ul (4.0); Mean Corp Hgb Conc 28.3 g/dL (32-36); Mean Corpuscular Hgb 25.6 pg (27.0-32.0); Mean Corpuscular Volume 90.5 fL (81-99); Mean Platelet Vol. 13.1 fl (6.2-12.0); Monocyte# 0.45 X10^3/uL; Monocyte% 11.9 % (0-10); NRBC Flagged by Analyzer 0 % (0-5); Neutrophil # 2.24 X10^3/uL (2.7-7.7); Neutrophil % 59.1 % (47-70); POSITIVE COUNT YES; RBC Distribution Width CV 14.6 % (11.6-14.6); RBC Distribution Width SD 48.9 fl (35.1-43.9); Red Blood Count 3.16 M/mm3 (4.2-5.4); White Blood Count 3.8 K/mm3 (4.4-11.0)
[2019-10-31 18:59] LABS: Vitamin B12 390 pg/mL (211-911)
[2019-10-31 19:05] LABS: Differential Indicated SCAN CRITERIA MET
[2019-10-31 19:37] LABS: ALB/GLOB Ratio 0.9 RATIO (0.9-2.4); AST(SGOT) 45 U/L (15-37); Alanine Aminotransfer ALT/SGPT 20 U/L (13-56); Albumin, Serum 3.7 g/dL (3.2-5.0); Alkaline Phosphatase 116 U/L (45-117); Anion Gap 7 (5-15); BUN 7 mg/dL (7-18); BUN/Creat Ratio 9.7 RATIO (10-20); Calcium,Total 8.9 mg/dL (8.5-10.1); Chloride 103 mmol/L (98-107); Creatinine, Serum 0.72 mg/dL (0.55-1.02); EST Glomerular Filtration Rate 87 mL/min (>60); Est Glom Filt Rate - Afr Amer 105 mL/min (>60); Ferritin 11 ng/mL (8-252); Globulin 3.9 g/dL (2.2-4.2); Glucose 107 mg/dL (74-106); Iron 25 ug/dL (50-170); Iron Binding Capacity,Total 465 ug/dL (250-450); Potassium 3.4 mmol/L (3.5-5.1); Protein, Total 7.6 g/dL (6.4-8.2); Sodium Level 135 mmol/L (136-145); T4 Free Direct 0.89 ng/dL (0.76-1.46); Thyroid Stim Hormone (TSH) 2.82 uIU/mL (0.358-3.74)
[2019-10-31 20:15] LABS: Platelet Estimate ADEQUATE (ADEQ); Red Cell Morphology NORM C+C NORMAL (NORM C&C)
[2019-10-31 21:34] LABS: Platelet Count 66 K/mm3 (150-450)
== END ==
PROVIDERS: PCP Family Medicine; Referring Provider Family Medicine; Visit Provider Family Medicine
DX: E03.9 Hypothyroidism, unspecified (principal); D64.9 Anemia, unspecified; K70.31 Alcoholic cirrhosis of liver with ascites
CPT/HCPCS: 36415; 80053; 82140; 82607; 82728; 82746; 83540; 83550; 84425; 84439; 84443; 85025

== ENCOUNTER 2022-05-11 17:15 | Inpatient (IN) | payer MEDICARE, MEDICAID, SELFPAY ==
[2022-05-11] VITALS (7 sets, daily range): BP systolic 119–152; BP diastolic 70–103; PULSE 102–147; RESP 18–19; TEMP 36.2–38.2; O2SAT 96–97; BMI 20.3; BMI 20.9
--- NOTE | 2022-05-11 17:26 | EKG12_ITS ---
Test Reason : CONFUSION Blood Pressure : / mmHG Vent. Rate : 099 BPM Atrial Rate : 000 BPM P-R Int : 000 ms QRS Dur : 066 ms QT Int : 330 ms P-R-T Axes : 000 035 041 degrees QTc Int : 423 ms Sinus rhythm Abnormal ECG Confirmed by TISH RODRIGUES, KAM ([id number]), script editor ESPERANZA FRANK ([id number]) on 05/12/2022 10:55:57 AM Referred By: Confirmed By:KAM WINSTON MD
--- NOTE | 2022-05-11 17:26 | CT_ITS ---
EXAMINATION : Head CT w/out contrast HISTORY : Confusion COMPARISON : None. TECHNIQUE : Multiple contiguous axial images were obtained from the skull base to the vertex without intravenous contrast. A radiation dose optimization technique was used for this scan. FINDINGS : There is no evidence for acute intracranial hemorrhage, mass effect, or midline shift. There is no extra-axial fluid collection. There are periventricular white matter changes consistent with chronic microvascular ischemic disease. There is sulcal widening and ventricular enlargement consistent with cerebral atrophy. There is normal arnold-white differentiation, without CT evidence of acute ischemia or infarct. The skull base and calvarium are unremarkable. The orbits are unremarkable. The paranasal sinuses are clear. The mastoid air cells are well-aerated. The soft tissues are unremarkable. CT/Brain/Head without Contrast IMPRESSION: No acute intracranial abnormality. Chronic involutional and ischemic changes of the brain. Electronically Signed: Artur Gaspar MD at 18:55 EST ,
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
[2022-05-11 17:43] LABS: Absolute Lymphocyte Count 0.52 X10^3/uL (0.83-4.51); Absolute Neutrophil Count 4.9 X10^3/uL (2.0-7.7); Basophil# 0.04 X10^3/uL; Basophil% 0.7 % (0-1); Eosinophil# 0.01 X10^3/uL; Eosinophils% 0.2 % (0-5); Hematocrit 41.2 % (37-47); Hemoglobin 14.1 g/dL (12.0-15.0); Lymphocyte # 0.52 X10^3/ul (0.83-4.51); Lymphocyte % 8.7 % (19-41); Mean Corp Hgb Conc 34.2 g/dL (32-36); Mean Corpuscular Hgb 36.6 pg (27.0-32.0); Mean Platelet Vol. 10.8 fl (6.2-12.0); Monocyte# 0.45 X10^3/uL; Monocyte% 7.5 % (0-10); NRBC Flagged by Analyzer 0 % (0-5); Neutrophil # 4.94 X10^3/uL (2.7-7.7); Neutrophil % 82.7 % (47-70); POSITIVE COUNT YES; POSITIVE DIFFERENTIAL YES; Platelet Count 75 K/mm3 (150-450); RBC Distribution Width CV 12.4 % (11.6-14.6); RBC Distribution Width SD 49.2 fl (35.1-43.9); Red Blood Count 3.85 M/mm3 (4.2-5.4)
--- NOTE | 2022-05-11 17:45 | RAD_ITS ---
INDICATION: CAD EXAMINATION/TECHNIQUE: X-RAY - XR Chest 1 View COMPARISON: 09/02/2019. FINDINGS: The lungs are clear. The cardiomediastinal silhouette is unremarkable. No pleural effusion or pneumothorax. No acute osseous abnormalities. Old fracture deformity of the distal left clavicle. RAD/Chest 1 View (Portable) IMPRESSION: No acute radiographic abnormalities. Electronically Signed: Artur Gaspar MD at 18:56 EST ,
[2022-05-11 17:54] LABS: Alcohol, Blood (Medical)-Serum < 3.0 mg/dL
[2022-05-11 17:58] LABS: International Normalized Ratio 1.2; Prothrombin Time (Protime)PT. 15.3 SECONDS (11.7-14.9)
[2022-05-11 17:59] LABS: ALB/GLOB Ratio 0.9 RATIO (0.9-2.4); AST(SGOT) 171 U/L (15-37); Alanine Aminotransfer ALT/SGPT 66 U/L (13-56); Albumin, Serum 4.1 g/dL (3.2-5.0); Alkaline Phosphatase 178 U/L (45-117); Anion Gap 11 (5-15); BUN 9 mg/dL (7-18); BUN/Creat Ratio 14.8 RATIO (10-20); Calcium,Total 9.3 mg/dL (8.5-10.1); Chloride 102 mmol/L (98-107); Creatinine, Serum 0.61 mg/dL (0.55-1.02); EST Glomerular Filtration Rate 104 mL/min (>60); Est Glom Filt Rate - Afr Amer 126 mL/min (>60); Estimated Creatinine Clearance 48.49 ml/min; Globulin 4.4 g/dL (2.2-4.2); Glucose 150 mg/dL (74-106); Partial Thromboplast Time 30.3 Seconds (24.1-36.2); Potassium 3.6 mmol/L (3.5-5.1); Protein, Total 8.5 g/dL (6.4-8.2); Sodium Level 137 mmol/L (136-145); Troponin-I HS 7 pg/mL (3.0-54.0)
[2022-05-11 18:12] LABS: Differential Indicated SCAN CRITERIA MET
[2022-05-11] MEDS: 0.9% Normal Saline 1,000 ML 1000 ML IV (18:17)
[2022-05-11 18:18] LABS: Differential Comment SCANNED
[2022-05-11 18:32] LABS: Bacteria 0 SEEN /hpf (None Seen); Mucous, Urine 0 SEEN /hpf (<or=2+); Red Blood Cells-Urine 0 SEEN /hpf (0-5); Squamous Epithelial Cells - UA 0 SEEN /hpf (5-10); White Blood Cells 0 SEEN /hpf (0-5)
[2022-05-11 18:34] LABS: Color, Urine Yellow (Yellow); Glucose, Dipstick Normal (Normal); Ketone-Dipstick 50 mg/dl (Negative); Leukocyte Esterase-Dipstick Negative /ul (Negative); Nitrite-Dipstick Negative (Negative); Occult Blood-Urine Negative /ul (Negative); Protein-Dipstick 15 mg/dl (Negative); Urine Bilirubin Dipstick Negative (Negative); Urine Clarity Clear (Clear); Urine Urobilinogen 1 mg/dl (Normal)
[2022-05-11] MEDS: Metoprolol Tartrate 5 MG/5 ML Vial IV (19:12)
--- NOTE | 2022-05-11 19:25 | EKG12_ITS ---
Test Reason : CONFUSION Blood Pressure : / mmHG Vent. Rate : 114 BPM Atrial Rate : 000 BPM P-R Int : 000 ms QRS Dur : 070 ms QT Int : 310 ms P-R-T Axes : 000 029 041 degrees QTc Int : 427 ms Atrial fibrillation with rapid ventricular response Abnormal ECG Confirmed by TISH RODRIGUES, KAM ([id number]), video tape editor ESPERANZA FRANK ([id number]) on 05/12/2022 10:56:11 AM Referred By: Confirmed By:KAM WINSTON MD
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
[2022-05-11] MEDS: Ondansetron 4 MG/2 ML Vial IV (21:02)
--- NOTE | 2022-05-11 21:20 | ECHOD_ITS ---
Reason For Study: Afib, Aflutter Procedure This was a 2D Doppler, Color Flow transthoracic echocardiogram. Exam performed portable in patient room. Left Ventricle Normal LV size. Left ventricular systolic function is normal. The estimated ejection fraction is 60 %. Stage 2 diastolic dysfunction. No regional wall motion abnormalities noted. Right Ventricle Normal RV size. Normal systolic function. Atria Normal left atrium. Normal right atrium. Bubble contrast study negative for right to left interatrial shunt. Mitral Valve Bileaflet diffuse mitral valve thickening. There is mild mitral annular calcification. Mild-Moderate (1-2+) eccentric mitral valve insufficiency. Tricuspid Valve Normal tricuspid valve. Mild tricuspid valve insufficiency. Pulmonary artery systolic pressure is 23 mmHg. Aortic Valve Trisinus/trileaflet aortic valve. Mild focal aortic valve thickening. Pulmonic Valve Normal pulmonic valve. Great Vessels Normal aortic root. The pulmonary artery is normal size. Normal inferior vena cava. Pericardium/Pleural No pericardial effusion. Medication Performed a rapid injection of agitated mix of 9 cc saline and 1cc air to assess for atrial septal defect. MMode/2D Measurements & Calculations LVIDd: 3.9 cm IVSd: 0.95 cm Ao root diam: 3.5 cm LVIDs: 2.3 cm LVPWd: 1.00 cm RVDd: 3.1 cm FS: 39.9 % LAV(MOD-bp): 37.0 ml LVAd ap4: 19.0 cm2 SV(MOD-sp4): 29.8 ml LAV(MOD-bp) Indexed: 23.1 ml/m2 LVLd ap4: 6.7 cm LAV(MOD-sp2): 37.0 ml EDV(MOD-sp4): 45.5 ml LAV(MOD-sp4): 37.1 ml EDV(sp4-el): 46.1 ml LVAs ap4: 9.9 cm2 LVLs ap4: 5.3 cm ESV(MOD-sp4): 15.8 ml ESV(sp4-el): 15.5 ml EF(MOD-sp4): 65.3 % EF(sp4-el): 66.3 % SV(sp4-el): 30.6 ml LA A4 area: 15.0 cm2 LA dimension(2D): 3.6 cm RA A4 area: 10.6 cm2 Time Measurements MV dec time: 0.21 sec Doppler Measurements & Calculations MV E max herbie: 93.2 cm/sec Lat Peak E' Herbie: 9.9 cm/sec Med Peak E' Herbie: 8.5 cm/sec MV A max herbie: 76.1 cm/sec E/E' lat: 9.4 E/E' med: 11.0 MV E/A: 1.2 MV dec slope: 434.9 cm/sec2 Ao V2 max: 137.6 cm/sec LV V1 max: 119.2 cm/sec Ao max P.6 mmHg LV V1 max P.7 mmHg Ao V2 mean: 94.5 cm/sec Ao mean P.1 mmHg Ao V2 VTI: 28.5 cm PA V2 max: 105.9 cm/sec TR max herbie: 214.0 cm/sec TR max P.3 mmHg ECHO/Echo Complete Interpretation Summary Normal LV size. Left ventricular systolic function is normal. The estimated ejection fraction is 60 %. Stage 2 diastolic dysfunction. Bubble contrast study negative for right to left interatrial shunt. Ordering Physician: Rico Oneal Referring Physician: Trevor Guerra Performed By: Sydnee Boston RDCS, RVT
[2022-05-11] MEDS: levETIRAcetam IV 1,000 MG/100 ML BAG 400 MG IV (21:45)
--- NOTE | 2022-05-11 21:50 | NURSING ---
Patient was brought to floor from ER, pt was settled in bed complaining of feeling weak pt then had a 2 minute seizure, staff assist was called. Dr Oneal notified
--- NOTE | 2022-05-11 21:53 | TELEMED_ITS ---
[facility] has confirmed receipt of a request for visit. This document confirms receipt of the order initiating the consult. To find the results of the consultation, please view the patient's reports for the scanned Telemed Consult.
[2022-05-11 22:25] LABS: Amphetamine Urine VISTA NEGATIVE (<1000 ng/mL); Barbiturate Urine VISTA NEGATIVE (< 200 ng/mL); Benzodiazepine Urine VISTA NEGATIVE (< 200 ng/mL); Cocaine Urine VISTA NEGATIVE (< 300 ng/mL); Ecstacy Urine VISTA NEGATIVE (< 500 ng/mL); Methadone Urine VISTA NEGATIVE (< 300 ng/mL); PCP Urine VISTA NEGATIVE (< 25 ng/mL); THC Urine VISTA NEGATIVE (< 50 ng/mL); Vista UDS pH Range 7
[2022-05-11 22:29] LABS: CPK Total, Creatine Kinase 117 U/L (26-192); Prolactin 67.9 ng/mL
[2022-05-11] MEDS: Latanoprost 0.005% 1 Bottle 1 DRP EACH EYE (23:39)
[2022-05-11] MEDS: Metoprolol Tartrate 25 MG Tablet PO (23:39)
[2022-05-11] MEDS: Heparin Injection (Vial) 5,000 UNIT/ML VIAL 5000 UNIT SC (23:40)
[2022-05-11] MEDS: Acetaminophen 325 MG Tablet 650 MG PO (23:48)
[2022-05-11 23:50] LABS: Bedside Glucose 180 mg/dL (74-106)
[2022-05-12] VITALS (9 sets, daily range): BP systolic 104–137; BP diastolic 63–90; PULSE 81–108; RESP 16–18; TEMP 36.7–37.9; O2SAT 99–100
[2022-05-12] MEDS: Haloperidol Lactate 5 MG/ML Vial 2 MG IV (00:46)
--- NOTE | 2022-05-12 01:04 | NURSING ---
Son of the patient (Ender) will bring in her medications tomorrow morning to verify Meds. At this time medications for this patient are not verified
[2022-05-12 06:26] LABS: ALB/GLOB Ratio 0.8 RATIO (0.9-2.4); AST(SGOT) 123 U/L (15-37); Alanine Aminotransfer ALT/SGPT 53 U/L (13-56); Albumin, Serum 3.2 g/dL (3.2-5.0); Alkaline Phosphatase 150 U/L (45-117); Anion Gap 9 (5-15); BUN 8 mg/dL (7-18); BUN/Creat Ratio 13.7 RATIO (10-20); Calcium,Total 8.6 mg/dL (8.5-10.1); Chloride 101 mmol/L (98-107); Creatinine, Serum 0.58 mg/dL (0.55-1.02); EST Glomerular Filtration Rate 110 mL/min (>60); Est Glom Filt Rate - Afr Amer 133 mL/min (>60); Estimated Creatinine Clearance 45.78 ml/min; Globulin 3.8 g/dL (2.2-4.2); Glucose 96 mg/dL (74-106); Potassium 2.9 mmol/L (3.5-5.1); Sodium Level 134 mmol/L (136-145)
[2022-05-12] MEDS: Potassium Chloride Oral Tablet 20 MEQ 40 MEQ PO (07:32)
--- NOTE | 2022-05-12 07:54 | US_ITS ---
STUDY: ABDOMINAL ULTRASOUND - RIGHT UPPER QUADRANT REASON FOR VISIT: Female, 66 years old elevated LFT. TECHNIQUE: Ultrasound evaluation of the right upper quadrant was performed with real-time and static pitt-scale imaging. TECHNICAL QUALITY: Adequate. COMPARISON: CT abdomen and pelvis with contrast 08/09/2018. FINDINGS: Liver: The liver measures 18.4 cm. There is increased echogenicity of liver parenchyma due to mild fatty infiltration. The bile ducts are within normal limits. There is hepatic color flow. The direction of portal flow is hepatopetal. There is no demonstrated mass lesion. Small free fluid overlying the right hepatic lobe. Gallbladder: Postsurgical absence. Anechoic area simulating gallbladder posterior and lateral to the right hepatic lobe measuring 5.7 cm may represent loculated fluid . Common Bile Duct (C.B.D.): The common bile duct measures 4.1 mm. Pancreas: Obscured by overlying bowel gas. Right Kidney: Normal size of the right kidney. The right kidney measures 11.5 x 4.3 x 4.9 cm. Normal renal cortex. The right cortex measures 1.7 cm. There is no demonstrated renal mass or cyst. There is no right hydronephrosis. US/Abdomen Limited IMPRESSION: 1. 5.7 cm loculated fluid posterior and lateral to the right hepatic lobe is uncertain for biloma. Additionally, there is a small free fluid overlying the right hepatic lobe. If bile leak is a clinical consideration, hepatobiliary scan may be helpful for further evaluation. 2. Mild diffuse hepatic steatosis. 3. Interval cholecystectomy when compared to CT abdomen and pelvis of 08/09/2018. Electronically Signed: Sha Sharpe MD at 11:35 EST ,
[2022-05-12] MEDS: Potassium Chloride 10mEq/100mL 10 MEQ/100 ML IV.SOLN. 100 MEQ IV BOLUS ×4 (08:03→14:38)
[2022-05-12] MEDS: Metoprolol Tartrate 25 MG Tablet PO ×2 (08:15→20:29)
--- NOTE | 2022-05-12 09:00 | MRI_ITS ---
ACR Level 3 findings have been noted. An addendum which confirms receipt of the report will follow. EXAM: MR HEAD WITHOUT INTRAVENOUS CONTRAST CLINICAL INDICATION: Confusion, weakness TECHNIQUE: Multiplanar and multisequence MR images of the brain were obtained without intravenous contrast. This report was created using [employer] report generation technology. COMPARISON: CT head without contrast 05/11/2022. FINDINGS: BRAIN AND EXTRA-AXIAL SPACES: 3.5 mm thick T2 FLAIR hyperintensity extra-axial fluid collection overlying the right temporal lobe and 3.5 mm extra-axial fluid collection overlying the left temporal lobe. No intra- or extra-axial hemorrhage. No evidence of acute infarct. There is preservation of the pitt/white matter interface. Posterior fossa structures are unremarkable. No hydrocephalus. No midline shift. No significant mass effects. Normal ventricles and cisterns. No focal signal abnormalities throughout the brain parenchyma. SELLA: Unremarkable. Normal sella turcica, pituitary gland, infundibular stalk, optic chiasm and hypothalamus. AUDITORY SYSTEM: Unremarkable. The internal auditory canals are patent. BONES/JOINTS: Unremarkable. No discrete lytic or blastic abnormalities. SINUSES: Unremarkable as visualized. Clear. MASTOID AIR CELLS: Unremarkable as visualized. Clear. ORBITS: Unremarkable as visualized. Both globes, extraocular muscles, optic nerves and retrobulbar fat appear unremarkable. VASCULATURE: Unremarkable as visualized. Normal flow voids in the major intracranial circulation. MRI/Brain without Contrast IMPRESSION: 1. 3.5 mm thick subdural hematomas overlying the temporal lobes are isodense on CT head scan of 05/11/2022. There are most in keeping with subacute subdural hematomas. No significant mass effects on the underlying temporal lobes and no midline shift. 2. No MRI evidence of recent or remote infarcts throughout the brain parenchyma. Electronically Signed: Sha Sharpe MD at 10:40 EST ,
--- NOTE | 2022-05-12 11:40 | CASEMGMT ---
RN ILIR MANAGER OF [employer] CM to room to meet with patient for initial transition planning/care coordination assessment. ANSELMO HAZEL introduced self and role at [facility]. Pt voices understanding and consents to assessment at this time. Pt resting in bed in no distress at this time. Son, Ender, @ bedside. Pt is alert at this time. Pt able to recall most of the following information, but did refer to her son, Ender, for some of the information. Care providers, pharmacy, and demographics verified/updated at this time. PCP: Dr Guerra Specialists: none Preferred Pharmacy: [facility] Retail Insurance: [facility] Prescription Benefit: Yes Living Will/HPOA: Pt has both LW and HCPOA, who is her son, Ender LNOK: Son/POAEnder Living Arrangements: Lives w/Ender in 2-story home w/2-3 steps to enter. Ender states she has no difficulty w/stairs. Pt is independent w/ADL's and IADL's. Son states pt has been managing her medications but he can assist, if needed. Pt works part-time @ [employer] (6-8 hr shifts) Transportation: Pt and son both drive. DME: Denies using any DME and denies needs. HHC/SNF: Hx a SNF in [place] and also [facility] RU and hx of [facility] HHC. Pt and son wish for pt to return home and states has no concerns with going home at time of discharge. Pt states does not smoke. She used to drink ETOH, but states has not drank for awhile and then states it has been years. Son states he is not sure how long it has been. CM to follow for any discharge planning/needs. Pt and son voice no further concerns/needs at this time. Advised them to ask for CM if any questions/concerns/needs arise. They voice understanding. PLAN: Home w/support of son and discharge plans in place. CM to follow for anti-coag @ d/c. ANSELMO HAZEL spoke w/Brianna re: Pt Link. Brianna partida will talk w/pt and son about the program. Caryl TAYLOR RN, CM
[2022-05-12] MEDS: Heparin Injection (Vial) 5,000 UNIT/ML VIAL 5000 UNIT SC (12:01)
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
--- NOTE | 2022-05-12 15:24 | CT_ITS ---
STUDY: CT ABDOMEN AND PELVIS WITHOUT CONTRAST REASON FOR EXAM: Female, 66 years old. 5.7 cm loculated fluid collection RADIATION DOSAGE (If Supplied By Facility): CTDIvol = ( 6.08 ) mGy, DLP = ( 297.95 ) mGycm TECHNIQUE: Transaxial images were obtained from the dome of the diaphragm to the symphysis pubis without oral contrast, and without intravenous contrast. Sagittal and coronal images were reconstructed. Individualized dose optimization techniques were used for this CT. COMPARISON: August 09, 2018 FINDINGS: The visualized lung bases are unremarkable. Heart size is normal. There is minor coronary artery calcification. Multinodular appearance to the liver contour which may be due to hepatic cirrhosis. No mass or bile duct dilatation.. Normal gallbladder not visualized which may be consistent with cholecystectomy. There is a small loculated fluid collection in the right upper quadrant near the gallbladder fossa measuring approximately 5 x 1.63 cm. possibly representing postsurgical seroma. Borderline splenic enlargement. Normal pancreas. Normal bilateral adrenal glands. Normal right kidney. Normal left kidney. Normal visualized stomach. Normal small intestine. Postsurgical changes involving the ascending colon . No evidence for acute appendicitis Atherosclerotic changes of the aorta without evidence for aneurysm. Normal inferior vena cava. Normal retroperitoneum. Poorly distended thick walled prolapsed bladder of uncertain significance. Uterus has been removed surgically. Small fat-containing inguinal hernias. Lumbar spine demonstrates mild spondylosis Probable postsurgical seroma at site of previously noted gallbladder which was gallstones and likely resected however clinical correlation is recommended CT/Abdomen/Pelvis without Cont IMPRESSION: Small loculated fluid collection in the right upper quadrant most likely postsurgical seroma measuring approximately 5 x 1.63 cm likely due to prior cholecystectomy. However clinical correlation is recommended Other findings as above Electronically Signed: Alex Giron MD at 17:16 EST Reading Location ID and State: [facility] / [place] , Service support ,
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
[2022-05-12] MEDS: RisperiDONE 0.5 MG Tablet PO (20:29)
[2022-05-12] MEDS: Latanoprost 0.005% 1 Bottle 1 DRP EACH EYE (20:39)
[2022-05-12] MEDS: Haloperidol Lactate 5 MG/ML Vial 4 MG IV ×2 (21:41→22:40)
--- NOTE | 2022-05-12 21:45 | NURSING ---
Pt is confused, hallucinating, and becoming paranoid. She wanted to leave and walked out of the room, wandering the halls, walking into other rooms, and looking for the exit. She was reoriented by several RNs and neonatal pediatric nurse before becoming extremely agitated, and yelling. A janice guzman was then called, and she was assisted back to her room, remaining confused. Haldol was given.
--- NOTE | 2022-05-12 21:49 | CASEMGMT ---
SW Note Referral Source: Code Vanessa Referral Reason: emotional support SW responded to Code Vanessa on PCU to provide support to patient or patient's family if needed. Family was not present, patient had several other staff members assisting her back into her room. Patient appeared to be confused and trying to go down the smith, repeating her needed to eat and she recently had a stroke. Staff assisted her back into her room. SW remains available if needs arise. Amira Henriquez LICENSED PRACTICAL VOCATIONAL NURSE, PORSHA
[2022-05-12] MEDS: 0.9% Saline Lock 10 ML Syringe IV (22:40)
--- NOTE | 2022-05-12 22:40 | NURSING ---
4mg iv haldol given for severe agitation, pt swinging arms and kicking feet. pt cussing at staff.
[2022-05-12] MEDS: LORazepam 2 MG/ML Syringe 4 MG IM (23:04)
--- NOTE | 2022-05-12 23:15 | NURSING ---
Pt laying in bed, pulling at iv and heart monitor, stating she has to go, restraints applied to maintain iv and monitor. support given to patient, reoriented patient to location. This RN stayed at bedside with patient.
--- NOTE | 2022-05-12 23:45 | NURSING ---
Pt with eyes closed, respirations unlabored, b/l wrist restraints remain. will continue to monitor.
[2022-05-13] VITALS (12 sets, daily range): BP systolic 106–143; BP diastolic 62–88; PULSE 69–124; RESP 16–18; TEMP 36.4–37.2; O2SAT 95–100
--- NOTE | 2022-05-13 00:40 | NURSING ---
Son, Ender called and updated about the patient being in soft restraints. Updated on the reasoning, and is aware of policy. States that he is exhausted and hopes that she will stay calmed down and sleep now. Also states to call with any other updates.
[2022-05-13] MEDS: 0.9% Saline Lock 10 ML Syringe IV ×2 (05:40→14:19)
[2022-05-13] MEDS: Haloperidol Lactate 5 MG/ML Vial 4 MG IV (05:41)
--- NOTE | 2022-05-13 06:00 | NURSING ---
Pt was restless, attempting to get out of bed and pulling at restraints. FLIGHT DECK OFFICER sat with patient but she still was irritated. Lab unable to draw from her. Haldol had to be given once more. Pt resting quietly.
[2022-05-13 07:49] LABS: Absolute Lymphocyte Count 0.85 X10^3/uL (0.83-4.51); Absolute Neutrophil Count 3.5 X10^3/uL (2.0-7.7); Basophil# 0.03 X10^3/uL; Basophil% 0.6 % (0-1); Eosinophil# 0.02 X10^3/uL; Eosinophils% 0.4 % (0-5); Hemoglobin 12.5 g/dL (12.0-15.0); Lymphocyte # 0.85 X10^3/ul (0.83-4.51); Lymphocyte % 17.3 % (19-41); Mean Corp Hgb Conc 33.8 g/dL (32-36); Mean Corpuscular Hgb 35.8 pg (27.0-32.0); Mean Platelet Vol. 10.7 fl (6.2-12.0); Monocyte% 10.2 % (0-10); NRBC Flagged by Analyzer 0 % (0-5); Neutrophil # 3.47 X10^3/uL (2.7-7.7); Neutrophil % 70.9 % (47-70); POSITIVE COUNT YES; Platelet Count 56 K/mm3 (150-450); RBC Distribution Width CV 11.9 % (11.6-14.6); RBC Distribution Width SD 46.9 fl (35.1-43.9); Red Blood Count 3.49 M/mm3 (4.2-5.4); White Blood Count 4.9 K/mm3 (4.4-11.0)
[2022-05-13 08:07] LABS: ALB/GLOB Ratio 0.8 RATIO (0.9-2.4); AST(SGOT) 113 U/L (15-37); Alanine Aminotransfer ALT/SGPT 49 U/L (13-56); Albumin, Serum 3.3 g/dL (3.2-5.0); Alkaline Phosphatase 135 U/L (45-117); Anion Gap 12 (5-15); BUN 12 mg/dL (7-18); BUN/Creat Ratio 22.9 RATIO (10-20); Chloride 104 mmol/L (98-107); Creatinine, Serum 0.52 mg/dL (0.55-1.02); EST Glomerular Filtration Rate 124 mL/min (>60); Est Glom Filt Rate - Afr Amer 150 mL/min (>60); Estimated Creatinine Clearance 45.78 ml/min; Globulin 3.9 g/dL (2.2-4.2); Glucose 86 mg/dL (74-106); Phosphorus 2.1 mg/dL (2.5-4.9); Potassium 3.6 mmol/L (3.5-5.1); Protein, Total 7.2 g/dL (6.4-8.2); Sodium Level 136 mmol/L (136-145); T4 Free Direct 1.39 ng/dL (0.76-1.46)
[2022-05-13 08:09] LABS: Platelet Estimate MOD DEC (ADEQ)
[2022-05-13 08:10] LABS: Differential Indicated SCAN CRITERIA MET
--- NOTE | 2022-05-13 08:20 | NURSING ---
Patient seems pleasant upon waking and alert and oriented x2 during assessment. Patient following commands and not attempting to pull at tubing/telemetry. Removed restraints at this time and assisted patient to bathroom and back to bed without additional assistance. Patient appears calm once back into bed. Did not reapply restraints at this time. Bed alarm turned on.
[2022-05-13] MEDS: Metoprolol Tartrate 25 MG Tablet PO ×2 (09:45→21:08)
[2022-05-13 12:59] LABS: Vitamin B12 579 pg/mL (211-911)
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
--- NOTE | 2022-05-13 13:29 | CT_ITS ---
STUDY: CT BRAIN WITHOUT CONTRAST REASON FOR EXAM: Female, 66 years old. Subdural hematoma RADIATION DOSAGE (If Supplied By Facility): CTDIvol = ( 44.99 ) mGy, DLP = ( 779.24 ) mGycm TECHNIQUE: Transaxial CT imaging of the brain was performed without administration of intravenous contrast material. Individualized dose optimization techniques were used for this CT. COMPARISON: Comparison is made with prior study dated 05/11/2022. Comparison is made with prior MRI of the brain dated 11/09/2022. FINDINGS: Normal soft tissue structures. Normal calvarium. There is mild cerebral atrophy with widening of the extra-axial spaces and ventricular dilatation. There are areas of decreased attenuation within the white matter tracts of the supratentorial brain, consistent with microvascular disease changes. Normal basal ganglia and thalami. Normal brainstem. Normal cerebellum. Faintly seen tiny isointense subdural hematomas overlying the right and left temporal lobes. There are no findings of an acute ischemic infarction. Atherosclerotic plaque formation of the vertebral arteries and cavernous portions of the internal carotid arteries bilaterally. Normal visualized paranasal sinuses. CT/Brain/Head without Contrast IMPRESSION: Chronic involutional changes of the brain. Findings in keeping with MRI findings suggestive of tiny isointense subdural hematomas overlying the left and right temporal lobes. Electronically Signed: Irineo Baptiste MD at 15:24 EST ,
[2022-05-13] MEDS: LORazepam 1 MG Tablet PO (13:40)
[2022-05-13] MEDS: LORazepam 2 MG/ML Syringe 1 MG IV (14:18)
[2022-05-13] MEDS: LORazepam 1 MG Tablet 0.5 MG PO ×3 (15:00→22:42)
[2022-05-13] MEDS: hydrOXYzine PAM 25 MG Capsule 50 MG PO ×2 (16:21→21:10)
--- NOTE | 2022-05-13 20:28 | PN_ITS ---
Subjective Subjective Patient is very confused and does not remember talking to me yesterday. She was not able to get a HIDA scan today due to altered mental status. Objective Data Objective Data Vital Signs: Vital Signs Temp Pulse Resp BP Pulse Ox O2 Del Method 99.0 F 119 H 16 129/82 H 97 Room Air 05/13/22 18:40 05/13/22 18:40 05/13/22 18:40 05/13/22 18:40 05/13/22 18:40 05/13/22 18:40 Oxygen Delivery Method Room Air Weight: 118 lb 6.212 oz Body Mass Index (BMI) 20.9 Intake & Output: Intake and Output for Last 24 Hours 05/11/22 05/12/22 05/13/22 23:59 23:59 23:59 Intake Total 1000 / 1000 710 / 710 345 / 345 Output Total 250 / 250 150 / 150 Balance 750 / 750 560 / 560 345 / 345 Lab / Micro Data Result Diagrams: 05/13/22 07:29 05/13/22 07:29 Labs: Laboratory Results - last 24 hr 05/13/22 05:41: Vitamin B12 579 05/13/22 05:41: Folate 12.40 05/13/22 07:29: WBC 4.9, RBC 3.49 L, Hgb 12.5, Hct 37.0, MCV 106.0 H, MCH 35.8 H , MCHC 33.8, RDW Std Deviation 46.9 H, RDW Coeff of Maira 11.9, Plt Count 56 L, MPV 10.7, Immature Gran % (Auto) 0.600, Neut % (Auto) 70.9 H, Lymph % (Auto) 17.3 L, [place] % (Auto) 10.2 H, Eos % (Auto) 0.4, Baso % (Auto) 0.6, Absolute Neuts (auto) 3.5, Absolute Lymphs (auto) 0.85, Nucleated RBC % 0, Platelet Estimate MOD DEC 05/13/22 07:29: Sodium 136, Potassium 3.6, Chloride 104, Carbon Dioxide 20.0 L, Anion Gap 12, BUN 12, Creatinine 0.52 L, Estim Creat Clear Calc 45.78, Est GFR (MDRD) Af Amer 150, Est GFR (MDRD) Non-Af 124, BUN/Creatinine Ratio 22.9 H, Glucose 86, Calcium 9.0, Phosphorus 2.1 L, Magnesium 2.0, Total Bilirubin 4.00 H , AST 113 H, ALT 49, Alkaline Phosphatase 135 H, Total Protein 7.2, Albumin 3.3, Globulin 3.9, Albumin/Globulin Ratio 0.8 L, Free T4 1.39 Radiography Diagnostic Testing: Radiology Impression Brain CT 05/13/22 13:29 IMPRESSION: Chronic involutional changes of the brain. Findings in keeping with MRI findings suggestive of tiny isointense subdural hematomas overlying the left and right temporal lobes. Electronically Signed: Irineo Baptiste MD at 15:24 EST , Physical Exam Const alert, no apparent distress, average body habitus, healthy appearing and well nourished General Appearance: cooperative, well kempt and well developed Orientation / Consciousness: awake, oriented to person and oriented to time HEENT normocephalic, head/scalp atraumatic, hearing grossly normal bilaterally and moist oral mucous membranes Eyes PERRL, EOMs intact bilaterally and conjunctivae normal Eyes Narrative: No scleral icterus Neck no lymphadenopathy, supple and no JVD Neck Narrative: Trachea midline, no thyroid enlargement Resp normal respiratory effort, no retractions, no use of accessory muscles and clear to auscultation bilaterally Auscultation: Negative for crackles, rales, rhonchi or wheezes Cardio regular rate, regular rhythm, S1 normal heart sound, S2 normal heart sound, no murmurs, no rub, no gallops and no clicks Cardio Narrative: Heart rate and rhythm is irregular GI normal to inspection, nondistended, normoactive bowel sounds, soft to palpation, non-tender and non-distended Extremity no clubbing, cyanosis or edema Extremity Narrative: 2+ pedal pulses Neuro CN's II-XII intact bilaterally, moves all extremities, no focal motor deficits and no sensory deficits noted Neuro Narrative: Mild generalized weakness noted on exam but no focal deficits, no tremor Sensorium / Orientation: awake, alert, oriented to person and oriented to time Speech: speech normal Psych Psych Narrative: pleasant but confused with regards to place Assessment & Plan Assessment/Plan (1) Alcoholic hepatitis: PLAN: Her labs are consistent with alcoholic hepatitis in the setting of a alcohol level of 25 upon admission. Her Madrey score is less than 32. I would not start her on steroids at this time due to her history of subdural hematoma. I will start her on Pentoxil filing 400 mg p.o. 3 times daily. (2) Cirrhosis: PLAN: At this time she has decompensated cirrhosis with mild fluid in her abdomen, encephalopathy and alcoholic hepatitis. She is a child Gage B, with a meld of 20. Recommend to follow INR. I will check her for hepatitis C (3) Abdominal fluid collection: PLAN: . The fluid collection could be an ongoing bile leak from her previous cholecystectomy. I would get a HIDA scan and if that is negative the fluid will have to be sampled to make sure there is no sign of infection. (4) Cognitive impairment: PLAN: I agree that she is likely experiencing metabolic encephalopathy possibly secondary to Warnicke's encephalopathy. I agree with high-dose B12, folic acid and thiamine. Also she will need Xifaxan 550 mg p.o. twice a day. Charges/Coding Visit Charges Inpatient E&M: 85686 Init Hosp L3
[2022-05-13] MEDS: RisperiDONE 1 MG Tablet PO (21:01)
[2022-05-14] VITALS (9 sets, daily range): BP systolic 110–120; BP diastolic 56–78; PULSE 79–118; RESP 16–18; TEMP 36.5–36.8; O2SAT 97–100
[2022-05-14] MEDS: LORazepam 1 MG Tablet 0.5 MG PO ×5 (02:55→18:39)
[2022-05-14 06:28] LABS: Absolute Lymphocyte Count 0.65 X10^3/uL (0.83-4.51); Absolute Neutrophil Count 3.4 X10^3/uL (2.0-7.7); Basophil# 0.02 X10^3/uL; Basophil% 0.4 % (0-1); Eosinophil# 0.04 X10^3/uL; Eosinophils% 0.9 % (0-5); Hematocrit 39.5 % (37-47); Hemoglobin 13.4 g/dL (12.0-15.0); Lymphocyte # 0.65 X10^3/ul (0.83-4.51); Lymphocyte % 14.2 % (19-41); Mean Corp Hgb Conc 33.9 g/dL (32-36); Mean Corpuscular Hgb 36.4 pg (27.0-32.0); Mean Corpuscular Volume 107.3 fL (81-99); Mean Platelet Vol. 10.7 fl (6.2-12.0); Monocyte# 0.44 X10^3/uL; Monocyte% 9.6 % (0-10); NRBC Flagged by Analyzer 0 % (0-5); Neutrophil % 74.2 % (47-70); POSITIVE COUNT YES; Platelet Count 54 K/mm3 (150-450); RBC Distribution Width SD 47.5 fl (35.1-43.9); Red Blood Count 3.68 M/mm3 (4.2-5.4); White Blood Count 4.6 K/mm3 (4.4-11.0)
[2022-05-14 07:07] LABS: ALB/GLOB Ratio 0.9 RATIO (0.9-2.4); AST(SGOT) 129 U/L (15-37); Alanine Aminotransfer ALT/SGPT 53 U/L (13-56); Albumin, Serum 3.6 g/dL (3.2-5.0); Alkaline Phosphatase 134 U/L (45-117); Anion Gap 13 (5-15); BUN 12 mg/dL (7-18); BUN/Creat Ratio 22.6 RATIO (10-20); Calcium,Total 8.9 mg/dL (8.5-10.1); Chloride 103 mmol/L (98-107); Creatinine, Serum 0.53 mg/dL (0.55-1.02); EST Glomerular Filtration Rate 122 mL/min (>60); Est Glom Filt Rate - Afr Amer 148 mL/min (>60); Estimated Creatinine Clearance 45.78 ml/min; Globulin 3.9 g/dL (2.2-4.2); Glucose 65 mg/dL (74-106); Phosphorus 3.1 mg/dL (2.5-4.9); Protein, Total 7.5 g/dL (6.4-8.2); Sodium Level 136 mmol/L (136-145)
[2022-05-14] MEDS: Folic Acid 1 MG Tablet PO (09:34)
[2022-05-14] MEDS: hydrOXYzine PAM 25 MG Capsule 50 MG PO ×2 (09:34→13:40)
[2022-05-14] MEDS: rifAXIMin 550 MG Tablet PO ×2 (09:34→23:09)
[2022-05-14] MEDS: Metoprolol Tartrate 25 MG Tablet PO ×2 (09:34→23:09)
[2022-05-14] MEDS: Potassium Chloride Oral Tablet 20 MEQ 40 MEQ PO (09:35)
[2022-05-14] MEDS: RisperiDONE 0.25 MG Tablet PO (09:35)
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
[2022-05-14] MEDS: Latanoprost 0.005% 1 Bottle 1 DRP EACH EYE (23:07)
[2022-05-14] MEDS: RisperiDONE 1 MG Tablet PO (23:13)
[2022-05-15] MEDS: LORazepam 1 MG Tablet 0.5 MG PO ×6 (00:10→23:34)
[2022-05-15] MEDS: hydrOXYzine PAM 25 MG Capsule 50 MG PO (02:38)
[2022-05-15 05:00] VITALS: BP 125/70; PULSE 105; RESP 18; TEMP 36.8; O2SAT 97
[2022-05-15 05:31] LABS: Absolute Neutrophil Count 3.4 X10^3/uL (2.0-7.7); Basophil# 0.03 X10^3/uL; Basophil% 0.6 % (0-1); Eosinophil# 0.13 X10^3/uL; Eosinophils% 2.6 % (0-5); Hemoglobin 12.4 g/dL (12.0-15.0); Mean Corp Hgb Conc 33.5 g/dL (32-36); Mean Corpuscular Hgb 35.9 pg (27.0-32.0); Mean Corpuscular Volume 107.2 fL (81-99); Mean Platelet Vol. 9.9 fl (6.2-12.0); Monocyte# 0.57 X10^3/uL; Monocyte% 11.4 % (0-10); NRBC Flagged by Analyzer 0 % (0-5); Neutrophil # 3.44 X10^3/uL (2.7-7.7); POSITIVE COUNT YES; Platelet Count 69 K/mm3 (150-450); RBC Distribution Width CV 12.1 % (11.6-14.6); RBC Distribution Width SD 46.8 fl (35.1-43.9); Red Blood Count 3.45 M/mm3 (4.2-5.4)
[2022-05-15 06:13] LABS: ALB/GLOB Ratio 0.9 RATIO (0.9-2.4); AST(SGOT) 130 U/L (15-37); Alanine Aminotransfer ALT/SGPT 57 U/L (13-56); Albumin, Serum 3.1 g/dL (3.2-5.0); Alkaline Phosphatase 118 U/L (45-117); Anion Gap 11 (5-15); BUN 14 mg/dL (7-18); BUN/Creat Ratio 26.7 RATIO (10-20); Calcium,Total 8.8 mg/dL (8.5-10.1); Chloride 108 mmol/L (98-107); Creatinine, Serum 0.52 mg/dL (0.55-1.02); EST Glomerular Filtration Rate 124 mL/min (>60); Est Glom Filt Rate - Afr Amer 150 mL/min (>60); Estimated Creatinine Clearance 45.78 ml/min; Globulin 3.6 g/dL (2.2-4.2); Glucose 72 mg/dL (74-106); Potassium 3.1 mmol/L (3.5-5.1); Protein, Total 6.7 g/dL (6.4-8.2); Sodium Level 139 mmol/L (136-145)
[2022-05-15] MEDS: Potassium Chloride Oral Tablet 20 MEQ 60 MEQ PO (12:23)
[2022-05-15 12:24] VITALS: BP 120/64; PULSE 106
[2022-05-15] MEDS: Folic Acid 1 MG Tablet PO (12:24)
[2022-05-15] MEDS: RisperiDONE 0.25 MG Tablet PO (12:24)
[2022-05-15] MEDS: Metoprolol Tartrate 25 MG Tablet PO ×2 (12:24→20:56)
[2022-05-15 12:26] VITALS: BP 120/64; PULSE 105; RESP 16; TEMP 36.4; O2SAT 97
[2022-05-15] MEDS: Pentoxifylline 400 MG Tablet PO ×2 (12:27→16:59)
[2022-05-15] MEDS: rifAXIMin 550 MG Tablet PO ×2 (12:27→20:56)
[2022-05-15] MEDS: Lactulose 20 GM/30 ML UDC PO ×2 (12:28→20:55)
[2022-05-15 16:56] VITALS: BP 107/72; PULSE 105; RESP 16; TEMP 36.6; O2SAT 100
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
[2022-05-15] MEDS: LORazepam 2 MG/ML Syringe 1 MG IV (20:15)
[2022-05-15] MEDS: Latanoprost 0.005% 1 Bottle 1 DRP EACH EYE (20:52)
[2022-05-15 20:56] VITALS: BP 120/71; PULSE 91
[2022-05-15] MEDS: RisperiDONE 1 MG Tablet PO (20:56)
[2022-05-15 21:05] VITALS: BP 120/71; PULSE 91; RESP 18; TEMP 36.9; O2SAT 97
[2022-05-16] VITALS (7 sets, daily range): BP systolic 114–127; BP diastolic 61–78; PULSE 67–96; RESP 16–18; TEMP 36.6–37.1; O2SAT 94–99
[2022-05-16 06:42] LABS: Absolute Lymphocyte Count 0.97 X10^3/uL (0.83-4.51); Absolute Neutrophil Count 2.8 X10^3/uL (2.0-7.7); Basophil# 0.04 X10^3/uL; Basophil% 0.8 % (0-1); Eosinophil# 0.16 X10^3/uL; Eosinophils% 3.4 % (0-5); Hematocrit 38.2 % (37-47); Hemoglobin 12.9 g/dL (12.0-15.0); Lymphocyte # 0.97 X10^3/ul (0.83-4.51); Lymphocyte % 20.4 % (19-41); Mean Corp Hgb Conc 33.8 g/dL (32-36); Mean Corpuscular Hgb 35.6 pg (27.0-32.0); Mean Corpuscular Volume 105.5 fL (81-99); Mean Platelet Vol. 10.3 fl (6.2-12.0); Monocyte# 0.79 X10^3/uL; Monocyte% 16.6 % (0-10); NRBC Flagged by Analyzer 0 % (0-5); Neutrophil # 2.78 X10^3/uL (2.7-7.7); Neutrophil % 58.6 % (47-70); POSITIVE COUNT YES; Platelet Count 74 K/mm3 (150-450); RBC Distribution Width CV 12.2 % (11.6-14.6); RBC Distribution Width SD 46.9 fl (35.1-43.9); Red Blood Count 3.62 M/mm3 (4.2-5.4); White Blood Count 4.8 K/mm3 (4.4-11.0)
--- NOTE | 2022-05-16 06:50 | NURSING ---
Patient drowsy this morning and resistive to care, pt checked & and readjusted in bed. PO Scheduled Ativan held this AM d/t patient drowsiness.
[2022-05-16 07:15] LABS: ALB/GLOB Ratio 0.8 RATIO (0.9-2.4); AST(SGOT) 108 U/L (15-37); Alanine Aminotransfer ALT/SGPT 51 U/L (13-56); Albumin, Serum 3.1 g/dL (3.2-5.0); Alkaline Phosphatase 124 U/L (45-117); Anion Gap 11 (5-15); BUN 12 mg/dL (7-18); BUN/Creat Ratio 18.3 RATIO (10-20); Calcium,Total 9.1 mg/dL (8.5-10.1); Chloride 109 mmol/L (98-107); Creatinine, Serum 0.65 mg/dL (0.55-1.02); EST Glomerular Filtration Rate 96 mL/min (>60); Est Glom Filt Rate - Afr Amer 116 mL/min (>60); Estimated Creatinine Clearance 45.78 ml/min; Globulin 3.7 g/dL (2.2-4.2); Glucose 92 mg/dL (74-106); Magnesium 1.9 mg/dL (1.6-2.6); Phosphorus 2.3 mg/dL (2.5-4.9); Potassium 3.6 mmol/L (3.5-5.1); Protein, Total 6.8 g/dL (6.4-8.2); Sodium Level 138 mmol/L (136-145)
--- NOTE | 2022-05-16 09:00 | PCM.PROGNOTE ---
Subjective Subjective No issues overnight. She is tolerating a diet. She scheduled for transfer today. Objective Data Objective Data Vital Signs: Vital Signs Temp Pulse Resp BP Pulse Ox O2 Del Method 97.8 F 88 18 118/78 95 Room Air 05/16/22 15:49 05/16/22 15:49 05/16/22 15:49 05/16/22 15:49 05/16/22 15:49 05/16/22 15:49 Oxygen Delivery Method Room Air Weight: 118 lb 6.212 oz Body Mass Index (BMI) 20.9 Intake & Output: Intake and Output for Last 24 Hours 05/14/22 05/15/22 05/16/22 23:59 23:59 23:59 Intake Total 270 / 270 720 / 720 552.5 / 552.5 Balance 270 / 270 720 / 720 552.5 / 552.5 Lab / Micro Data Result Diagrams: 05/16/22 06:15 05/16/22 06:15 Labs: Laboratory Results - last 24 hr 05/16/22 06:15: WBC 4.8, RBC 3.62 L, Hgb 12.9, Hct 38.2, MCV 105.5 H, MCH 35.6 H, MCHC 33.8, RDW Std Deviation 46.9 H, RDW Coeff of Maira 12.2, Plt Count 74 L, MPV 10.3, Immature Gran % (Auto) 0.200, Neut % (Auto) 58.6, Lymph % (Auto) 20.4, [place] % (Auto) 16.6 H, Eos % (Auto) 3.4, Baso % (Auto) 0.8, Absolute Neuts (auto) 2.8, Absolute Lymphs (auto) 0.97, Nucleated RBC % 0 05/16/22 06:15: Sodium 138, Potassium 3.6, Chloride 109 H, Carbon Dioxide 18.0 L, Anion Gap 11, BUN 12, Creatinine 0.65, Estim Creat Clear Calc 45.78, Est GFR (MDRD) Af Amer 116, Est GFR (MDRD) Non-Af 96, BUN/Creatinine Ratio 18.3, Glucose 92, Calcium 9.1, Phosphorus 2.3 L, Magnesium 1.9, Total Bilirubin 2.00 H, AST 108 H, ALT 51, Alkaline Phosphatase 124 H, Total Protein 6.8, Albumin 3.1 L, Globulin 3.7, Albumin/Globulin Ratio 0.8 L Physical Exam Const alert, oriented x3, no apparent distress, average body habitus, healthy appearing and well nourished Constitutional Narrative: Older white female lying in bed sleeping, resting comfortably at the time of my evaluation and awakens easily oriented to self and time but not place, told me she was at home, able to add simple computations and follow simple instructions. HEENT normocephalic, head/scalp atraumatic, hearing grossly normal bilaterally and moist oral mucous membranes HEENT Narrative: No meningismus Neck General: trachea midline Resp normal respiratory effort, no retractions, no use of accessory muscles and clear to auscultation bilaterally Auscultation: Negative for crackles, rales, rhonchi or wheezes Cardio regular rate, regular rhythm, S1 normal heart sound, S2 normal heart sound, no murmurs, no rub, no gallops and no clicks GI normal to inspection, nondistended, normoactive bowel sounds, soft to palpation, non-tender and non-distended Extremity no clubbing, cyanosis or edema Extremity Narrative: 2+ pedal pulses Neuro moves all extremities, no focal motor deficits and no sensory deficits noted Neuro Narrative: Mild generalized weakness noted on exam but no focal deficits, no significant tremor today Sensorium / Orientation: awake, alert, oriented to person, oriented to place and oriented to time Speech: speech normal Psych Psych Narrative: Remains confused Assessment & Plan Assessment/Plan (1) Alcoholic hepatitis: PLAN: Her labs are consistent with alcoholic hepatitis in the setting of a alcohol level of 25 upon admission. Her Madrey score is less than 32. I would not start her on steroids at this time due to her history of subdural hematoma. I will start her on Pentoxil filing 400 mg p.o. 3 times daily. (2) Cirrhosis: PLAN: At this time she has decompensated cirrhosis with mild fluid in her abdomen, encephalopathy and alcoholic hepatitis. She is a child Gage B, with a meld of 20. Recommend to follow INR. I will check her for hepatitis C (3) Abdominal fluid collection: PLAN: . The fluid collection could be an ongoing bile leak from her previous cholecystectomy. I would get a HIDA scan and if that is negative the fluid will have to be sampled to make sure there is no sign of infection. (4) Cognitive impairment: PLAN: I agree that she is likely experiencing metabolic encephalopathy possibly secondary to Warnicke's encephalopathy. I agree with high-dose B12, folic acid and thiamine. Also she will need Xifaxan 550 mg p.o. twice a day. Charges/Coding Visit Charges Inpatient E&M: 48230 Subs Hosp L3
[2022-05-16] MEDS: 0.9% Saline Lock 10 ML Syringe IV (09:34)
[2022-05-16] MEDS: Metoprolol Tartrate 25 MG Tablet PO ×2 (10:35→20:55)
[2022-05-16] MEDS: RisperiDONE 0.25 MG Tablet PO (10:35)
[2022-05-16] MEDS: LORazepam 1 MG Tablet 0.5 MG PO ×3 (10:35→23:15)
[2022-05-16] MEDS: Folic Acid 1 MG Tablet PO (10:37)
[2022-05-16] MEDS: Thiamine Hydrochloride 100 MG Tablet 250 MG PO (10:37)
[2022-05-16] MEDS: Pentoxifylline 400 MG Tablet PO ×3 (10:37→16:08)
[2022-05-16] MEDS: rifAXIMin 550 MG Tablet PO ×2 (10:37→20:56)
[2022-05-16] MEDS: Lactulose 20 GM/30 ML UDC PO ×2 (10:41→20:55)
[2022-05-16] MEDS: Ensure Plus High Protein 120 ML LIQUID PO ×2 (12:27→16:08)
[2022-05-16] MEDS: hydrOXYzine PAM 25 MG Capsule 50 MG PO ×2 (12:28→17:01)
--- NOTE | 2022-05-16 19:23 | PCM.PN.HOSP ---
Subjective Subjective Patient was seen and examined today, at times she acted confused and agitated, she was able to elicit examiner however the year and that she was in the hospital at [facility]. I discussed her care with case management today, I gave permission for her to be evaluated by crisis regarding possible [facility] placement. Objective Data Objective Data Vital Signs: Vital Signs Temp Pulse Resp BP Pulse Ox O2 Del Method 97.8 F 88 18 118/78 95 Room Air 05/16/22 15:49 05/16/22 15:49 05/16/22 15:49 05/16/22 15:49 05/16/22 15:49 05/16/22 15:49 Oxygen Delivery Method Room Air Weight: 53.7 kg Body Mass Index (BMI) 20.9 Intake & Output: Intake and Output for Last 24 Hours 05/14/22 05/15/22 05/16/22 23:59 23:59 23:59 Intake Total 270 / 270 720 / 720 1052.5 / 1052.5 Balance 270 / 270 720 / 720 1052.5 / 1052.5 Lab / Micro Data Result Diagrams: 05/16/22 06:15 05/16/22 06:15 Labs: Laboratory Results - last 24 hr 05/16/22 06:15: WBC 4.8, RBC 3.62 L, Hgb 12.9, Hct 38.2, MCV 105.5 H, MCH 35.6 H, MCHC 33.8, RDW Std Deviation 46.9 H, RDW Coeff of Maira 12.2, Plt Count 74 L, MPV 10.3, Immature Gran % (Auto) 0.200, Neut % (Auto) 58.6, Lymph % (Auto) 20.4, [place] % (Auto) 16.6 H, Eos % (Auto) 3.4, Baso % (Auto) 0.8, Absolute Neuts (auto) 2.8, Absolute Lymphs (auto) 0.97, Nucleated RBC % 0 05/16/22 06:15: Sodium 138, Potassium 3.6, Chloride 109 H, Carbon Dioxide 18.0 L, Anion Gap 11, BUN 12, Creatinine 0.65, Estim Creat Clear Calc 45.78, Est GFR (MDRD) Af Amer 116, Est GFR (MDRD) Non-Af 96, BUN/Creatinine Ratio 18.3, Glucose 92, Calcium 9.1, Phosphorus 2.3 L, Magnesium 1.9, Total Bilirubin 2.00 H, AST 108 H, ALT 51, Alkaline Phosphatase 124 H, Total Protein 6.8, Albumin 3.1 L, Globulin 3.7, Albumin/Globulin Ratio 0.8 L Physical Exam Const alert Constitutional Narrative: Patient is alert but her affect is inappropriate, patient is talking about moving things in her room, patient knows she is in the hospital and she knows what year it is. General Appearance: cooperative, well kempt and well developed Orientation / Consciousness: awake, oriented to person and oriented to place HEENT normocephalic, head/scalp atraumatic and moist oral mucous membranes Eyes PERRL, EOMs intact bilaterally and conjunctivae normal Neck supple, no JVD, thyroid normal and no carotid bruits General: trachea midline Resp normal respiratory effort, no retractions, no use of accessory muscles and clear to auscultation bilaterally Auscultation: Negative for rales, rhonchi or wheezes Cardio regular rate, regular rhythm, S1 normal heart sound, S2 normal heart sound, no murmurs, no rub and no gallops GI normal to inspection, nondistended, normoactive bowel sounds, soft to palpation, non-tender and non-distended Extremity no clubbing, cyanosis or edema Skin no rashes or lesions noted General Skin Exam: no breakdown Neuro CN's II-XII intact bilaterally, no focal motor deficits and no sensory deficits noted Sensorium / Orientation: awake, alert, oriented to person and oriented to place Psych Psych Narrative: Patient's affect is not normal, she is talking about moving things in her room, she does not carry on a lucid conversation with this examiner Assessment & Plan Assessment/Plan (1) Toxic metabolic encephalopathy: PLAN: Plan 1. Seizure disorder-patient will continue Keppra at this time #2 subdural hematoma-no treatment is necessary at this time, she was seen by teleneurology for consultation #3 metabolic encephalopathy-exact etiology unclear, patient may have a backdrop of dementia, crisis will see the patient for evaluation of [facility] placement, continue risperidone at this time #4 cirrhosis of the liver-complicates care, medical course, recovery, and prognosis #5 paroxysmal A. fib-patient remains in normal sinus rhythm at this time, due to her subdural hematomas, patient cannot be anticoagulated at this time, rate limiting medications will be continued Total clinical time spent by myself addressing the patient's medical issues, reviewing all the data, and collaborating with patient's care team: 35 mins Charges/Coding Visit Charges Inpatient E&M: 37773 Subs Hosp L2
[2022-05-16] MEDS: RisperiDONE 1 MG Tablet PO (20:56)
[2022-05-16] MEDS: Latanoprost 0.005% 1 Bottle 1 DRP EACH EYE (20:56)
[2022-05-17] VITALS (9 sets, daily range): BP systolic 93–108; BP diastolic 61–70; PULSE 71–96; RESP 15–18; TEMP 36.7–37.2; O2SAT 96–100
[2022-05-17] MEDS: LORazepam 1 MG Tablet 0.5 MG PO (06:23)
[2022-05-17] MEDS: RisperiDONE 0.25 MG Tablet PO (10:45)
[2022-05-17] MEDS: Pentoxifylline 400 MG Tablet PO ×3 (10:45→18:10)
[2022-05-17] MEDS: Folic Acid 1 MG Tablet PO (10:45)
[2022-05-17] MEDS: Metoprolol Tartrate 25 MG Tablet PO ×2 (10:45→21:40)
[2022-05-17] MEDS: Thiamine Hydrochloride 100 MG Tablet 250 MG PO (10:46)
[2022-05-17] MEDS: rifAXIMin 550 MG Tablet PO ×2 (10:46→21:40)
[2022-05-17] MEDS: Lactulose 20 GM/30 ML UDC PO ×2 (10:47→21:41)
--- NOTE | 2022-05-17 10:53 | CASEMGMT ---
VIC updated scrap charger Sha that crisis will need to be called on patient. Sha agreed to call crisis. VIC remains available if needs arise. Reena YANES
[2022-05-17] MEDS: Ensure Plus High Protein 120 ML LIQUID PO ×2 (12:57→18:11)
[2022-05-17] MEDS: 0.9% Saline Lock 10 ML Syringe IV ×3 (12:57→21:40)
[2022-05-17] MEDS: LORazepam 1 MG Tablet PO ×2 (12:58→21:40)
--- NOTE | 2022-05-17 14:12 | CASEMGMT ---
VIC was advised by Antonina at Crisis that she is recommending inpatient psych for patient. Reena YANES
--- NOTE | 2022-05-17 17:47 | PCM.PN.HOSP ---
Subjective Subjective Was seen and examined today, she does not appear agitated, I have decided to stop her antipsychotics and place her on Ativan on a program basis. She was seen by crisis intervention today and deemed suitable for transfer to a psych facility-this is pending at this time, I briefly talked with her brother today in person, I talked with her son by phone, I am not sure the basis of her confusion at this time. Objective Data Objective Data Vital Signs: Vital Signs Temp Pulse Resp BP Pulse Ox O2 Del Method 98.2 F 86 17 93/61 98 Room Air 05/17/22 17:13 05/17/22 17:13 05/17/22 17:13 05/17/22 17:13 05/17/22 17:13 05/17/22 17:13 Oxygen Delivery Method Room Air Weight: 53.7 kg Body Mass Index (BMI) 20.9 Intake & Output: Intake and Output for Last 24 Hours 05/15/22 05/16/22 05/17/22 23:59 23:59 23:59 Intake Total 720 / 720 1157.5 / 1157.5 505 / 505 Balance 720 / 720 1157.5 / 1157.5 505 / 505 Lab / Micro Data Result Diagrams: 05/16/22 06:15 05/16/22 06:15 Physical Exam Const alert and no apparent distress Constitutional Narrative: It appears her stated age, she replies appropriately to simple questions, there is some mild confusion General Appearance: cooperative, well kempt and well developed Orientation / Consciousness: awake, oriented to person and oriented to place HEENT normocephalic, head/scalp atraumatic and moist oral mucous membranes Eyes PERRL, EOMs intact bilaterally and conjunctivae normal Neck supple, no JVD, thyroid normal and no carotid bruits General: trachea midline Resp normal respiratory effort, no retractions, no use of accessory muscles and clear to auscultation bilaterally Auscultation: Negative for rales, rhonchi or wheezes Cardio regular rate, regular rhythm, no murmurs, no rub and no gallops GI normal to inspection, nondistended, normoactive bowel sounds, soft to palpation, non-tender and non-distended Extremity no clubbing, cyanosis or edema Skin no rashes or lesions noted General Skin Exam: no breakdown Neuro CN's II-XII intact bilaterally, moves all extremities, no focal motor deficits and no sensory deficits noted Sensorium / Orientation: awake and alert Speech: speech normal Psych Psych Narrative: Patient has flat affect Assessment & Plan Assessment/Plan (1) Seizure: (2) Toxic metabolic encephalopathy: PLAN: Plan 1. Seizure disorder-patient will continue Keppra at this time, I have changed the dosage to oral #2 subdural hematoma-no treatment is necessary at this time, she was seen by teleneurology for consultation #3 metabolic encephalopathy-exact etiology unclear, patient may have a backdrop of dementia, crisis feel she is appropriate for [facility] placement, I talked to the son at length tonbruna by phone, he feels the patient needs to go somewhere at the time of discharge from the hospital either a long-term facility or [facility] psych unit. I will reevaluate the patient tomorrow to see in my opinion where I feel she should be transferred to. #4 cirrhosis of the liver-complicates care, medical course, recovery, and prognosis #5 paroxysmal A. fib-patient remains in normal sinus rhythm at this time, due to her subdural hematomas, patient cannot be anticoagulated at this time, rate limiting medications will be continued Total clinical time spent by myself addressing the patient's medical issues, reviewing all the data, and collaborating with patient's care team: 37 mins Charges/Coding Visit Charges Inpatient E&M: 93286 Subs Hosp L2
--- NOTE | 2022-05-17 19:12 | CM.ED ---
SW spoke to Antonina from Crisis. Patient has been referred to [facility]. Reena YANES
[2022-05-17] MEDS: Latanoprost 0.005% 1 Bottle 1 DRP EACH EYE (21:40)
[2022-05-17] MEDS: levETIRAcetam 500 MG Tablet PO (21:40)
--- NOTE | 2022-05-17 21:43 | NURSING ---
Per Sandee from [facility] due to patient extensive medical history the doctor detention officer has denied patient acceptance made Naye BRIONES aware
[2022-05-18] VITALS (10 sets, daily range): BP systolic 96–119; BP diastolic 56–78; PULSE 87–117; RESP 16–18; TEMP 36.8–36.9; O2SAT 94–97
[2022-05-18] MEDS: hydrOXYzine PAM 25 MG Capsule 50 MG PO ×2 (00:25→22:52)
[2022-05-18] MEDS: Ondansetron 4 MG/2 ML Vial IV (00:25)
[2022-05-18] MEDS: 0.9% Saline Lock 10 ML Syringe IV ×3 (00:25→21:29)
[2022-05-18] MEDS: Calcium Carbonate 500 MG Tablet 1000 MG PO (01:37)
--- NOTE | 2022-05-18 01:48 | NURSING ---
Spoke with Angelina from Crisis, updated this RN that pt was denied with [facility]. Awaiting for [facility] response, pt might be here for a while.
[2022-05-18] MEDS: LORazepam 2 MG/ML Syringe 1 MG IV (03:11)
[2022-05-18] MEDS: Ensure Plus High Protein 120 ML LIQUID PO ×3 (10:33→17:34)
[2022-05-18] MEDS: levETIRAcetam 500 MG Tablet PO ×2 (10:35→21:29)
[2022-05-18] MEDS: rifAXIMin 550 MG Tablet PO ×2 (10:35→21:29)
[2022-05-18] MEDS: Thiamine Hydrochloride 100 MG Tablet 250 MG PO (10:36)
[2022-05-18] MEDS: Folic Acid 1 MG Tablet PO (10:36)
[2022-05-18] MEDS: Pentoxifylline 400 MG Tablet PO ×3 (10:36→17:34)
[2022-05-18] MEDS: Lactulose 20 GM/30 ML UDC PO ×2 (10:37→21:29)
[2022-05-18] MEDS: Metoprolol Tartrate 25 MG Tablet PO ×2 (10:37→21:29)
--- NOTE | 2022-05-18 10:37 | NURSING ---
Angelina from crisis called with updates. Patient has been declined by [facility], [facility], and [facility]. Currently pending review at [facility] for Psych[facility].
[2022-05-18] MEDS: LORazepam 1 MG Tablet PO ×2 (13:06→21:29)
--- NOTE | 2022-05-18 16:52 | PN.HOSP_ITS ---
Subjective Subjective Patient was seen and examined today, she is alert and she is able to carry on conversation with this examiner, nursing states that at times she becomes confused but she is not agitated. I do not think the patient is appropriate for [facility] placement at this time, I talked with the son and I feel the best plan is to try to get the patient into a halfway facility for short-term rehab services. Patient does not object believe this either. Objective Data Objective Data Vital Signs: Vital Signs Temp Pulse Resp BP Pulse Ox O2 Del Method 98.5 F 87 17 119/78 95 Room Air 05/18/22 10:30 05/18/22 14:59 05/18/22 10:30 05/18/22 10:30 05/18/22 10:30 05/18/22 10:30 Oxygen Delivery Method Room Air Weight: 53.7 kg Body Mass Index (BMI) 20.9 Intake & Output: Intake and Output for Last 24 Hours 05/16/22 05/17/22 05/18/22 23:59 23:59 23:59 Intake Total 1157.5 / 1157.5 505 / 505 440 / 440 Balance 1157.5 / 1157.5 505 / 505 440 / 440 Lab / Micro Data Result Diagrams: 05/16/22 06:15 05/16/22 06:15 Physical Exam Const alert, oriented x3, no apparent distress, average body habitus and healthy appearing General Appearance: cooperative, well kempt and well developed Orientation / Consciousness: awake, oriented to person, oriented to place and oriented to time HEENT normocephalic, head/scalp atraumatic and moist oral mucous membranes Eyes PERRL, EOMs intact bilaterally and conjunctivae normal Neck supple, no JVD and thyroid normal General: trachea midline Resp normal respiratory effort, no retractions, no use of accessory muscles and clear to auscultation bilaterally Auscultation: Negative for rales, rhonchi or wheezes Cardio regular rate, regular rhythm, S1 normal heart sound, S2 normal heart sound, no murmurs, no rub and no gallops GI normal to inspection, nondistended, normoactive bowel sounds, soft to palpation, non-tender and non-distended Extremity no clubbing, cyanosis or edema Skin no rashes or lesions noted General Skin Exam: no breakdown Neuro oriented x3, CN's II-XII intact bilaterally, moves all extremities, no focal motor deficits and no sensory deficits noted Sensorium / Orientation: awake, alert, oriented to person, oriented to place and oriented to time Speech: speech normal Psych affect normal Assessment & Plan Assessment/Plan (1) Seizure: (2) Toxic metabolic encephalopathy: PLAN: Plan 1. Seizure disorder-patient will continue Keppra at this time #2 subdural hematoma-no treatment is necessary at this time, she was seen by teleneurology for consultation #3 metabolic encephalopathy-exact etiology unclear, patient may have a backdrop of dementia, patient is more appropriate today and is able to carry on conversation with this examiner, patient may need short-term rehab services such as a skilled extended care facility, I will talk with case management tomorrow #4 cirrhosis of the liver-complicates care, medical course, recovery, and prognosis #5 paroxysmal A. fib-patient remains in normal sinus rhythm at this time, due to her subdural hematomas, patient cannot be anticoagulated at this time, rate limiting medications will be continued Total clinical time spent by myself addressing the patient's medical issues, reviewing all the data, and collaborating with patient's care team: 38 mins Charges/Coding Visit Charges Inpatient E&M: 93608 Subs Hosp L2
[2022-05-18] MEDS: Latanoprost 0.005% 1 Bottle 1 DRP EACH EYE (21:31)
[2022-05-19] VITALS (10 sets, daily range): BP systolic 80–117; BP diastolic 55–76; PULSE 79–105; RESP 15–18; TEMP 36.6–37.3; O2SAT 92–98
[2022-05-19] MEDS: LORazepam 2 MG/ML Syringe 1 MG IV (00:22)
[2022-05-19] MEDS: 0.9% Saline Lock 10 ML Syringe IV (00:23)
[2022-05-19] MEDS: RisperiDONE 1 MG Tablet PO (02:28)
[2022-05-19] MEDS: LORazepam 1 MG Tablet PO ×3 (05:24→21:03)
--- NOTE | 2022-05-19 09:27 | CASEMGMT ---
Social Work SW called Crisis at [facility], as yesterday the physician had cancelled the referral to crisis, since pt had been closer to baseline when he saw her. However, pt was again agitated last evening. As per physician, pt should continue to be followed by crisis for placement. SW spoke w/Angelina, explained the above. They will continue to work on placement for pt. Physician spoke to son and updated him. He indicated to physician that pt's POA papers are at the can worker's office if Deon Varghese. SW called([phone]), requested the POA papers. They are going to look to see if they have them and let SW know. SHAR Mejia
[2022-05-19] MEDS: rifAXIMin 550 MG Tablet PO ×2 (12:18→21:02)
[2022-05-19] MEDS: Thiamine Hydrochloride 100 MG Tablet 250 MG PO (12:18)
[2022-05-19] MEDS: Metoprolol Tartrate 25 MG Tablet PO ×2 (12:19→21:02)
[2022-05-19] MEDS: Pentoxifylline 400 MG Tablet PO ×2 (12:19→17:37)
[2022-05-19] MEDS: Lactulose 20 GM/30 ML UDC PO (12:20)
[2022-05-19] MEDS: levETIRAcetam 500 MG Tablet PO ×2 (12:20→21:01)
[2022-05-19] MEDS: Folic Acid 1 MG Tablet PO (12:20)
[2022-05-19] MEDS: Ensure Plus High Protein 120 ML LIQUID PO ×2 (12:26→17:37)
--- NOTE | 2022-05-19 12:41 | NURSING ---
Azul at [facility] called and accepted the patient under the care of Dr. Hand. Zechariah to set up transport and call report.
--- NOTE | 2022-05-19 12:53 | DCINST_ITS ---
Discharge Instructions Diet Discharge Diet: No restrictions Activity Discharge Activity: Return to Normal Activity Weight Bearing Status: Full weight bearing Follow Up Care Test Results: Test results from this visit will be discussed in further detail at your follow- up appointment, if applicable. Discharge Plan Admission Admit Date/Time: 05/12/22 08:30 Primary Reason for Your Visit: seizure disorder, encephalopathy, subdural hematoma, paroxysmal a-fib Attending Provider: Rico Oneal Primary Care Provider: Trevor Guerra Consulting Providers: Rico Oneal ; Ju Newberry Discharge Orders/Prescriptions Prescriptions: New acetaminophen [Tylenol] 325 mg Tablet 650 mg PO Q6H PRN PRN (Reason: Pain 1-10 Or Fever >100.7) Qty: 0 0RF calcium carbonate 200 mg calcium (500 mg) Tablet,Chewable 1,000 mg PO Q4H PRN PRN (Reason: dyspepsia, 1st) Qty: 0 0RF Ensure Plus High Protein 0.08 gram-1.5 kcal/mL Liquid 120 ml PO TIDCM Qty: 0 0RF levetiracetam 500 mg Tablet 500 mg PO BID Qty: 0 0RF lorazepam 1 mg Tablet 1 mg PO Q8H Qty: 0 0RF hydroxyzine pamoate 25 mg Capsule 50 mg PO Q4H PRN PRN (Reason: mild anxiety) Qty: 0 0RF metoprolol tartrate 25 mg Tablet 25 mg PO BID Qty: 0 0RF lactulose 20 gram/30 mL Solution 20 g PO BID Qty: 0 0RF Continued latanoprost 0.005 % drops 1 drp EACH EYE QHS Label Comments: INSTILL 1 DROP INTO BOTH EYES AT BEDTIME Discontinued multivitamin,[id number] 1 TABLET tablet 1 tab PO DAILYCM Label Comments: vitamin Referrals / Follow Up: Trevor Guerra MD [Primary Care Provider] - Disposition Disposition (needs filled in before D/C Order can be placed): Psychiatric Hospital or Unit
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
--- NOTE | 2022-05-19 13:11 | NURSING ---
son notified has been accepted at [facility]
--- NOTE | 2022-05-19 15:48 | NURSING ---
called facility they stated nurse will call back for report
--- NOTE | 2022-05-19 15:53 | NURSING ---
I just spoke to Sydnee with [facility] our ETA was 1600 and now is 1700/1730.
--- NOTE | 2022-05-19 17:52 | NURSING ---
I called [facility] to get an ETA since our p/u time was scheduled for 1700/1730 and the ETA is now 1900.
--- NOTE | 2022-05-19 18:35 | NURSING ---
ANABEL FROM [facility] JUST CALLED TO LET US KNOW THE ETA HAS ONCE AGAIN BEEN PUSHED BACK FROM 1900 TO 1999/2029.
--- NOTE | 2022-05-19 18:38 | NURSING ---
Report called to facility j[facility] N[facility]. [phone]
== END 2022-05-19 21:30 | DRG 64 ==
LOC: ED 18:46 → PCU 20:08
PROVIDERS: Hospitalist; Internal Medicine; Admitting Provider Internal Medicine; Emergency Provider Emergency Medicine; PCP Family Medicine; Visit Provider Internal Medicine
DX: I62.02 Nontraumatic subacute subdural hemorrhage (principal); G92.8 Other toxic encephalopathy; E43 Unspecified severe protein-calorie malnutrition; E51.2 Wernicke's encephalopathy; K70.31 Alcoholic cirrhosis of liver with ascites; D69.6 Thrombocytopenia, unspecified; K70.10 Alcoholic hepatitis without ascites; I48.0 Paroxysmal atrial fibrillation; R56.9 Unspecified convulsions; F10.21 Alcohol dependence, in remission; I10 Essential (primary) hypertension; E87.6 Hypokalemia; R45.1 Restlessness and agitation; R73.9 Hyperglycemia, unspecified; H40.9 Unspecified glaucoma; Y90.0 Blood alcohol level of less than 20 mg/100 ml; Z68.20 Body mass index [BMI] 20.0-20.9, adult; Z79.899 Other long term (current) drug therapy; Z87.820 Personal history of traumatic brain injury
CPT/HCPCS: 36415; 70450; 70551; 71045; 74176; 76705; 80053; 80307; 81001; 82077; 82140; 82550; 82607; 82746; 82962; 83735; 84100; 84146; 84439; 84443; 84484; 85025; 85610; 85730; 92507; 92523; 93005; 93306; 95819; 97110; 97116; 97162; 97166; 97530; 97535; 99285; J7030; J7040; J7050; A4216; J2405; J3490

== ENCOUNTER → 2022-07-04 | Outpatient (CLI) | payer MEDICARE, MEDICAID, SELFPAY ==
[2022-07-04 14:59] LABS: Absolute Lymphocyte Count 1.53 X10^3/uL (0.83-4.51); Absolute Neutrophil Count 2.4 X10^3/uL (2.0-7.7); Basophil# 0.05 X10^3/uL; Basophil% 1.1 % (0-1); Eosinophil# 0.22 X10^3/uL; Eosinophils% 4.7 % (0-5); Hematocrit 36.6 % (37-47); Hemoglobin 12.2 g/dL (12.0-15.0); Lymphocyte # 1.53 X10^3/ul (0.83-4.51); Lymphocyte % 32.7 % (19-41); Mean Corp Hgb Conc 33.3 g/dL (32-36); Mean Corpuscular Hgb 33.8 pg (27.0-32.0); Mean Corpuscular Volume 101.4 fL (81-99); Mean Platelet Vol. 11.5 fl (6.2-12.0); Monocyte# 0.48 X10^3/uL; Monocyte% 10.3 % (0-10); NRBC Flagged by Analyzer 0 % (0-5); Neutrophil % 51.2 % (47-70); Platelet Count 104 K/mm3 (150-450); RBC Distribution Width CV 12.4 % (11.6-14.6); RBC Distribution Width SD 46.5 fl (35.1-43.9); Red Blood Count 3.61 M/mm3 (4.2-5.4); White Blood Count 4.7 K/mm3 (4.4-11.0)
[2022-07-04 16:06] LABS: ALB/GLOB Ratio 0.8 RATIO (0.9-2.4); AST(SGOT) 48 U/L (15-37); Alanine Aminotransfer ALT/SGPT 21 U/L (13-56); Albumin, Serum 3.4 g/dL (3.2-5.0); Alkaline Phosphatase 80 U/L (45-117); Anion Gap 7 (5-15); BUN 7 mg/dL (7-18); Calcium,Total 9.5 mg/dL (8.5-10.1); Chloride 105 mmol/L (98-107); Creatinine, Serum 0.63 mg/dL (0.55-1.02); EST Glomerular Filtration Rate 99 mL/min (>60); Est Glom Filt Rate - Afr Amer 120 mL/min (>60); Globulin 4.1 g/dL (2.2-4.2); Glucose 92 mg/dL (74-106); Magnesium 2.1 mg/dL (1.6-2.6); Potassium 3.7 mmol/L (3.5-5.1); Protein, Total 7.5 g/dL (6.4-8.2); Sodium Level 138 mmol/L (136-145); T4 Free Direct 0.75 ng/dL (0.76-1.46); Thyroid Stim Hormone (TSH) 6.17 uIU/mL (0.358-3.74)
[2022-07-08 18:49] LABS: KEPPRA (LEVETIRACETAM) 26.7 ug/mL (10.0-40.0)
== END | disposition home or self-care (01) ==
LOC: MFPLAB 13:58
PROVIDERS: PCP Family Medicine; Referring Provider Family Medicine; Visit Provider Family Medicine
DX: K70.31 Alcoholic cirrhosis of liver with ascites (principal); I48.91 Unspecified atrial fibrillation; R56.9 Unspecified convulsions; E03.9 Hypothyroidism, unspecified
CPT/HCPCS: 36415; 80053; 80177; 82140; 83735; 84439; 84443; 85025

== ENCOUNTER → 2022-07-07 | Outpatient (CLI) | payer MEDICARE, MEDICAID, SELFPAY ==
--- NOTE | 2022-07-07 08:59 | STRESSREP_ITS ---
Stress Test Report Date: 07/07/2022 Procedure: Exercise tolerance test/imaging study Indications: Arrhythmia Consent: Per the patient Procedure: The patient exercised on a Dax protocol for 4 minutes and 30 seconds achieving a peak heart rate of 153 bpm (100% predicted maximal heart rate) with a peak blood pressure 142/70 mmHg and a peak MET capacity of 7.0 METs. The baseline ECG demonstrated normal sinus rhythm. The peak exercise ECG showed no ischemic changes. Exercise EKG rhythm difficult to discern because of baseline artifact. Sinus tachycardia with frequent PACs versus atrial fibrillation. Both rest and recovery EKGs showed normal sinus rhythm. The functional capacity was considered suboptimal. There was no complaint of chest discomfort during exercise or recovery. The examination was discontinued secondary to target heart rate being achieved. The patient was injected with 11.5 mCi of technetium 99m Cardiolite and dalton bsequently rest SPECT Cardiolite nuclear imaging was obtained in the horizontal long, vertical long, and short axis views. Post-exercise, the patient was injected with 33.6 mCi of technetium 99m Cardiolite and subsequently stress SPECT Cardiolite nuclear imaging was obtained in the horizontal long, vertical long, and short axis views. A gated Cardiolite study at peak stress was obtained. The imaging part was technically difficult. Resting and poststress images not able to be aligned properly in the short axis. Rest and stress SPECT Cardiolite nuclear imaging status post realignment, brock lization, and attenuation correction, demonstrates possible ischemia in the anterior and apical regions. However as noted above, the study was technically difficult. There is end systolic thickening and brightening. The gated Cardiolite study demonstrates myocardial thickening and inward wall motion. The reported LVEF is 89%. Impression: 1. Technically adequate (percent predicted maximal heart rate greater than 85%) exercise tolerance test 2. Peak exercise ECG with no ischemic changes however rhythm difficult to discern. Likely sinus rhythm with frequent PACs 4. Technically difficult imaging study with no underlying resting and stress images. Possible anterior and apical ischemia. However with the technically difficult nature of the study, recommend further starting with another imaging modality such as coronary CT angiogram. 5. The gated Cardiolite study reports an LVEF of 89%. This note was generated with [employer] software. It may contain incorrect words, spelling, and punctuation that were not noted in checking the note before signing.
== END | disposition home or self-care (01) ==
LOC: CVS 06:29
PROVIDERS: PCP Family Medicine; Visit Provider Internal Medicine Cardiovascular Disease
DX: I48.91 Unspecified atrial fibrillation (principal); R94.31 Abnormal electrocardiogram [ECG] [EKG]
CPT/HCPCS: 78452; 93017; A9500

== ENCOUNTER → 2022-07-15 | Outpatient (CLI) | payer MEDICARE, MEDICAID, SELFPAY ==
--- NOTE | 2022-07-15 10:00 | US_ITS ---
STUDY: ABDOMINAL ULTRASOUND - ELASTOGRAPHY REASON FOR VISIT: Female, 67 years old. Cirrhosis. TECHNIQUE: Liver stiffness measurements were obtained on a Truli RS 85 ultrasound machine using a CA 1-7 probe following the SRU guidelines. 3 measurements were obtained using a 2-D-SWE method. TheIQR/M was 22 % suggesting a quality data set. TECHNICAL QUALITY: Adequate. COMPARISON: Comparison is made with prior study done earlier in the day. FINDINGS: Liver: Fatty infiltration of the liver. Median liver stiffness measured 15.7 kPa. US/Elastography Parenchyma/Organ IMPRESSION: Liver stiffness measures 15.7 kPa compatible with F3-F4 (Moderate to severe liver fibrosis) Metavir score. Electronically Signed: Irineo Baptitse MD at 10:59 EDT ,
--- NOTE | 2022-07-15 10:01 | US_ITS ---
STUDY: ABDOMINAL ULTRASOUND - RIGHT UPPER QUADRANT REASON FOR VISIT: Female, 67 years old ASCITES/cirrhosis TECHNIQUE: Ultrasound evaluation of the right upper quadrant was performed with real-time and static pitt-scale imaging. TECHNICAL QUALITY: Adequate. COMPARISON: Comparison is made with prior study dated November 09, 2022. FINDINGS: Liver: The liver measures 16.8 cm. There is increased echogenicity consistent with fatty infiltration. The bile ducts are within normal limits. There is hepatic color flow. The direction of portal flow is hepatopetal. There is no demonstrated mass lesion. Gallbladder: The patient is status post cholecystectomy. Common Bile Duct (C.B.D.): The common bile duct measures 6.2 mm. Pancreas: Normal size of the head, body and tail of the pancreas. There is normal echogenicity of the pancreas. There is no demonstrated pancreatic mass or cyst. Right Kidney: Normal size of the right kidney. The right kidney measures 11.8 cm x 4.2 cm x 4.4 cm. Normal renal cortex. The right cortex measures 1.3 cm. There is no demonstrated renal mass or cyst. There is no right hydronephrosis. US/Abdomen Limited IMPRESSION: Fatty infiltration of the liver. Status post cholecystectomy. Electronically Signed: Irineo Baptiste MD at 11:00 EDT ,
== END | disposition home or self-care (01) ==
LOC: US 09:58
PROVIDERS: PCP Family Medicine; Referring Provider Family Medicine; Visit Provider Family Medicine
DX: K70.31 Alcoholic cirrhosis of liver with ascites (principal); K76.0 Fatty (change of) liver, not elsewhere classified; Z90.49 Acquired absence of other specified parts of digestive tract
CPT/HCPCS: 76705; 76981

== ENCOUNTER → 2022-09-08 | Outpatient (CLI) | payer MEDICARE, MEDICAID, SELFPAY ==
[2022-09-08] VITALS (8 sets, daily range): BP systolic 108–131; BP diastolic 72–85; PULSE 72–84; RESP 14; TEMP 36.8; O2SAT 98–100; BMI 21.0
--- NOTE | 2022-09-08 13:00 | CT_ITS ---
INDICATION: abnormal result of other cardiovascular function study. LIMITED CT CHEST OVERREAD ONLY EXAMINATION: CT CHEST WITHOUT CONTRAST - CT Chest W/O Contrast Injection TECHNIQUE: Helically acquired images were obtained of the chest. A radiation dose optimization technique was used for this scan. IV Contrast dosage and agent: 60 cc of Isovue 370. COMPARISON: None. FINDINGS: Limited assessment of the chest was obtained for coronary artery assessment and coronary artery calcification assessment. The cardiovascular findings are dictated separately by the home care chaplain. Trace scattered areas of subsegmental atelectasis in the visualized lungs. No focal consolidations or suspicious masses. Mild arterial atherosclerotic disease in the descending thoracic aorta. No aneurysmal dilatation in the visualized portions of the aorta. Normal course and caliber of the visualized coronary trunk with no aneurysmal dilatation. The minimally visualized upper abdomen is unremarkable. The visualized bones and soft tissues are unremarkable. CT/Limited Chest CT Cardiac Only IMPRESSION: 1. No significant incidental findings in limited assessment of the chest. 2. Cardiovascular assessment dictated separately by the home care chaplain. Electronically Signed: Gray Florentino MD at 16:20 EDT ,
[2022-09-08] MEDS: Metoprolol Tartrate 5 MG/5 ML Vial IV ×3 (13:26→13:55)
[2022-09-08 13:41] LABS: CREATININE FINGERSTICK < 0.9 mg/dL (0.55-1.02); EGFR FINGERSTICK > 60.0000 mL/min (>60)
[2022-09-08] MEDS: Nitroglycerin SL (ED/IMG/CATH) 0.4 MG TABLET SL (13:50)
--- NOTE | 2022-09-08 18:25 | CA.SCORE ---
Calcium Scoring Date of Study:: 09/08/22 Indications Indications: Abnormal cardiovascular testing Coronary Calcium Scoring: High-resolution Computed Tomographic imaging of the chest was performed on [09/08/2022], with particular attention paid to the coronary arteries. Images from the examination were analyzed for the presence and extent of coronary artery calcification , using coronary calcium quantification software. The patient tolerated the procedure well and there were no complications. The results of the coronary calcification analysis are provided below. In addition intravenous contrast was injected and gated images were obtained reconstructed and displayed. Motion artifact was noted to be minimal. Findings Coronary Artery Left Main (LM): 146 Left Anterior Descending (LAD): 0 Left Circumflex (LCX): 67 Right Coronary Artery (RCA): 0 Total Agatston Score: 213 Percentile Rankinth-90th Calcium Scoring Interpretation: Different methods to categorize the overall amount of coronary plaque. Overall amount CAC SIS Visual of coronary plaque P1 Mild -100 <2 1-2 vessels with mild amount of plaque P2 Moderate 101-300 3-4 1-2 vessels with moderate amount, 3 vessels with mild amount of plaque P3 Severe 301-999 5-7 3 vessels with moderate amount, 1 vessel with severe amount of plaque P4 Extensive >1000 >8 2-3 vessels with severe amount of plaque Calcium Score: Moderate: 1-2 vessels w/moderate amt, 3 vessels w/mild amt of plaque Conclusion: Moderate 1-2 vessels with moderate amount of plaque noted. Nonobstructive plaque noted in the left main coronary artery
--- NOTE | 2022-09-08 18:28 | CCTA.WCONT ---
CCTA w/Cont Coronary Arteries Date of Study:: 09/08/22 Abnormal cardiovascular testing LEFT MAIN CORONARY ARTERY: The left main coronary artery arose from the left coronary cusp and bifurcating to left anterior descending artery and left circumflex artery. There was mild calcification noted in this vessel which was nonobstructive. [] LEFT ANTERIOR DESCENDING CORONARY ARTERY: The left anterior descending artery was a medium size vessel giving off a first diagonal branch and then coursing towards the apex with septal perforators and no high-grade stenosis present. [] LEFT CIRCUMFLEX CORONARY ARTERY: This was a nondominant but medium size vessel giving off a prominent first obtuse marginal branch. No significant stenosis was present. There was mid segment mild calcification present [] RIGHT CORONARY ARTERY: Dominant large vessel giving of an acute marginal branch, posterior descending artery and posterolateral vessel with no significant stenosis present. MITRAL VALVE: Mitral on the calcification present [] AORTIC VALVE: Trileaflet aortic valve [] LEFT VENTRICLE: [] CORONARY CALCIUM SCORE: 213 []
== END | disposition home or self-care (01) ==
LOC: CT 12:55
PROVIDERS: PCP Family Medicine; Referring Provider Internal Medicine Cardiovascular Disease; Visit Provider Internal Medicine Cardiovascular Disease
DX: R94.39 Abnormal result of other cardiovascular function study (principal); I49.9 Cardiac arrhythmia, unspecified
CPT/HCPCS: 75571; 75574; 76380; 96374; Q9967

== ENCOUNTER → 2022-12-15 | Outpatient (CLI) | payer MEDICARE, SELFPAY ==
--- NOTE | 2022-12-15 17:52 | CT_ITS ---
INDICATION: HxTBI; bilat subdural hematomas (04/2022); epilepsy EXAMINATION: CT BRAIN - CT Head or Brain W/O Contrast Injection TECHNIQUE: Multiple axial images were obtained of the head without intravenous contrast. A radiation dose optimization technique was used for this scan. IV Contrast dosage and agent: None. RADIATION DOSAGE (If Supplied By Facility): CTDIvol = ( 44.99 ) mGy, DLP = ( 762.36 ) mGycm COMPARISON: 05/13/2022. FINDINGS: BRAIN PARENCHYMA: No intra- or extra-axial hemorrhage. No evidence of acute infarct. No intracranial mass or mass effect. Slightly diffuse attenuation within the deep white matter compatible with mild microangiopathic white matter disease. Posterior fossa structures are unremarkable. CSF SPACES: Mild generalized brain atrophy. No hydrocephalus. Basal cisterns are patent. CALVARIUM, SKULL BASE, PARANASAL SINUSES AND MASTOID AIR CELLS: Clear. No discrete lytic or blastic abnormalities. ORBITS: Both globes, extraocular muscles, optic nerves and retrobulbar fat appear unremarkable. CT/Brain/Head without Contrast IMPRESSION: Chronic changes as described. No acute intracranial hemorrhage or space-occupying lesion. Electronically Signed: Suri Cardoza, at 18:39 EDT ,
== END | disposition home or self-care (01) ==
LOC: CT 17:49
PROVIDERS: PCP Family Medicine; Referring Provider Psychiatry & Neurology Neurology; Visit Provider Psychiatry & Neurology Neurology
DX: Z87.820 Personal history of traumatic brain injury (principal); G40.909 Epilepsy, unspecified, not intractable, without status epilepticus; Z86.79 Personal history of other diseases of the circulatory system
CPT/HCPCS: 70450

== ENCOUNTER → 2022-12-23 | Outpatient (CLI) | payer MEDICARE, SELFPAY ==
[2022-12-23 17:40] LABS: Absolute Lymphocyte Count 1.17 X10^3/uL (0.83-4.51); Absolute Neutrophil Count 4.2 X10^3/uL (2.0-7.7); Basophil# 0.04 X10^3/uL; Basophil% 0.6 % (0-1); Eosinophil# 0.08 X10^3/uL; Eosinophils% 1.2 % (0-5); Hematocrit 39.6 % (37-47); Hemoglobin 13.4 g/dL (12.0-15.0); Lymphocyte # 1.17 X10^3/ul (0.83-4.51); Lymphocyte % 18.2 % (19-41); Mean Corp Hgb Conc 33.8 g/dL (32-36); Mean Corpuscular Hgb 34.3 pg (27.0-32.0); Mean Corpuscular Volume 101.3 fL (81-99); Mean Platelet Vol. 11.7 fl (6.2-12.0); Monocyte# 0.93 X10^3/uL; Monocyte% 14.5 % (0-10); NRBC Flagged by Analyzer 0 % (0-5); Neutrophil # 4.19 X10^3/uL (2.7-7.7); Neutrophil % 65.2 % (47-70); Platelet Count 100 K/mm3 (150-450); RBC Distribution Width CV 13.1 % (11.6-14.6); RBC Distribution Width SD 48.9 fl (35.1-43.9); Red Blood Count 3.91 M/mm3 (4.2-5.4); White Blood Count 6.4 K/mm3 (4.4-11.0)
[2022-12-23 17:54] LABS: Vitamin B12 434 pg/mL (211-911)
[2022-12-23 18:08] LABS: ALB/GLOB Ratio 0.9 RATIO (0.9-2.4); AST(SGOT) 33 U/L (15-37); Alanine Aminotransfer ALT/SGPT 22 U/L (13-56); Albumin, Serum 3.7 g/dL (3.2-5.0); Alkaline Phosphatase 104 U/L (45-117); Anion Gap 8 (5-15); BUN 8 mg/dL (7-18); BUN/Creat Ratio 12.6 RATIO (10-20); Calcium,Total 9.3 mg/dL (8.5-10.1); Chloride 103 mmol/L (98-107); Creatinine, Serum 0.64 mg/dL (0.55-1.02); EST Glomerular Filtration Rate 99 mL/min (>60); Est Glom Filt Rate - Afr Amer 120 mL/min (>60); Globulin 4.1 g/dL (2.2-4.2); Glucose 88 mg/dL (74-106); Magnesium 2.3 mg/dL (1.6-2.6); Potassium 3.7 mmol/L (3.5-5.1); Protein, Total 7.8 g/dL (6.4-8.2); Sodium Level 137 mmol/L (136-145); T4 Free Direct 1.18 ng/dL (0.76-1.46); Thyroid Stim Hormone (TSH) 2.47 uIU/mL (0.358-3.74)
[2022-12-27 00:07] LABS: KEPPRA (LEVETIRACETAM) 22.6 ug/mL (10.0-40.0); Vitamin B1, Thiamine 111.6 nmol/L (66.5-200.0)
== END | disposition home or self-care (01) ==
LOC: MFPLAB 15:10
PROVIDERS: Psychiatry & Neurology Neurology; PCP Family Medicine; Visit Provider Family Medicine
DX: E03.9 Hypothyroidism, unspecified (principal); I48.91 Unspecified atrial fibrillation
CPT/HCPCS: 36415; 80053; 80177; 82140; 82607; 82746; 83735; 84425; 84439; 84443; 85025

== ENCOUNTER → 2023-11-19 | Outpatient (CLI) | payer MEDICARE, SELFPAY ==
[2023-11-19 10:40] LABS: AST(SGOT) 41 U/L (15-37); Alanine Aminotransfer ALT/SGPT 29 U/L (13-56); Albumin, Serum 3.8 g/dL (3.2-5.0); Alkaline Phosphatase 74 U/L (45-117); Bilirubin, Direct 0.42 mg/dL (0.00-0.30); Globulin 3.6 g/dL (2.2-4.2); Protein, Total 7.4 g/dL (6.4-8.2)
[2023-11-23 18:08] LABS: KEPPRA (LEVETIRACETAM) 13.3 ug/mL (10.0-40.0)
== END | disposition home or self-care (01) ==
LOC: MTLAB 08:56
PROVIDERS: PCP Family Medicine; Referring Provider Psychiatry & Neurology Neurology; Visit Provider Psychiatry & Neurology Neurology
DX: G40.909 Epilepsy, unspecified, not intractable, without status epilepticus (principal)
CPT/HCPCS: 36415; 80076; 80177; 82140

== ENCOUNTER → 2024-02-18 | Outpatient (CLI) | payer MEDICARE, SELFPAY ==
[2024-02-18 17:56] LABS: Basophil# 0.03 X10^3/uL; Basophil% 0.6 % (0-1); Eosinophil# 0.14 X10^3/uL; Eosinophils% 2.6 % (0-5); Hematocrit 37.1 % (37-47); Hemoglobin 12.8 g/dL (12.0-15.0); Lymphocyte % 30.1 % (19-41); Mean Corp Hgb Conc 34.5 g/dL (32-36); Mean Corpuscular Hgb 33.8 pg (27.0-32.0); Mean Corpuscular Volume 97.9 fL (81-99); Mean Platelet Vol. 10.5 fl (6.2-12.0); Monocyte# 0.58 X10^3/uL; Monocyte% 10.9 % (0-10); NRBC Flagged by Analyzer 0 % (0-5); Neutrophil # 2.96 X10^3/uL (2.7-7.7); Neutrophil % 55.6 % (47-70); Platelet Count 103 K/mm3 (150-450); RBC Distribution Width CV 12.7 % (11.6-14.6); RBC Distribution Width SD 45.7 fl (35.1-43.9); Red Blood Count 3.79 M/mm3 (4.2-5.4); White Blood Count 5.3 K/mm3 (4.4-11.0)
[2024-02-18 18:08] LABS: Vitamin B12 573 pg/mL (211-911)
--- OUTSIDE RECORDS SUMMARY | 2024-02-18 18:58 | XMS RPT_ITS | CCD ---
Author Organization [facility] Care Team Providers Care Water Rights Specialist Name Role Phone PROSPER LEMOS Unavailable Unavailable Results Test Name Value Interpretation Reference Range Facility [facility] 11-04-2017 [facility] Letter TextAnileonardo TimmonsSanta [facility] Ophthalmology[address] [place] [id number]: [phone] 2/18/2018Renetta ErnstWe have tried to reach you several times to schedule for an exam with Wilfredo Timmons MD. It is very important that you follow up with anophthalmologist for treatment of your condition.Please call our office to schedule and appointment or let us know if you willbe following up at a different facility so we can send you a release ofinformation to sign in the interest of sharing our findings to ensure thatyou receive the care you need.If you have already done so, please disregard this letter.We look forward to hearing from you soon!Sincerely,Prosper Timmons [facility] Op[facility] CenterMayela 02-02[facility]2017 [facility] Telephone (OPHTSK) MARIA EUGENIA ERNST ([id number]) 1955 FDate Time Provider [id number]/16/17 PROSPER LEMOS OPHTSK During your visit today, we recorded the following information about you:Rajesh Nielsen Him Op Asst 02/02/2017 9:59 AM [facility]ignedSt[facility] for patient.The patient is scheduled for MRI tomorrow 02/03/17. Bharati states that ifpatient has not had labs done, they are able to do a finger prick before MRI.For the finger prick, they would need the order faxed to them.CRYSTAL Barrett, Tech 02/02/2017 11:00 AM SignedMRI may need to be cancelled and rescheduled as patient has not receivedpre-cert yet. Insurance was to have faxed us a form on Thursday they needed forfurther review to go to Dr Prosper Lemos. Will check with PSR to see ifcorrespondence received.CRYSTAL Barrett, Tech 02/02/2017 3:32 PM SignedFax received today requesting notes from visit - (sent to insurance company.)MRI originally scheduled for tomorrow is cancelled pending insuranceauthorization.Jonny Street Psr 11/04/2017 11:50 AM SignedSpoke with patient in August [address] Lemos, patientnever had imaging or neuro consult.Patient stated she was uninsured and unable to afford out of pocket.I discussed [facility]'s financial assistance policy with the patient at length andinformed FC that the patient would likely qualify and needed treatment.FC Kassie Mason left multiple voice mails in attempt to reach patient tohelp her qualify for HCAP, received no response.I have also left multiple voice mails for patient in attempt to follow up withher on the importance of treatment and have received no return response.Allergies As of Date: 02/02/2017(No Known Allergies)Date Reviewed: 12/11/2016Reviewed by: Prosper Lemos - Fully AssessedReason for Visit: Results [95]Reason For Visit History RecordedPrescriptions as of 02/02/2017 Sig: SPIRONOLACTONE 100 MG TABLET VITAMIN B COMPLEX ORAL Take by mouth. MULTI VITAMIN ORAL Take by mouth. FERROUS SULFATE 325 MG (65 MG* 1 tablet twice daily. FUROSEMIDE 40 MG TABLET 1 tablet every 48 hours. LACTULOSE 10 GRAM/15 ML ORAL * 30 mL twice daily. PANTOPRAZOLE 40 MG TABLET,DEL* 1 tablet once daily. SPIRONOLACTONE 50 MG TABLET 100 mg once daily. METHOCARBAMOL 500 MG TABLET Take 500 mg by mouth four lina* OMEPRAZOLE 20 MG CAPSULE,ZANDER* Take 20 mg by mouth once mini* PHENOBARBITAL 30 MG TABLET Take 30 mg by mouth twice yifan* PHOSPHA 250 NEUTRAL ORAL Take by mouth. SENNOSIDES 8.6 MG TABLET Take 8.6 mg by mouth twice da* SODIUM CHLORIDE OXYCODONE ORAL Take by mouth. CLEARLAX ORAL Take by mouth. ALBUTEROL SULFATE ORAL Take by mouth. IPRATROPIUM BROMIDE 0.02 % SO* Use 0.5 mg via nebulizer four* FOLIC ACID ORAL Take by mouth. HEPARIN (PORCINE) 5,000 UNIT/* Inject 5,000 Units subcutaneo* LEVOTHYROXINE ORAL Take by mouth. LIDOCAINE 5 % TOPICAL PATCH Apply 1 Patch as directed mellisa*Problem List As Of Date: 02/02/2017(None) Status:Closed by RAJESH MCKEON on 04/10/17 [facility] 12-11-2016 HOSP Office Visit OPHT (OPHTSK) MARIA EUGENIA ERNST ([id number]) 1955 [facility] Time Provider Department12/11/16 1:30 PM PROSPER LEMOS OPHTSK During your visit today, we recorded the following information about you:Prosper Timmons MD 12/11/2016 3:29 PM SignedAssessment and Plan1. Visual field constriction of right eyeAcute since at least 3 weeks or less per patient before the 09/22/16 visit. 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 Subarachnoid hemorrhage (HCC)From trauma one year agoI have confirmed and edited as necessary the relevant ophthalmic history, ROS,and the neuro exam findings as obtained by others. I have seen and examinedMaria Eugenia Ernst.I have discussed the case and the management of this patient's care with theResident/Fellow, if applicable. I also have reviewed and agree with theassessment and plan as stated above and agree with all of its relevantcomponents.Prosper Timmons, MDReferring Provider: SELF [200]Allergies As of Date: 12/11/2016(No Known Allergies)Date Reviewed: 12/11/2016Reviewed by: Prosper Lemos - Fully AssessedReason for Visit: Visual Field Defect Follow Up [3447] Cmt: right eyePrimary Visit Diagnosis:Traumatic optic neuropathy [H46.8] Other Visit Diagnoses:Visual field constriction of right eye [H53.481] Subarachnoid hemorrhage (HCC) [I60.9] Screening for nephropathy [Z13.89]Order(s):VISUAL FIELD 24-2 OU (BOTH EYES) [9677226] Order #: [id number]: 1 IOP MEASUREMENT [[id number]] Order #: [id number]: 1 CREATININE BLD [SQCRET] Order #: [id number]: 1 FUTURE MRI BRAIN WO/W IVCON [[id number]] Order #: [id number]: 1 FUTURE iv contrast (radiology procedure)MRI Brain Inject, intravenously, once for 1 dose.No IV access, insert saline lock prior to beginning of sedation, infusion, injection of imaging exam.Discontinue saline lock post exam. If Pt. has a central line or IVAD, may access for administration according to line specific nursing protocol.Once exam is complete flush line and de-access according to line specific nursing protocol in the MR contrast administration guidelines linkDisp: 1 EachRfl: 0Prescriptions as of 12/11/2016 Sig: SPIRONOLACTONE 100 MG TABLET VITAMIN B COMPLEX ORAL Take by mouth. PANTOPRAZOLE 40 MG TABLET,DEL* 1 tablet once daily. FOLIC ACID ORAL Take by mouth. LEVOTHYROXINE ORAL Take by mouth. IV CONTRAST (RADIOLOGY PROCED* MRI Brain Inject, intravenous* MULTI VITAMIN ORAL Take by mouth. FERROUS SULFATE 325 MG (65 MG* 1 tablet twice daily. FUROSEMIDE 40 MG TABLET 1 tablet every 48 hours. LACTULOSE 10 GRAM/15 ML ORAL * 30 mL twice daily. SPIRONOLACTONE 50 MG TABLET 100 mg once daily. METHOCARBAMOL 500 MG TABLET Take 500 mg by mouth four lina* OMEPRAZOLE 20 MG CAPSULE,ZANDER* Take 20 mg by mouth once mini* PHENOBARBITAL 30 MG TABLET Take 30 mg by mouth twice yifan* PHOSPHA 250 NEUTRAL ORAL Take by mouth. SENNOSIDES 8.6 MG TABLET Take 8.6 mg by mouth twice da* SODIUM CHLORIDE OXYCODONE ORAL Take by mouth. CLEARLAX ORAL Take by mouth. ALBUTEROL SULFATE ORAL Take by mouth. IPRATROPIUM BROMIDE 0.02 % SO* Use 0.5 mg via nebulizer four* HEPARIN (PORCINE) 5,000 UNIT/* Inject 5,000 Units subcutaneo* LIDOCAINE 5 % TOPICAL PATCH Apply 1 Patch as directed mellisa*Problem List As Of Date: 12/11/2016(None)Prescripti ons ordered this encounter Disp Refills Start End IV CONTRAST (RADIOLOGY PROCEDURE) 1 Ea* 0 12/11/2016 12/12/2016 Class: In Office Sig: MRI Brain Inject, intravenously, once for 1 dose.No IV access, insert saline lock prior to beginning of sedation, infusion, injection of imaging exam.Discontinue saline lock post exam. If Pt. has a central line or IVAD, may access for administration according to line specific nursing protocol.Once exam is complete flush line and de-access according to line specific nursing protocol in the MR contrast administration guidelines linkDisposition: Return for schedule with ROGER juan for worseing vision od.Follow-up and Disposition History RecordedLetter TextEncounter Number: [id number] Status:Closed by PROSPER LEMOS MD on 12/11/16 [facility] PROGRESSon 12-11-2016 Protein mass conc HNO ID: [id number]: Prosper Hines: (none)Author Type: PhysicianType: Progress NotesFiled: 12/11/2016 3:29 PMNote Text:Assessment and Plan1. 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 Subarachnoid hemorrhage (HCC)From trauma one year agoI have confirmed and edited as necessary the relevant ophthalmic history,ROS, and the neuro exam findings as obtained by others. I have seen andexamined Maria Eugenia Ernst.I have discussed the case and the management of this patient's care withthe Resident/Fellow, if applicable. I also have reviewed and agree withthe assessment and plan as stated above and agree with all of its relevantcomponents.Prosper Timmons MD Normal [facility] Encounters Encounter Date Encounter Type Care Provider Facility Start: 12-11-2016 End: 12-12-2016 Patient encounter PROSPER LEMOS [facility] Summary Purpose Family History No Family History Records Found Advance Directives No Advanced Directives Records Found Additional Source Comments INFORMATION SOURCE (unrecogn ized section and content) DATE CREATED AUTHOR 12/02/2017 [facility] FOR RECORDS PERTAINING TO PATIENTS WHO ARE OR HAVE BEEN ENROLLED IN A CHEMICAL DEPENDENCY/SUBSTANCEABUSE PROGRAM, SOME INFORMATION MAY BE OMITTED. This clinical summary was aggregated from multiple sources. Caution should be exercised in using it in the provision of clinical care. This summary normalizes information from multiple sources, and as a consequence, information in this document may materially change the coding, format and clinical context of patient data. In addition, data may be omitted in some cases. CLINICAL DECISIONS SHOULD BE BASED ON THE PRIMARY CLINICAL RECORDS. [employer] provides no warranty or guarantee of the accuracy or completeness of information in this document.
[2024-02-18 19:02] LABS: ALB/GLOB Ratio 1.2 RATIO (0.9-2.4); AST(SGOT) 45 U/L (15-37); Alanine Aminotransfer ALT/SGPT 32 U/L (13-56); Albumin, Serum 3.9 g/dL (3.2-5.0); Alkaline Phosphatase 80 U/L (45-117); Anion Gap 9 (5-15); BUN 20 mg/dL (7-18); BUN/Creat Ratio 26.6 RATIO (10-20); Calcium,Total 9.1 mg/dL (8.5-10.1); Chloride 106 mmol/L (98-107); Creatinine, Serum 0.75 mg/dL (0.55-1.02); EST Glomerular Filtration Rate 81 mL/min (>60); Est Glom Filt Rate - Afr Amer 98 mL/min (>60); Ferritin 54 ng/mL (8-252); Globulin 3.3 g/dL (2.2-4.2); Glucose 88 mg/dL (74-106); Iron 56 ug/dL (50-170); Iron Binding Capacity,Total 358 ug/dL (250-450); Magnesium 2.1 mg/dL (1.6-2.6); Potassium 3.8 mmol/L (3.5-5.1); Protein, Total 7.2 g/dL (6.4-8.2); Sodium Level 139 mmol/L (136-145); T4 Free Direct 0.95 ng/dL (0.76-1.46)
== END | disposition home or self-care (01) ==
PROVIDERS: PCP Family Medicine; Referring Provider Family Medicine; Visit Provider Family Medicine
DX: E03.9 Hypothyroidism, unspecified (principal); I48.91 Unspecified atrial fibrillation; D63.8 Anemia in other chronic diseases classified elsewhere
CPT/HCPCS: 36415; 80053; 82607; 82728; 82746; 83540; 83550; 83735; 84439; 84443; 85025